=== PATIENT | female | born 1955 | race African-American/Black ===

== ENCOUNTER 2016-09-08 12:58 | Emergency (ER) | payer MEDICARE, MEDICAID ==
[2016-09-08] MEDS ORDERED: NS 0.9% 1000 ML* 1,000 ML IV ONE (18:03)
[2016-09-08] MEDS ORDERED: DICYCLOMINE HCL* 20 MG/2 ML VIAL IM ONE (18:03)
[2016-09-08] MEDS ORDERED: Ondansetron INJ* 2 MG/ML VIAL IV ONE (18:03)
--- NOTE | 2016-09-08 18:39 | ED ---
Abdominal Pain/Female - HPI Summary HPI Summary: Patient presents for symptom alleviation of abdominal cramping and watery stool for the last 1 day. No allev factors attempted. Denies systemic symptoms, new or bad foods, medicatoin changes, recent travel or antibiotics. Cramping is intermittent and diffuse. - History of Current Complaint Chief Complaint: EDAbdPain Stated Complaint: DIARRHEA Time Seen by Provider: 09/08/16 17:58 Hx Obtained From: Patient Onset/Duration: Gradual Onset, Lasting Days Timing: Intermittent Episode Lasting Pain Intensity: 5 Allergies/Adverse Reactions: Allergies Allergy/AdvReac Type Severity Reaction Status Date / Time No Known Allergies Allergy Verified 06/26/16 13:14 PMH/Surg Hx/FS Hx/Imm Hx Endocrine/Hematology History: Reports: Hx Diabetes Denies: Hx Anticoagulant Therapy, Hx Thyroid Disease Cardiovascular History: Reports: Hx Hypercholesterolemia, Hx Hypertension Denies: Hx Angioplasty, Hx Auto Implanted Cardiovert Defib, Hx Cardiac Arrest , Hx Congestive Heart Failure, Hx Coronary Artery Disease, Hx Deep Vein Thrombosis, Hx Pacemaker/ICD Respiratory History: Denies: Hx Asthma, Hx Chronic Obstructive Pulmonary Disease (COPD) GI History: Reports: Hx Gastroesophageal Reflux Disease, Hx Irritable Bowel, Other GI Disorders - IBS History: Denies: Hx Renal Disease Musculoskeletal History: Reports: Hx Back Problems, Other Musculoskeletal History - left hip joint disease Sensory History: Reports: Hx Contacts or Glasses, Hx Glaucoma Denies: Hx Hearing Aid Opthamlomology History: Reports: Hx Contacts or Glasses, Hx Glaucoma Neurological History: Reports: Hx Headaches Denies: Hx Dementia, Hx Seizures Psychiatric History: Denies: Hx Panic Disorder, Hx Substance Abuse - Cancer History Hx Chemotherapy: No Hx Radiation Therapy: No - Surgical History Surgery Procedure, Year, and Place: hysterectomy;. colonoscopy; - Immunization History Date of Tetanus Vaccine: pt unable to recall Date of Influenza Vaccine: pt unable to recall Infectious Disease History: No Infectious Disease History: Denies: Hx Hepatitis, Hx Human Immunodeficiency Virus (HIV), Hx Tuberculosis , Traveled Outside the [place] in Last 30 Days - Family History Known Family History: Positive: Other - Negative for Breast CA - Social History Alcohol Use: None Hx Substance Use: No Substance Use Type: Reports: None Hx Tobacco Use: No Smoking Status (MU): Never Smoked Tobacco Review of Systems Negative: Fever, Chills Cardiovascular: Negative Respiratory: Negative Positive: Abdominal Pain, Diarrhea. Negative: Vomiting Genitourinary: Negative All Other Systems Reviewed And Are Negative: Yes Physical Exam Triage Information Reviewed: Yes Vital Signs On Initial Exam: Initial Vitals Temp Pulse Resp BP Pulse Ox 98.1 F 87 20 138/71 100 09/08/16 13:05 09/08/16 13:05 09/08/16 13:05 09/08/16 13:05 09/08/16 13:05 Vital Signs Reviewed: Yes Appearance: Positive: Well-Appearing, No Pain Distress, Well-Nourished Skin: Positive: Warm, Skin Color Reflects Adequate Perfusion, Dry Neck: Positive: Supple Respiratory/Lung Sounds: Positive: Clear to Auscultation, Breath Sounds Present Cardiovascular: Positive: Normal, RRR, Pulses are Symmetrical in both Upper and Lower Extremities Abdomen Description: Positive: No Organomegaly, Soft. Negative: CVA Tenderness (R), CVA Tenderness (L), Distended, Guarding, Hernia @, Hepatomegaly Musculoskeletal: Positive: Normal, Strength/ROM Intact Neurological: Positive: Normal, Sensory/Motor Intact, Alert, Oriented to Person Place, Time, CN Intact II-III, Reflexes Intact, NV Bundle Intact Distally, Normal Gait Diagnostics - Vital Signs Vital Signs Temp Pulse Resp BP Pulse Ox 09/08/16 17:00 98.3 F 87 20 140/81 100 09/08/16 16:00 98.0 F 80 20 125/74 100 09/08/16 14:57 97.6 F 82 16 135/74 100 09/08/16 13:59 98.7 F 85 16 130/77 100 09/08/16 13:05 98.1 F 87 20 138/71 100 - Laboratory Lab Statement: Any lab studies that have been ordered have been reviewed, and results considered in the medical decision making process. Abdominal Pain Fem Course/Dx - Diagnoses Differential Diagnosis: Positive: Other - Primary concern for viral enteritis. She was offered imaging and lab evaluation, but was deferred and only wants supportive care. Will re-assess after IVF, antispasmodic, antiemetic. I reassessed her at 1953 and she felt better and desired discharge. I did re- offer lab and imaging testing. She again deferred, but did understand the clear return instructions and PCP follow up. Provider Diagnoses: Abdominal pain Discharge - Discharge Plan Condition: Improved Disposition: HOME Prescriptions: Dicyclomine CAP* [Bentyl CAP*] 20 mg PO TID PRN #20 cap PRN Reason: Abdominal Cramping Ondansetron TAB* [Zofran Tab*] 4 mg PO Q6H PRN #10 tab PRN Reason: Nausea Patient Education Materials: Abdominal Pain (ED) Referrals: Amado Morales MD [Medical Doctor] - Additional Instructions: Try the following for the abdominal cramping and nausea: 1. Zofran (Ondansetron) 1 to 2 tablets every 6 hours for nausea. One tablets for mild to moderate nausea. Two tablets for moderate to severe nausea. 2. Bentyl (Dicyclomine) 1 tablets every 6 to 8 hours for abdominal cramping.
[2016-09-08 20:16] LABS: Urine Bilirubin Negative (Negative); Urine Glucose Negative (Negative); Urine Nitrite Negative (Negative)
[2016-09-08 20:33] VITALS: BP 99/48
== END 2016-09-08 20:32 | disposition home or self-care (01) ==
LOC: ED 12:58
DX: R10.9 Unspecified abdominal pain (principal); E11.9 Type 2 diabetes mellitus without complications; I10 Essential (primary) hypertension; E78.00 Pure hypercholesterolemia, unspecified; K21.9 Gastro-esophageal reflux disease without esophagitis
CPT/HCPCS: 81003; 96360; 96374; 96375; 99282; J0500; J2405

== ENCOUNTER 2016-10-21 05:34 | Observation (INO) | payer MEDICARE, MEDICAID ==
[2016-10-21] MEDS ORDERED: Aspirin Low Dose CHEW TAB* 81 MG PO ONE (05:48)
[2016-10-21] MEDS ORDERED: Ondansetron INJ* 2 MG/ML VIAL IV ONE (06:03)
[2016-10-21] MEDS ORDERED: Morphine INJ* 4 MG/ML 1 ML SYRINGE IV ONE (06:03)
[2016-10-21 06:18] LABS: Hematocrit 38 % (35-47); Hemoglobin 12.2 g/dl (12.0-16.0); Mean Corpuscular HGB Conc 32 g/dl (31-36); Mean Corpuscular Hemoglobin 27 pg (27-31); Mean Corpuscular Volume 82 fL (80-97); Mean Platelet Volume 8 um3 (7.4-10.4); Red Cell Distribution Width 17 % (10.5-15); White Blood Count 8.9 10^3/ul (3.5-10.8)
[2016-10-21 06:36] LABS: ALT 15 U/L (7-52); Albumin 3.5 g/dL (3.2-5.2); Alkaline Phosphatase 73 U/L (34-104); BUN/Creatinine Ratio 15.4 (8-20); Blood Urea Nitrogen 12 mg/dL (6-24); CO2 Carbon Dioxide 24 mmol/L (22-32); Calcium 9.2 mg/dL (8.6-10.3); Chloride 106 mmol/L (101-111); EGFR African American 96.9 (>60); EGFR Non-African American 75.3 (>60); Globulin 3.7 g/dL (2-4); Glucose 102 mg/dL (70-100); Sodium 136 mmol/L (133-145); Total Protein 7.2 g/dL (6.4-8.9)
--- NOTE | 2016-10-21 06:51 | ED ---
Jt Do Claudia, scribed for Sinai Roche MD on 10/21/16 at 0608 . HPI Chest Pain - HPI Summary HPI Summary: 61 year old female presents to the ED with left anterior CP. Pt notes sudden onset yesterday. She note the pain has been constant since. She attributed it to gas since she has frequent gas but the pain persisted. Deep breaths do not aggravate he Sx and she has no recent travel and no calf pain. NO PMHX of DVT or PE, pt notes the worse an was at 0100 this am,. - History of Current Complaint Chief Complaint: EDChestPainROMI Time Seen by Provider: 10/21/16 05:47 Hx Obtained From: Patient Onset/Duration: Started Days Ago - yesterday 10/20 Timing: Constant Pain Intensity: 10 Pain Scale Used: 0-10 Numeric Chest Pain Location: Left Anterior Chest Pain Radiates: No Character: Pressure/Squeezing Aggravating Factor(s): Nothing Alleviating Factor(s): Nothing Associated Signs and Symptoms: Positive: Chest Pain. Negative: Shortness of Breath, Calf Pain/Swelling - Additional Pertinent History Primary Care Physician: [id number] - Allergy/Home Medications Allergies/Adverse Reactions: Allergies Allergy/AdvReac Type Severity Reaction Status Date / Time No Known Allergies Allergy Verified 10/21/16 06:18 Home Medications: Home Medications Kkyxaow-Mvivsaoggsqft-Bulljxzw [Excedrin Migraine] 1 tab PO BID 10/21/16 [ History Confirmed 10/21/16] Multiple Vitamin [Multivitamins] 1 cap PO DAILY 10/21/16 [History Confirmed ] Potassium 75 mg PO DAILY 10/21/16 [History Confirmed 10/21/16] PMH/Surg Hx/FS Hx/Imm Hx Previously Healthy: Yes Endocrine/Hematology History: Reports: Hx Diabetes Denies: Hx Anticoagulant Therapy, Hx Thyroid Disease Cardiovascular History: Reports: Hx Hypercholesterolemia, Hx Hypertension Denies: Hx Angioplasty, Hx Auto Implanted Cardiovert Defib, Hx Cardiac Arrest , Hx Congestive Heart Failure, Hx Coronary Artery Disease, Hx Deep Vein Thrombosis, Hx Pacemaker/ICD Respiratory History: Denies: Hx Asthma, Hx Chronic Obstructive Pulmonary Disease (COPD) GI History: Reports: Hx Gastroesophageal Reflux Disease, Hx Irritable Bowel, Other GI Disorders - IBS History: Denies: Hx Renal Disease Musculoskeletal History: Reports: Hx Back Problems, Other Musculoskeletal History - left hip joint disease Sensory History: Reports: Hx Contacts or Glasses, Hx Glaucoma Denies: Hx Hearing Aid Opthamlomology History: Reports: Hx Contacts or Glasses, Hx Glaucoma Neurological History: Reports: Hx Headaches Denies: Hx Dementia, Hx Seizures Psychiatric History: Denies: Hx Panic Disorder, Hx Substance Abuse - Cancer History Hx Chemotherapy: No Hx Radiation Therapy: No - Surgical History Surgery Procedure, Year, and Place: hysterectomy;. colonoscopy; - Immunization History Date of Tetanus Vaccine: pt unable to recall Date of Influenza Vaccine: pt unable to recall Infectious Disease History: No Infectious Disease History: Denies: Hx Hepatitis, Hx Human Immunodeficiency Virus (HIV), Hx Tuberculosis , Traveled Outside the [place] in Last 30 Days - Family History Known Family History: Positive: Other - Negative for Breast CA - Social History Occupation: Unemployed Lives: With Family Alcohol Use: None Hx Substance Use: No Substance Use Type: Reports: None Hx Tobacco Use: No Smoking Status (MU): Never Smoked Tobacco Review of Systems Constitutional: Negative Negative: Fever, Chills Eyes: Negative ENT: Negative Positive: Chest Pain Respiratory: Negative Negative: Shortness Of Breath Gastrointestinal: Negative Genitourinary: Negative Musculoskeletal: Negative Skin: Negative Neurological: Negative Psychological: Normal All Other Systems Reviewed And Are Negative: Yes Physical Exam Triage Information Reviewed: Yes Vital Signs On Initial Exam: Initial Vitals Temp Pulse Resp BP Pulse Ox 97.5 F 80 16 118/64 100 10/21/16 05:36 10/21/16 05:36 10/21/16 05:36 10/21/16 05:36 10/21/16 05:36 Vital Signs Reviewed: Yes Appearance: Positive: Well-Appearing, No Pain Distress Skin: Positive: Warm, Skin Color Reflects Adequate Perfusion, Dry Eyes: Positive: EOMI, YAIR Neck: Positive: Supple, Nontender Cardiovascular: Positive: RRR. Negative: Murmur, Rub, Leg Edema Left, Leg Edema Right Abdomen Description: Positive: Nontender, Soft Musculoskeletal: Positive: Strength/ROM Intact Neurological: Positive: Sensory/Motor Intact, Alert, Oriented to Person Place, Time, CN Intact II-III Psychiatric: Positive: Affect/Mood Appropriate Diagnostics - Vital Signs Vital Signs Temp Pulse Resp BP Pulse Ox 10/21/16 05:36 97.5 F 80 16 118/64 100 - Laboratory Lab Results: Lab Results 10/21/16 10/21/16 10/21/16 Range/Units 06:00 06:00 06:00 WBC 8.9 (3.5-10.8) 10^3/ul RBC 4.60 (4.0-5.4) 10^6/ul Hgb 12.2 (12.0-16.0) g/dl Hct 38 (35-47) % MCV 82 (80-97) fL MCH 27 (27-31) pg MCHC 32 (31-36) g/dl RDW 17 H (10.5-15) % Plt Count 303 (150-450) 10^3/ul MPV 8 (7.4-10.4) um3 Neut % (Auto) 56.9 (38-83) % Lymph % (Auto) 34.6 (25-47) % [place] % (Auto) 6.7 (1-9) % Eos % (Auto) 1.1 (0-6) % Baso % (Auto) 0.7 (0-2) % Absolute Neuts (auto) 5.1 (1.5-7.7) 10^3/ul Absolute Lymphs (auto) 3.1 (1.0-4.8) 10^3/ul Absolute Monos (auto) 0.6 (0-0.8) 10^3/ul Absolute Eos (auto) 0.1 (0-0.6) 10^3/ul Absolute Basos (auto) 0.1 (0-0.2) 10^3/ul Absolute Nucleated RBC 0.01 10^3/ul Nucleated RBC % 0.1 Sodium 136 (133-145) mmol/L Potassium Pending Chloride 106 (101-111) mmol/L Carbon Dioxide 24 (22-32) mmol/L Anion Gap Pending BUN 12 (6-24) mg/dL Creatinine 0.78 (0.51-0.95) mg/dL Est GFR ( Amer) 96.9 (>60) Est GFR (Non-Af Amer) 75.3 (>60) BUN/Creatinine Ratio 15.4 (8-20) Glucose 102 H (70-100) mg/dL Lactic Acid 1.0 (0.5-2.0) mmol/L Calcium 9.2 (8.6-10.3) mg/dL Total Bilirubin 0.50 (0.2-1.0) mg/dL AST Pending ALT 15 (7-52) U/L Alkaline Phosphatase 73 (34-104) U/L Troponin I 0.00 (<0.04) ng/mL Total Protein 7.2 (6.4-8.9) g/dL Albumin 3.5 (3.2-5.2) g/dL Globulin 3.7 (2-4) g/dL Albumin/Globulin Ratio 0.9 L (1-3) Result Diagrams: 10/21/16 06:00 10/21/16 06:00 Lab Statement: Any lab studies that have been ordered have been reviewed, and results considered in the medical decision making process. - Radiology CXR Xray Interpretation: No Acute Changes Radiology Interpretation Completed By: ED Physician - EKG 605 Cardiac Rate: NL EKG Rhythm: Sinus Rhythm - 80 beats/min EKG Interpretation: low voltage Chest Pain Course/Dx - Course Course Of Treatment: 61 yo female with cp 1st trop negative,talked with hospitalist about bringing pt in for obv - Diagnoses Provider Diagnoses: Chest pain Discharge - Discharge Plan Condition: Stable Disposition: ADMITTED TO [facility] documentation as recorded by the Jt garcia Claudia accurately reflects the service I personally performed and the decisions made by , Sinai Roche MD.
--- NOTE | 2016-10-21 07:49 | ADMNOTE ---
Subjective Date of Service: 10/21/16 Interval History: ADMISSION HISTORY AND PHYSICAL EXAM: Allergies Allergy/AdvReac Type Severity Reaction Status Date / Time No Known Allergies Allergy Verified 10/21/16 06:18 Home Medications Medication Instructions Recorded Confirmed Type Atorvastatin* [Lipitor 20 MG*] 20 mg PO BEDTIME 05/31/16 10/21/16 History Esomeprazole(NF) [Nexium(NF)] 40 mg PO DAILY 05/31/16 10/21/16 History Latanoprost 0.005%* [Xalatan 1 drop BOTH EYES QPM 05/31/16 10/21/16 History 0.005%*] Losartan TAB* [Cozaar TAB*] 25 mg PO DAILY 05/31/16 10/21/16 History Lubiprostone [Amitiza] 24 mcg PO BID 05/31/16 10/21/16 History Pioglitazone TAB* [Actos TAB*] 30 mg PO DAILY 05/31/16 10/21/16 History Sennosides [Senna-Lax] 17.2 mg PO BEDTIME PRN 05/31/16 10/21/16 History SitaGLIPtin (NF) [Januvia (NF)] 100 mg PO DAILY 05/31/16 10/21/16 History Timolol 0.5% OPTH.CHRIS* [Timoptic 1 drop BOTH EYES BID 05/31/16 10/21/16 History 0.5% Opth*] Meclizine TAB* [Antivert 12.5 TAB*] 25 mg PO Q8HR PRN #21 tab 06/01/16 10/21/16 Rx Dicyclomine CAP* [Bentyl CAP*] 20 mg PO TID PRN #20 cap 09/08/16 10/21/16 Rx Ondansetron TAB* [Zofran Tab*] 4 mg PO Q6H PRN #10 tab 09/08/16 10/21/16 Rx Hchpznf-Lxraqexmmnjnx-Oebzcoyf 1 tab PO BID 10/21/16 10/21/16 History [Excedrin Migraine] Multiple Vitamin [Multivitamins] 1 cap PO DAILY 10/21/16 10/21/16 History Potassium 75 mg PO DAILY 10/21/16 10/21/16 History HPI The patient was in her usual health until the afternoon of 10/20/16. Dr. Comer injects both her hips for bursitis every 4 months, last time in 09/09. She goes to PT often for this, went in AM 09/23/16. In PM 10/20 she developed L chest pain , exacerbated by pushing on one spot L chest. No other unusual activity. No cough, SOB. She sometimes takes APAP 500 mg for migraine or bursitis. Family History: Findings - Mother had stomach cancer, father had Hodgkin's lymphoma. Social History: Findings - Never smoked, no alcohol abuse. Lives with a son. 5 children, states they are all her SDM. Past Medical History: Findings - MANDY-BSO, HTN, glaucoma, DM, IBS, OA, HL, migraines. Review of Systems - Measurements Intake and Output: Intake and Output Last 24 Hours 10/19/16 10/20/16 10/21/16 10/22/16 06:59 06:59 06:59 06:59 Weight 230 lb - Review of Systems Constitutional Symptoms: Negative: Weight Gain, Weight Loss, Weakness, Fatigue, Fever, Night Sweats, Unexplained Falls, Other Dermatology: Positive: Normal HEENT: Positive: Normal Eyes: Positive: Glaucoma Thyroid: Positive: Normal Pulmonary: Positive: Normal Cardiology: Positive: Chest Pain Gastroenterology: Positive: Normal Genitourinay - Female: Positive: Menopause Musculoskeletal: Positive: Joint Pain Endocrinology: Positive: Obesity, Diabetes Mellitus Hematologic/Lymphatic: Negative: Anemia, Easy Brusing, Hx Leukemia, Hx Lymphoma, Use of Anticoagulant, Use of Antiplatelet Drugs, Other Neurology: Positive: Migraines Psychiatry: Positive: Normal Allergic/Immunologic: Negative: Hx Anaphylaxis, Hx Angioedema, Hx Environmental, Hx Seasonal, Athsma, Hx HIV, Immunocompromise, Swollen Glands LymphNodes, Other Objective Vital Signs 10/21/16 10/21/16 10/21/16 05:36 05:49 05:52 Temperature 97.5 F Pulse Rate 80 87 Respiratory 16 Rate Blood Pressure 118/64 141/76 (mmHg) O2 Sat by Pulse 100 100 Oximetry 10/21/16 10/21/16 10/21/16 06:00 06:04 06:12 Temperature Pulse Rate 83 Respiratory 16 20 Rate Blood Pressure 125/66 (mmHg) O2 Sat by Pulse 100 99 Oximetry 10/21/16 10/21/16 10/21/16 06:20 06:30 07:00 Temperature Pulse Rate 75 72 70 Respiratory 18 15 Rate Blood Pressure 128/78 119/73 (mmHg) O2 Sat by Pulse 98 96 Oximetry Oxygen Devices in Use Now: Nasal Cannula Appearance: Alert, partly up in bed. In good spirits. Looks comfortable. Eyes: No Scleral Icterus Ears/Nose/Mouth/Throat: Clear Oropharnyx, Mucous Membranes Moist Neck: NL Appearance and Movements; NL JVP, No Thyroid Enlargement, Masses Respiratory: Symmetrical Chest Expansion and Respiratory Effort, Clear to Auscultation, Clear to Percussion Cardiovascular: NL Sounds; No Murmurs; No JVD, RRR, No Edema, - - mild pressure L upper lateral ribs reproduces her chest pain. Abdominal: NL Sounds; No Tenderness; No Distention, No Hepatosplenomegaly, - Extremities: No Edema, No Clubbing, Cyanosis, - Skin: No Rash or Ulcers, No Nodules or Sclerosis, - Neurological: Alert and Oriented x 3, NL Sensation Result Diagrams: 10/21/16 06:00 10/21/16 06:00 Additional Lab and Data: Lab Results 10/21/16 10/21/16 10/21/16 Range/Units 06:00 06:00 06:00 WBC 8.9 (3.5-10.8) 10^3/ul RBC 4.60 (4.0-5.4) 10^6/ul Hgb 12.2 (12.0-16.0) g/dl Hct 38 (35-47) % MCV 82 (80-97) fL MCH 27 (27-31) pg MCHC 32 (31-36) g/dl RDW 17 H (10.5-15) % Plt Count 303 (150-450) 10^3/ul MPV 8 (7.4-10.4) um3 Neut % (Auto) 56.9 (38-83) % Lymph % (Auto) 34.6 (25-47) % [place] % (Auto) 6.7 (1-9) % Eos % (Auto) 1.1 (0-6) % Baso % (Auto) 0.7 (0-2) % Absolute Neuts (auto) 5.1 (1.5-7.7) 10^3/ul Absolute Lymphs (auto) 3.1 (1.0-4.8) 10^3/ul Absolute Monos (auto) 0.6 (0-0.8) 10^3/ul Absolute Eos (auto) 0.1 (0-0.6) 10^3/ul Absolute Basos (auto) 0.1 (0-0.2) 10^3/ul Absolute Nucleated RBC 0.01 10^3/ul Nucleated RBC % 0.1 Sodium 136 (133-145) mmol/L Potassium Pending Chloride 106 (101-111) mmol/L Carbon Dioxide 24 (22-32) mmol/L Anion Gap Pending BUN 12 (6-24) mg/dL Creatinine 0.78 (0.51-0.95) mg/dL Est GFR ( Amer) 96.9 (>60) Est GFR (Non-Af Amer) 75.3 (>60) BUN/Creatinine Ratio 15.4 (8-20) Glucose 102 H (70-100) mg/dL Lactic Acid 1.0 (0.5-2.0) mmol/L Calcium 9.2 (8.6-10.3) mg/dL Total Bilirubin 0.50 (0.2-1.0) mg/dL AST Pending ALT 15 (7-52) U/L Alkaline Phosphatase 73 (34-104) U/L Troponin I 0.00 (<0.04) ng/mL Total Protein 7.2 (6.4-8.9) g/dL Albumin 3.5 (3.2-5.2) g/dL Globulin 3.7 (2-4) g/dL Albumin/Globulin Ratio 0.9 L (1-3) Assess/Plan/Problems-Billing Assessment: - Patient Problems (1) Chest pain Current Visit: Yes Status: Acute Code(s): R07.9 - CHEST PAIN, UNSPECIFIED SNOMED Code(s): 87319426 Comment: Clinically chest wall pain. Repeat 6 hr troponin, repeat ECG. Reason for low voltage on ECG unclear, ? technical error. Tele. (2) Type 2 diabetes mellitus Current Visit: No Status: Chronic Comment: Cons carb diet, qid FS glucose with parameters. Continue home Actos and Januvia. (3) GERD (gastroesophageal reflux disease) Current Visit: No Status: Acute Code(s): K21.9 - GASTRO-ESOPHAGEAL REFLUX DISEASE WITHOUT ESOPHAGITIS SNOMED Code(s): 655386938 Comment: Took her Nexium at home today. (4) Irritable bowel syndrome (IBS) Current Visit: No Status: Chronic Comment: Continue dicyclomine PRN. (5) Obesity (BMI 30-39.9) Current Visit: Yes Status: Acute Code(s): E66.9 - OBESITY, UNSPECIFIED SNOMED Code(s): 095757727 Comment: BMI 39.5. (6) HTN (hypertension) Current Visit: No Status: Chronic Code(s): I10 - ESSENTIAL (PRIMARY) HYPERTENSION SNOMED Code(s): 27199793 Comment: Stable. Continue Cozaar. (7) Dizziness Current Visit: No Status: Acute Code(s): R42 - DIZZINESS AND GIDDINESS SNOMED Code(s): 278722808 Comment: Conitnue PRN meclizine. (8) Glaucoma Current Visit: Yes Status: Acute Code(s): H40.9 - UNSPECIFIED GLAUCOMA SNOMED Code(s): 47942641 Comment: Continue home opth meds.
[2016-10-21] MEDS ORDERED: Ondansetron TAB* 4 MG PO PRN (07:53)
[2016-10-21] MEDS ORDERED: Meclizine TAB* 12.5 MG PO PRN (07:53)
[2016-10-21] MEDS ORDERED: Senna TAB PO PRN (07:53)
[2016-10-21] MEDS ORDERED: Dicyclomine CAP* 10 MG PO PRN (07:53)
[2016-10-21] MEDS ORDERED: traMADol TAB* 50 MG PO PRN (07:59)
[2016-10-21] MEDS ORDERED: Acetaminophen TAB* 325 MG PO PRN (08:00)
--- NOTE | 2016-10-21 08:10 | RAD ---
INDICATION: Chest pain COMPARISON: Chest x-ray dated May 31, 2016 TECHNIQUE: Single AP portable view of the chest was obtained. FINDINGS: Image quality is compromised due to the relative inferiority of a portable chest x-ray. The heart and mediastinum exhibit normal size and contour. The lungs are grossly clear. There is no evidence of a large pleural effusion. Visualized bones are normal for the patient's age. IMPRESSION: No radiographic evidence for acute cardiopulmonary abnormality on this portable chest x-ray.
[2016-10-21] MEDS ORDERED: Pioglitazone TAB* 30 MG PO SCH (09:00)
[2016-10-21] MEDS ORDERED: OPTH BOTH EYES SCH (09:00)
[2016-10-21] MEDS ORDERED: TIMOLOL 0.5% BOTH EYES SCH (09:00)
[2016-10-21] MEDS ORDERED: Losartan TAB* 25 MG PO SCH (09:00)
[2016-10-21] MEDS: CMC:SitaGLIPtin (NF) 100 MG TAB PO SCH ×2 (09:56→10:20)
[2016-10-21 11:41] VITALS: BP 126/73
[2016-10-21] MEDS ORDERED: Ondansetron ODT TAB* 4 MG PO PRN (15:04)
[2016-10-21] MEDS ORDERED: Latanoprost 0.005%* 2.5 ml BTL BOTH EYES SCH (18:00)
[2016-10-21] MEDS ORDERED: Atorvastatin* 20 MG TAB PO SCH (21:00)
--- NOTE | 2016-10-22 08:32 | DS ---
CC: Dr. Morales DISCHARGE SUMMARY: DATE OF ADMISSION: DATE OF DISCHARGE: 10/21/16 HOSPITAL COURSE: This 61-year-old woman presented with pain in her left chest. It started in the a fternoon the day before admission she had gone to physical therapy for hip bursitis that morning. T here was no other unusual activity. She was not aware of anything that could have happened at physi aris therapy that might have done this. She did not complain of any cough. On examination, the pain was chest wall pain with tenderness, mild pressure over the area she pointe d to reproducing her pain. She was observed on telemetry, 2 troponins were done 6 hours apart both were within normal limits. EKG showed some artifactual changes, which went away on repeat EKG. She got some morphine in the emergency room, which made her a bit nauseated. I am giving her some o ndansetron ODT to take home and that she receive some antiemetic before she leaves as well. FINAL DIAGNOSES: 1. Chest wall pain. 2. Diabetes. 3. Gastroesophageal reflux disease. 4. Irritable bowel syndrome. 5. Obesity. 6. Hypertension. 7. Chronic dizziness. 8. Glaucoma. DISCHARGE MEDICATIONS: 1. Acetaminophen 500 to 650 mg every 4 hours p.r.n. 2. Ondansetron ODT 4 mg every 6 hours p.r.n. 3. Sennosides 17.2 mg at bedtime p.r.n. 4. Atorvastatin 20 mg at bedtime. 5. Latanoprost 0.005% both eyes 1 drop at bedtime. 6. Losartan 25 mg daily. 7. Timolol 0.5% 1 drop both eyes b.i.d. 8. Esomeprazole 40 mg daily. 9. Sitagliptin 100 mg daily. 10. Lubiprostone 24 mcg b.i.d. 11. Pioglitazone 30 mg daily. 12. Meclizine 25 mg every 8 hours p.r.n. 13. Dicyclomine 20 mg t.i.d. p.r.n. 14. Ondansetron 4 mg every 6 hours p.r.n. 15. Potassium 75 mg daily. 16. Multivitamin daily. 17. Excedrin migraine 1 b.i.d. p.r.n. [id number]/[facility] #: [id number]
== END 2016-10-21 16:20 | disposition home or self-care (01) ==
LOC: ED 05:34 → MEDTELE 07:07
PROVIDERS: ADMIT Internal Medicine; ATTEND Internal Medicine
DX: R07.89 Other chest pain (principal); E11.9 Type 2 diabetes mellitus without complications; K21.9 Gastro-esophageal reflux disease without esophagitis; K58.9 Irritable bowel syndrome, unspecified; I10 Essential (primary) hypertension; R42 Dizziness and giddiness; E66.9 Obesity, unspecified; H40.9 Unspecified glaucoma; Z79.899 Other long term (current) drug therapy
CPT/HCPCS: 36415; 71010; 80053; 83605; 84484; 85025; 93005; 96374; 96375; 99283; A9270-GY; G0378; J2270; J2405

== ENCOUNTER 2017-07-09 23:14 | Emergency (ER) | payer MEDICARE, OTHER ==
[2017-07-10 00:57] LABS: Hematocrit 36 % (35-47); Hemoglobin 11.9 g/dl (12.0-16.0); Mean Corpuscular HGB Conc 33 g/dl (31-36); Mean Corpuscular Hemoglobin 27 pg (27-31); Mean Corpuscular Volume 83 fL (80-97); Mean Platelet Volume 7 um3 (7.4-10.4); Red Blood Count 4.36 10^6/ul (4.0-5.4); Red Cell Distribution Width 17 % (10.5-15); White Blood Count 6.8 10^3/ul (3.5-10.8)
[2017-07-10 01:12] LABS: Albumin 3.6 g/dL (3.2-5.2); Calcium 9.2 mg/dL (8.6-10.3); EGFR African American 81.9 (>60); EGFR Non-African American 63.7 (>60); Globulin 3.2 g/dL (2-4); Potassium 3.5 mmol/L (3.5-5.0); Total Bilirubin 0.4 mg/dL (0.2-1.0); Total Protein 6.8 g/dL (6.4-8.9)
[2017-07-10 01:14] LABS: Troponin I 0.01 ng/mL (<0.04)
[2017-07-10 02:31] LABS: Urine Bilirubin Negative (Negative); Urine Glucose Negative (Negative); Urine Nitrite Negative (Negative)
[2017-07-10 03:10] VITALS: BP 126/76
--- NOTE | 2017-07-10 03:33 | ED ---
Suman Do Tiffany, scribandrei for Felton Guerra on 07/10/17 at 0059 . Complex/Multi-Sys Presentation - HPI Summary HPI Summary: This patient is a 62 year old F presenting to [facility] with a chief complaint of sore throat since last month. The pain worsened two days ago. The patient rates the pain 10/10 in severity. Symptoms aggravated by nothing. Symptoms alleviated by nothing. Patient reports fever, chest pain, throat pain and body aches. - History Of Current Complaint Chief Complaint: EDThroatPain Time Seen by Provider: 07/10/17 00:20 Hx Obtained From: Patient Onset/Duration: Lasting Days - One month, Still Present, Worse Since - Two days ago Aggravating Factor(s): Nothing Alleviating Factor(s): Nothing Associated Signs And Symptoms: Positive: Other - fever, chest pain, throat pain and body aches - Allergies/Home Medications Allergies/Adverse Reactions: Allergies Allergy/AdvReac Type Severity Reaction Status Date / Time No Known Allergies Allergy Verified 10/21/16 06:18 PMH/Surg Hx/FS Hx/Imm Hx Previously Healthy: No Endocrine/Hematology History: Reports: Hx Diabetes Denies: Hx Anticoagulant Therapy, Hx Thyroid Disease Cardiovascular History: Reports: Hx Hypercholesterolemia, Hx Hypertension, Other Cardiovascular Problems/Disorders - HYPERCHOLESTEROLEMIA Denies: Hx Angioplasty, Hx Auto Implanted Cardiovert Defib, Hx Cardiac Arrest , Hx Congestive Heart Failure, Hx Coronary Artery Disease, Hx Deep Vein Thrombosis, Hx Pacemaker/ICD Respiratory History: Denies: Hx Asthma, Hx Chronic Obstructive Pulmonary Disease (COPD) GI History: Reports: Hx Gastroesophageal Reflux Disease, Hx Irritable Bowel, Other GI Disorders - IBS History: Denies: Hx Renal Disease Musculoskeletal History: Reports: Hx Back Problems, Other Musculoskeletal History - left hip joint disease Sensory History: Reports: Hx Contacts or Glasses - glasses, Hx Glaucoma Denies: Hx Hearing Aid Opthamlomology History: Reports: Hx Contacts or Glasses - glasses, Hx Glaucoma Neurological History: Reports: Hx Headaches Denies: Hx Dementia, Hx Seizures Psychiatric History: Denies: Hx Panic Disorder, Hx Substance Abuse - Cancer History Hx Chemotherapy: No Hx Radiation Therapy: No - Surgical History Surgery Procedure, Year, and Place: hysterectomy;. colonoscopy; - Immunization History Date of Tetanus Vaccine: pt unable to recall Date of Influenza Vaccine: pt unable to recall Infectious Disease History: No Infectious Disease History: Denies: Hx Hepatitis, Hx Human Immunodeficiency Virus (HIV), Hx Tuberculosis , Traveled Outside the [place] in Last 30 Days - Family History Known Family History: Positive: Other - Negative for Breast CA - Social History Alcohol Use: None Hx Substance Use: No Substance Use Type: Reports: None Hx Tobacco Use: No Smoking Status (MU): Never Smoked Tobacco Review of Systems Positive: Fever Positive: Sore Throat Positive: Chest Pain Positive: Myalgia All Other Systems Reviewed And Are Negative: Yes Physical Exam - Summary Physical Exam Summary: Appearance: Well appearing, no pain distress Skin: warm, dry, reflects adequate perfusion Head/face: normal Eyes: EOMI, YAIR ENT: normal Neck: supple, non-tender Respiratory: CTA, breath sounds present Cardiovascular: RRR, pulses symmetrical Abdomen: non-tender, soft Bowel: present Musculoskeletal: normal, strength/ROM intact Neuro: normal, sensory motor intact, A&Ox3 Triage Information Reviewed: Yes Vital Signs On Initial Exam: Initial Vitals Temp Pulse Resp BP Pulse Ox 96.7 F 75 16 160/90 100 07/09/17 23:24 07/09/17 23:24 07/09/17 23:24 07/09/17 23:24 07/09/17 23:24 Vital Signs Reviewed: Yes Diagnostics - Vital Signs Vital Signs Temp Pulse Resp BP Pulse Ox 07/09/17 23:24 96.7 F 75 16 160/90 100 - Laboratory Lab Results: Lab Results 07/10/17 Range/Units 00:31 Group A Strep Rapid Negative (Negative) Result Diagrams: 07/10/17 00:40 07/10/17 00:40 Lab Statement: Any lab studies that have been ordered have been reviewed, and results considered in the medical decision making process. - Radiology CXR Radiology Interpretation Completed By: ED Physician - CXR is negative - EKG 00:43 Cardiac Rate: NL EKG Rhythm: Sinus Rhythm - 71 BPM EKG Interpretation: No acute changes Complex Multi-Symp Course/Dx Course Of Treatment: This patient is a 62 year old F presenting to [facility] with a chief complaint of sore throat since last month. The pain worsened two days ago. An EKG reveals sinus rhythm 71 BPM and no acute changes. CXR is, per ED physician, normal. Bloodwork/UA obtained. Patient will be discharged with follow up from PCP. She will be advised to take Tylenol. The patient is agreeable with this plan. - Diagnoses Differential Diagnoses/HQI/PQRI: Sepsis, Urinary Tract Infection, Other - pharyngitis, pneumonia Provider Diagnoses: Throat pain, Viral symptoms Discharge - Discharge Plan Condition: Stable Disposition: HOME Referrals: Amado Morales MD [Primary Care Provider] - 3 Days Additional Instructions: You are advised to take Tylenol. Follow up with PCP in 3 days. Return to the ED if you have any new or worsening symptoms. The documentation as recorded by the Suman garcia Tiffany accurately reflects the service I personally performed and the decisions made by , Felton Guerra.
--- NOTE | 2017-07-10 08:00 | RAD ---
INDICATION: Weakness. COMPARISON: Comparison is made with a prior chest x-ray study from October 21, 2016. TECHNIQUE: A portable view of the chest was obtained. FINDINGS: Cardiac and mediastinal contours appear to be within normal limits. The lungs are clear. No pleural effusion is seen. IMPRESSION: NO EVIDENCE FOR ACUTE DISEASE.
== END 2017-07-10 03:09 | disposition home or self-care (01) ==
LOC: ED 23:14
DX: J02.9 Acute pharyngitis, unspecified (principal); B34.9 Viral infection, unspecified; R50.9 Fever, unspecified; R07.9 Chest pain, unspecified
CPT/HCPCS: 36415; 71010; 80053; 81003; 83880; 84484; 85025; 85610; 85730; 87502; 87651; 93005; 99282

== ENCOUNTER 2017-08-20 19:52 | Emergency (ER) | payer MEDICARE, OTHER ==
[2017-08-20] MEDS ORDERED: Azithromycin TAB* 250 MG PO ONE (20:40)
[2017-08-20] MEDS ORDERED: Acetaminophen TAB* 325 MG PO ONE (20:40)
--- NOTE | 2017-08-20 20:46 | ED ---
Iron Do Thomas, scribed for Felton Guerra on 08/20/17 at 2040 . Throat Pain/Nasal Congestion - HPI Summary HPI Summary: The patient is a 62 year old female presenting to the emergency department complaining of a sore throat for the last three days. The pain is rated 10/10. The patient has treated the symptoms with acetaminophen today at 16:00. The patient additionally complains of a hoarse voice. The patient denies fever, chest pain, and shortness of breath. - History of Current Complaint Chief Complaint: EDThroatPain Time Seen by Provider: 08/20/17 20:24 Hx Obtained From: Patient Onset/Duration: Lasting Days - 3, Still Present Severity: Moderate Associated Signs And Symptoms: Positive: Hoarseness Cough: None Related History: Other (Noted In Comments) - Patient is not a smoker - Allergies/Home Medications Allergies/Adverse Reactions: Allergies Allergy/AdvReac Type Severity Reaction Status Date / Time No Known Allergies Allergy Verified 10/21/16 06:18 PMH/Surg Hx/FS Hx/Imm Hx Endocrine/Hematology History: Reports: Hx Diabetes Denies: Hx Anticoagulant Therapy, Hx Thyroid Disease Cardiovascular History: Reports: Hx Hypercholesterolemia, Hx Hypertension, Other Cardiovascular Problems/Disorders - HYPERCHOLESTEROLEMIA Denies: Hx Angioplasty, Hx Auto Implanted Cardiovert Defib, Hx Cardiac Arrest , Hx Congestive Heart Failure, Hx Coronary Artery Disease, Hx Deep Vein Thrombosis, Hx Pacemaker/ICD Respiratory History: Denies: Hx Asthma, Hx Chronic Obstructive Pulmonary Disease (COPD) GI History: Reports: Hx Gastroesophageal Reflux Disease, Hx Irritable Bowel, Other GI Disorders - IBS History: Denies: Hx Renal Disease Musculoskeletal History: Reports: Hx Back Problems, Other Musculoskeletal History - left hip joint disease Sensory History: Reports: Hx Contacts or Glasses - glasses, Hx Glaucoma Denies: Hx Hearing Aid Opthamlomology History: Reports: Hx Contacts or Glasses - glasses, Hx Glaucoma Neurological History: Reports: Hx Headaches Denies: Hx Dementia, Hx Seizures Psychiatric History: Denies: Hx Panic Disorder, Hx Substance Abuse - Cancer History Hx Chemotherapy: No Hx Radiation Therapy: No - Surgical History Surgery Procedure, Year, and Place: hysterectomy;. colonoscopy; - Immunization History Date of Tetanus Vaccine: pt unable to recall Date of Influenza Vaccine: pt unable to recall Infectious Disease History: No Infectious Disease History: Denies: Hx Hepatitis, Hx Human Immunodeficiency Virus (HIV), Hx Tuberculosis , Traveled Outside the [place] in Last 30 Days - Family History Known Family History: Positive: Other - Negative for Breast CA - Social History Alcohol Use: None Hx Substance Use: No Substance Use Type: Reports: None Hx Tobacco Use: No Smoking Status (MU): Never Smoked Tobacco Review of Systems Negative: Fever Positive: Sore Throat, Other - Hoarse voice All Other Systems Reviewed And Are Negative: Yes Physical Exam - Summary Physical Exam Summary: Appearance: Well appearing, no pain distress Skin: warm, dry, reflects adequate perfusion Head/face: normal Eyes: EOMI, YAIR ENT: The pharynx is erythematous. The tonsils are swollen. Neck: supple, non-tender Respiratory: CTA, breath sounds present Cardiovascular: RRR, pulses symmetrical Abdomen: non-tender, soft Bowel: present Musculoskeletal: normal, strength/ROM intact Neuro: normal, sensory motor intact, A&Ox3 Triage Information Reviewed: Yes Vital Signs On Initial Exam: Initial Vitals Temp Pulse Resp BP Pulse Ox 96.7 F 84 18 138/79 97 08/20/17 20:06 08/20/17 20:06 08/20/17 20:06 08/20/17 20:06 08/20/17 20:06 Vital Signs Reviewed: Yes Diagnostics - Vital Signs Vital Signs Temp Pulse Resp BP Pulse Ox 08/20/17 20:06 96.7 F 84 18 138/79 97 - Laboratory Lab Statement: Any lab studies that have been ordered have been reviewed, and results considered in the medical decision making process. EENT Course/Dx - Course Assessment/Plan: The patient is a 62 year old female presenting to the emergency department complaining of a sore throat for the last three days. The patient is diagnosed with pharyngitis and will be discharged home with primary care follow up. - Diagnoses Provider Diagnoses: Pharyngitis Discharge - Discharge Plan Condition: Stable Disposition: HOME Prescriptions: Azithromycin TAB* [Zithromax TAB (Z-RADHA) 250 mg #6 tabs] 250 mg PO DAILY #4 tab Patient Education Materials: Pharyngitis (ED) Referrals: Amado Morales MD [Primary Care Provider] - 3 Days Additional Instructions: Follow up with Dr. Morales in three days. Return to the emergency department for any new or worsening symptoms. The documentation as recorded by the Iron garcia Thomas accurately reflects the service I personally performed and the decisions made by me, Felton Guerra.
[2017-08-21 00:48] VITALS: BP 135/82
== END 2017-08-20 21:30 | disposition home or self-care (01) ==
LOC: ED 19:52
DX: J02.9 Acute pharyngitis, unspecified (principal); E11.9 Type 2 diabetes mellitus without complications; E78.00 Pure hypercholesterolemia, unspecified; I10 Essential (primary) hypertension; K21.9 Gastro-esophageal reflux disease without esophagitis
CPT/HCPCS: 99282; A9270-GY

== ENCOUNTER 2017-11-08 21:36 | Emergency (ER) | payer MEDICARE, OTHER ==
[2017-11-09] MEDS ORDERED: NS 0.9% 1000 ML* 1,000 ML IV ONE (00:55)
[2017-11-09] MEDS ORDERED: Pantoprazole IV* 40 MG IV ONE (00:55)
[2017-11-09] MEDS ORDERED: Ondansetron INJ* 2 MG/ML VIAL IV ONE (00:56)
[2017-11-09] MEDS ORDERED: Morphine VIAL* 4 MG/ML VIAL (1 ml vial) IV ONE (00:57)
[2017-11-09 01:26] LABS: ABS Basophils 0 10^3/ul (0-0.2); ABS Eosinophils 0.1 10^3/ul (0-0.6); ABS Lymphocytes 2.9 10^3/ul (1.0-4.8); ABS Monocytes 0.7 10^3/ul (0-0.8); ABS Neutrophils 5.3 10^3/ul (1.5-7.7); ABS Nucleated RBC 0 10^3/ul; Eosinophil % 0.6 % (0-6); Hematocrit 39 % (35-47); Hemoglobin 12.8 g/dl (12.0-16.0); Lymphocyte % 31.8 % (25-47); Mean Corpuscular HGB Conc 33 g/dl (31-36); Mean Corpuscular Hemoglobin 28 pg (27-31); Mean Corpuscular Volume 84 fL (80-97); Mean Platelet Volume 7.6 um3 (7.4-10.4); Nucleated Red Blood Cells % 0.1; Platelet Count 290 10^3/ul (150-450); Red Blood Count 4.61 10^6/ul (4.0-5.4); Red Cell Distribution Width 17 % (10.5-15)
[2017-11-09 01:42] LABS: EGFR Non-African American 77.4 (>60)
[2017-11-09 05:07] LABS: Urine Appearance Clear; Urine Blood Negative (Negative); Urine Color Straw; Urine Ketones Negative (Negative); Urine Protein Negative (Negative); Urine Urobilinogen Negative (Negative)
[2017-11-09] MEDS ORDERED: Metoclopramide IV* 5 MG/ML 2 ML VIAL IV SLOW PU ONE (05:25)
[2017-11-09 05:47] VITALS: BP 108/81
--- NOTE | 2017-11-09 05:56 | ED ---
Iron Do Thomas, scribed for Delroy Villanueva MD on 11/09/17 at 0046 . Abdominal Pain/Female - HPI Summary HPI Summary: The patient is a 62 year old female complaining of diffuse abdominal pain for the last five days. The pain is aggravated by food. The patient also complains of nausea, vomiting, and chills. Past medical history includes IBS and DM. Past surgical history includes hysterectomy. - History of Current Complaint Chief Complaint: EDAbdPain Stated Complaint: ABD PAIN Time Seen by Provider: 11/09/17 00:41 Hx Obtained From: Patient Onset/Duration: Lasting Days - 5, Still Present Timing: Constant Severity Currently: Severe Pain Intensity: 9 Pain Scale Used: 0-10 Numeric Location: Diffuse Aggravating Factor(s): Food Alleviating Factor(s): Nothing Associated Signs and Symptoms: Positive: Nausea. Negative: Fever Allergies/Adverse Reactions: Allergies Allergy/AdvReac Type Severity Reaction Status Date / Time No Known Allergies Allergy Verified 11/08/17 21:46 PMH/Surg Hx/FS Hx/Imm Hx Endocrine/Hematology History: Reports: Hx Diabetes Denies: Hx Anticoagulant Therapy, Hx Thyroid Disease Cardiovascular History: Reports: Hx Hypercholesterolemia, Hx Hypertension, Other Cardiovascular Problems/Disorders - HYPERCHOLESTEROLEMIA Denies: Hx Angioplasty, Hx Auto Implanted Cardiovert Defib, Hx Cardiac Arrest , Hx Congestive Heart Failure, Hx Coronary Artery Disease, Hx Deep Vein Thrombosis, Hx Pacemaker/ICD Respiratory History: Denies: Hx Asthma, Hx Chronic Obstructive Pulmonary Disease (COPD) GI History: Reports: Hx Gastroesophageal Reflux Disease, Hx Irritable Bowel, Other GI Disorders - IBS History: Denies: Hx Renal Disease Musculoskeletal History: Reports: Hx Back Problems, Other Musculoskeletal History - left hip joint disease Sensory History: Reports: Hx Contacts or Glasses - glasses, Hx Glaucoma Denies: Hx Hearing Aid Opthamlomology History: Reports: Hx Contacts or Glasses - glasses, Hx Glaucoma Neurological History: Reports: Hx Headaches Denies: Hx Dementia, Hx Seizures Psychiatric History: Denies: Hx Panic Disorder, Hx Substance Abuse - Cancer History Hx Chemotherapy: No Hx Radiation Therapy: No - Surgical History Surgery Procedure, Year, and Place: hysterectomy;. colonoscopy; - Immunization History Date of Tetanus Vaccine: pt unable to recall Date of Influenza Vaccine: pt unable to recall Infectious Disease History: No Infectious Disease History: Denies: Hx Hepatitis, Hx Human Immunodeficiency Virus (HIV), Hx Tuberculosis , Traveled Outside the [place] in Last 30 Days - Family History Known Family History: Positive: Other - Negative for Breast CA - Social History Alcohol Use: None Hx Substance Use: No Substance Use Type: Reports: None Hx Tobacco Use: No Smoking Status (MU): Never Smoked Tobacco Review of Systems Positive: Chills. Negative: Fever Positive: Abdominal Pain, Vomiting, Nausea All Other Systems Reviewed And Are Negative: Yes Physical Exam - Summary Physical Exam Summary: VITAL SIGNS: Reviewed. GENERAL: Patient is a well-developed and nourished female who is lying comfortable in the stretcher. Patient is not in any acute respiratory distress. HEAD AND FACE: No signs of trauma. No ecchymosis, hematomas or skull depressions. No sinus tenderness. EYES: PERRLA, EOMI x 2, No injected conjunctiva, no nystagmus. EARS: Hearing grossly intact. Ear canals and tympanic membranes are within normal limits. MOUTH: Oropharynx within normal limits. NECK: Supple, trachea is midline, no adenopathy, no JVD, no carotid bruit, no c- spine tenderness, neck with full ROM. CHEST: Symmetric, no tenderness at palpation LUNGS: Clear to auscultation bilaterally. No wheezing or crackles. CVS: Regular rate and rhythm, S1 and S2 present, no murmurs or gallops appreciated. ABDOMEN: Soft. She has diffuse tenderness. There is distention. No rebound no guarding, and no masses palpated. Bowel sounds are normal. EXTREMITIES: FROM in all major joints, no edema, no cyanosis or clubbing. NEURO: Alert and oriented x 3. No acute neurological deficits. Speech is normal and follows commands. SKIN: Dry and warm Triage Information Reviewed: Yes Vital Signs On Initial Exam: Initial Vitals Temp Pulse Resp BP Pulse Ox 97.1 F 91 18 147/76 99 11/08/17 21:43 11/08/17 21:43 11/08/17 21:43 11/08/17 21:43 11/08/17 21:43 Vital Signs Reviewed: Yes Diagnostics - Vital Signs Vital Signs Temp Pulse Resp BP Pulse Ox 11/09/17 00:26 72 17 126/82 100 11/09/17 00:23 82 99 11/08/17 23:46 98.1 F 90 16 139/72 100 04/18/18 21:43 97.1 F 91 18 147/76 99 - Laboratory Result Diagrams: 11/09/17 01:00 11/09/17 01:00 Lab Statement: Any lab studies that have been ordered have been reviewed, and results considered in the medical decision making process. - CT CT Abdomen/Pelvis CT Interpretation: No Acute Changes - Impression: "There is no bowel obstruction , free air, or flee fluid. Normal appendix visualized. Negative for colitis or diverticulitis. Non-obstructing periumbilical hernia noted. No urinary tract obstruction. Right lobe liver lesions again noted. Described on the June 26, 2016 scan. Normal spleen. Again note is made of a pancreatic lipoma. No obvious gallbladder abnormalities. Normal adrenal glands. No obvious abnormalities of the pelvic organs. Osseous structures intact. Dr. Villanueva has reviewed this report. CT Interpretation Completed By: Radiologist Abdominal Pain Fem Course/Dx - Course Course Of Treatment: The patient is a 62 year old female complaining of diffuse abdominal pain for the last five days that is aggravated by good. She also complains of nausea and vomiting. The patient was given IV fluids, morphine, Zofran, and Protonix. CT Abdomen/Pelvis shows There is no bowel obstruction, free air, or flee fluid. Normal appendix visualized. Negative for colitis or diverticulitis. Non-obstructing periumbilical hernia noted. No urinary tract obstruction. Right lobe liver lesions again noted. Described on the June 26, 2016 scan. Normal spleen. Again note is made of a pancreatic lipoma. No obvious gallbladder abnormalities. Normal adrenal glands. No obvious abnormalities of the pelvic organs. Osseous structures intact. The patient will be discharged home to follow up with primary care physician with diagnosis of abdominal pain. - Diagnoses Provider Diagnoses: Abdominal pain Discharge - Sign-Out/Discharge Documenting (check all that apply): Discharge - Discharge Plan Condition: Stable Disposition: HOME Prescriptions: Metoclopramide TAB* [Reglan TAB*] 10 mg PO Q6H PRN #20 tab PRN Reason: Nausea/Vomiting Patient Education Materials: Abdominal Pain (ED) Referrals: Amado Morales MD [Primary Care Provider] - 2 Days Additional Instructions: Follow up with your primary care physician in one to two days. Return to the emergency department for any new or worsening symptoms. The documentation as recorded by the Iron garcia Thomas accurately reflects the service I personally performed and the decisions made by me, Delroy Villanueva MD.
--- NOTE | 2017-11-09 08:09 | RAD ---
CLINICAL HISTORY: Abdominal pain COMPARISON: June 26, 2016 TECHNIQUE: Multiple contiguous axial CT scans were obtained of the abdomen and pelvis, without intravenous contrast enhancement. Coronal and sagittal multiplanar reformations are submitted for review. Oral contrast was administered. FINDINGS: The study is limited by the lack of intravenous contrast. This limits evaluation of the solid organs and vasculature. LUNG BASES: The lung bases are clear. LIVER: There are multiple low-attenuation hepatic parenchymal lesions. These are similar to the June 26, 2016 examination, these are not well evaluated on this noncontrast examination. BILE DUCTS: There is no intrahepatic or extrahepatic biliary dilatation. GALLBLADDER: The gallbladder is normal, without pericholecystic inflammatory change. PANCREAS: Again noted is a lipomatous lesion of the neck of the pancreas, similar to the previous examination. SPLEEN: Normal in size and appearance. UPPER GI TRACT: Evaluation of the gastrointestinal tract is limited by incomplete gastric distention. The upper GI tract is unremarkable. SMALL BOWEL AND MESENTERY: The small bowel is normal in contour, course, and caliber. There is no obstruction or dilatation. COLON: The colon is normal in contour, course, caliber. There is no pericolonic inflammatory change. There is a tubular, vermiform, hollow viscus that is blind ending, and originates from the cecum, consistent with a normal appendix. There is no periappendiceal inflammatory change. This is best seen on coronal images 53 through 55. ADRENALS: Normal bilaterally. KIDNEYS: The kidneys are normal in shape, size, contour, and axis. There is no hydronephrosis or nephrolithiasis. BLADDER: The bladder is smooth in contour. PELVIC ORGANS: The pelvic organs are not visualized. AORTA: The aorta is normal. IVC: Unremarkable LYMPH NODES: There is no lymphadenopathy by size criteria. ABDOMINAL WALL: There is diastasis recti with a broad-based and focal hernia, containing sidewall of small bowel without obstruction. BONES AND SOFT TISSUES: Unremarkable OTHER: None IMPRESSION: 1. AGAIN NOTED ARE MULTIPLE LOW-ATTENUATION HEPATIC PARENCHYMAL LESIONS. THESE ARE SIMILAR TO THE PREVIOUS EXAMINATION, BUT ARE NOT WELL EVALUATED ON THIS NONCONTRAST EXAMINATION. 2. NO ACUTE CT PATHOLOGY OF THE VISUALIZED ABDOMEN OR PELVIS.
== END 2017-11-09 05:58 | disposition home or self-care (01) ==
LOC: ED 21:36
DX: R10.9 Unspecified abdominal pain (principal); R11.2 Nausea with vomiting, unspecified
CPT/HCPCS: 36415; 74176; 80053; 81003; 82150; 83690; 85025; 86140; 87077; 87086; 96374; 96375; 99282; J2270; J2405; J2765

== ENCOUNTER 2017-11-10 18:23 | Emergency (ER) | payer MEDICARE, OTHER ==
[2017-11-10] MEDS ORDERED: Dicyclomine CAP* 10 MG PO ONE (19:39)
[2017-11-10] MEDS ORDERED: Ondansetron ODT TAB* 4 MG PO ONE (19:39)
[2017-11-10] MEDS ORDERED: traMADol TAB* 50 MG PO ONE (19:41)
[2017-11-10 19:49] LABS: ABS Basophils 0 10^3/ul (0-0.2); ABS Eosinophils 0 10^3/ul (0-0.6); ABS Lymphocytes 2.4 10^3/ul (1.0-4.8); ABS Monocytes 0.6 10^3/ul (0-0.8); ABS Neutrophils 4.5 10^3/ul (1.5-7.7); ABS Nucleated RBC 0 10^3/ul; Eosinophil % 0.6 % (0-6); Hematocrit 37 % (35-47); Lymphocyte % 31.5 % (25-47); Mean Corpuscular HGB Conc 33 g/dl (31-36); Mean Corpuscular Hemoglobin 28 pg (27-31); Mean Corpuscular Volume 84 fL (80-97); Mean Platelet Volume 7.4 um3 (7.4-10.4); Nucleated Red Blood Cells % 0.1; Platelet Count 276 10^3/ul (150-450); Red Blood Count 4.35 10^6/ul (4.0-5.4); Red Cell Distribution Width 17 % (10.5-15); White Blood Count 7.6 10^3/ul (3.5-10.8)
[2017-11-10 20:06] LABS: EGFR Non-African American 58.4 (>60)
--- NOTE | 2017-11-10 21:04 | ED ---
Abdominal Pain/Female - HPI Summary HPI Summary: C/O DIFFUSE ABDO PAIN, NAUSEA X 6 DAYS. SEEN HERE 2 DAYS AGO FOR SAME, LABS, AND IMAGING NEG, GIVEN RX FOR REGLAN. STATES NO IMPROVEMENT IN SX AND STOPPED REGLAN BECAUSE IT GIVES HER "DRY MOUTH". - History of Current Complaint Chief Complaint: EDAbdPain Stated Complaint: ABD PAIN Time Seen by Provider: 11/10/17 19:19 Hx Obtained From: Patient ?: No Onset/Duration: Sudden Onset Timing: Constant Severity Initially: Moderate Severity Currently: Severe Pain Intensity: 10 Pain Scale Used: 0-10 Numeric Location: Diffuse Radiates: No Character: Burning Aggravating Factor(s): Nothing Alleviating Factor(s): Nothing Associated Signs and Symptoms: Positive: Decreased Appetite, Nausea Allergies/Adverse Reactions: Allergies Allergy/AdvReac Type Severity Reaction Status Date / Time No Known Allergies Allergy Verified 11/08/17 21:46 PMH/Surg Hx/FS Hx/Imm Hx Endocrine/Hematology History: Reports: Hx Diabetes Denies: Hx Anticoagulant Therapy, Hx Thyroid Disease Cardiovascular History: Reports: Hx Hypercholesterolemia, Hx Hypertension, Other Cardiovascular Problems/Disorders - HYPERCHOLESTEROLEMIA Denies: Hx Angioplasty, Hx Auto Implanted Cardiovert Defib, Hx Cardiac Arrest , Hx Congestive Heart Failure, Hx Coronary Artery Disease, Hx Deep Vein Thrombosis, Hx Pacemaker/ICD Respiratory History: Denies: Hx Asthma, Hx Chronic Obstructive Pulmonary Disease (COPD) GI History: Reports: Hx Gastroesophageal Reflux Disease, Hx Irritable Bowel, Other GI Disorders - IBS History: Denies: Hx Renal Disease Musculoskeletal History: Reports: Hx Back Problems, Other Musculoskeletal History - left hip joint disease Sensory History: Reports: Hx Contacts or Glasses - glasses, Hx Glaucoma Denies: Hx Hearing Aid Opthamlomology History: Reports: Hx Contacts or Glasses - glasses, Hx Glaucoma Neurological History: Reports: Hx Headaches Denies: Hx Dementia, Hx Seizures Psychiatric History: Denies: Hx Panic Disorder, Hx Substance Abuse - Cancer History Hx Chemotherapy: No Hx Radiation Therapy: No - Surgical History Surgery Procedure, Year, and Place: hysterectomy;. colonoscopy; - Immunization History Date of Tetanus Vaccine: pt unable to recall Date of Influenza Vaccine: pt unable to recall Infectious Disease History: No Infectious Disease History: Denies: Hx Hepatitis, Hx Human Immunodeficiency Virus (HIV), Hx Tuberculosis , Traveled Outside the [place] in Last 30 Days - Family History Known Family History: Positive: Other - Negative for Breast CA - Social History Alcohol Use: None Hx Substance Use: No Substance Use Type: Reports: None Hx Tobacco Use: No Smoking Status (MU): Never Smoked Tobacco Review of Systems Constitutional: Negative Eyes: Negative Cardiovascular: Negative Respiratory: Negative Positive: Abdominal Pain, Nausea Genitourinary: Negative Musculoskeletal: Negative Skin: Negative Neurological: Negative Psychological: Normal All Other Systems Reviewed And Are Negative: Yes Physical Exam Triage Information Reviewed: Yes Vital Signs On Initial Exam: Initial Vitals Temp Pulse Resp BP Pulse Ox 97.4 F 96 20 151/83 99 11/10/17 18:24 11/10/17 18:24 11/10/17 18:24 11/10/17 18:24 11/10/17 18:24 Vital Signs Reviewed: Yes Appearance: Positive: Well-Appearing Skin: Positive: Warm Head/Face: Positive: Normal Head/Face Inspection Eyes: Positive: Normal Neck: Positive: Supple Respiratory/Lung Sounds: Positive: Clear to Auscultation Cardiovascular: Positive: Normal Abdomen Description: Positive: Other: - TENDER AT UMBILICUS Musculoskeletal: Positive: Normal Neurological: Positive: Normal Psychiatric: Positive: Normal - Deja Coma Scale Best Eye Response: 4 - Spontaneous Best Motor Response: 6 - Obeys Commands Best Verbal Response: 5 - Oriented Coma Scale Total: 15 Diagnostics - Vital Signs Vital Signs Temp Pulse Resp BP Pulse Ox 11/10/17 18:24 97.4 F 96 20 151/83 99 - Laboratory Lab Results: Lab Results 11/10/17 11/10/17 Range/Units 19:42 19:42 WBC 7.6 (3.5-10.8) 10^3/ul RBC 4.35 (4.0-5.4) 10^6/ul Hgb 12.0 (12.0-16.0) g/dl Hct 37 (35-47) % MCV 84 (80-97) fL MCH 28 (27-31) pg MCHC 33 (31-36) g/dl RDW 17 H (10.5-15) % Plt Count 276 (150-450) 10^3/ul MPV 7.4 (7.4-10.4) um3 Neut % (Auto) 59.4 (38-83) % Lymph % (Auto) 31.5 (25-47) % [place] % (Auto) 8.0 H (0-7) % Eos % (Auto) 0.6 (0-6) % Baso % (Auto) 0.5 (0-2) % Absolute Neuts (auto) 4.5 (1.5-7.7) 10^3/ul Absolute Lymphs (auto) 2.4 (1.0-4.8) 10^3/ul Absolute Monos (auto) 0.6 (0-0.8) 10^3/ul Absolute Eos (auto) 0 (0-0.6) 10^3/ul Absolute Basos (auto) 0 (0-0.2) 10^3/ul Absolute Nucleated RBC 0 10^3/ul Nucleated RBC % 0.1 Sodium 138 L (139-145) mmol/L Potassium 4.1 (3.5-5.0) mmol/L Chloride 105 (101-111) mmol/L Carbon Dioxide 28 (22-32) mmol/L Anion Gap 5 (2-11) mmol/L BUN 16 (6-24) mg/dL Creatinine 0.97 H (0.51-0.95) mg/dL Est GFR ( Amer) 75.1 (>60) Est GFR (Non-Af Amer) 58.4 (>60) BUN/Creatinine Ratio 16.5 (8-20) Glucose 111 H (70-100) mg/dL Calcium 9.3 (8.6-10.3) mg/dL Total Bilirubin 0.40 (0.2-1.0) mg/dL AST 13 (13-39) U/L ALT 15 (7-52) U/L Alkaline Phosphatase 66 (34-104) U/L Total Protein 6.7 (6.4-8.9) g/dL Albumin 3.5 (3.2-5.2) g/dL Globulin 3.2 (2-4) g/dL Albumin/Globulin Ratio 1.1 (1-3) Lipase 34 (11.0-82.0) U/L Result Diagrams: 11/10/17 19:42 11/10/17 19:42 Lab Statement: Any lab studies that have been ordered have been reviewed, and results considered in the medical decision making process. Re-Evaluation - Re-Evaluation N Re-Evaluation Time: 21:37 - Comment: PT STATES ABDO PAIN AND NAUSEA IMPROVED. LABS AND IMAGING YESTERDAY AND TODAY UNREMARKABALE. PT WILLING TO TRY HOME RX FOR ZOFRAN, BENTYL AND TRAMADOL AND FOLLOW UP WITH GI NEXT WEEK, Abdominal Pain Fem Course/Dx - Diagnoses Differential Diagnosis: Positive: Irritable Bowel Syndrome, Pancreatitis, Peptic Ulcer Disease Provider Diagnoses: Abdominal pain Discharge - Sign-Out/Discharge Documenting (check all that apply): Discharge - Discharge Plan Condition: Stable Disposition: HOME Prescriptions: Dicyclomine CAP* [Bentyl CAP*] 20 mg PO TID PRN 5 Days #30 cap PRN Reason: Pain Ondansetron ODT TAB* [Zofran 4 MG Odt TAB*] 4 mg PO Q8H PRN 4 Days #14 tab.odt PRN Reason: Nausea Tramadol HCl 50 mg PO TID 4 Days #12 tablet MDD 3 Referrals: Amado Morales MD [Primary Care Provider] - Omer Huff MD [Medical Doctor] - Additional Instructions: FOLLOW UP WITH GI SPECIALIST DR HUFF. RETURN TO ED FOR ANY NEW OR WORSENING SYMPTOMS. - Billing Disposition and Condition Condition: STABLE Disposition: HOME
[2017-11-10 22:18] VITALS: BP 127/59
== END 2017-11-10 22:17 | disposition home or self-care (01) ==
LOC: ED 18:23
DX: E11.9 Type 2 diabetes mellitus without complications (principal); I10 Essential (primary) hypertension; E78.00 Pure hypercholesterolemia, unspecified
CPT/HCPCS: 36415; 80053; 83690; 85025; 99282; A9270-GY

== ENCOUNTER 2018-03-18 15:58 | Emergency (ER) | payer MEDICARE, MEDICAID ==
[2018-03-18 16:17] VITALS: BP 125/87
--- NOTE | 2018-03-18 17:11 | UC ---
Throat Pain/Nasal Noam HPI - HPI Summary HPI Summary: [address] AND COUGH. HAS LOST HER VOICE. NO FEVER, N/V/D. - History of Current Complaint Chief Complaint: UCRespiratory Stated Complaint: SORE THROAT Time Seen by Provider: 03/18/18 16:37 Hx Obtained From: Patient Onset/Duration: Gradual Onset, Lasting Days, Still Present Severity: Moderate Pain Intensity: 10 - IN NO DISTRESS Pain Scale Used: 0-10 Numeric Cough: Productive Associated Signs & Symptoms: Positive: Hoarseness. Negative: Dysphagia, FB Sensation, Wheezing - Allergies/Home Medications Allergies/Adverse Reactions: Allergies Allergy/AdvReac Type Severity Reaction Status Date / Time No Known Allergies Allergy Verified 03/18/18 16:18 PMH/Surg Hx/FS Hx/Imm Hx Endocrine History: Diabetes Cardiovascular History: Hypertension Other History Of: Negative For: Anticoagulant Therapy - Surgical History Surgical History: Yes Surgery Procedure, Year, and Place: hysterectomy;. colonoscopy; - Family History Known Family History: Positive: Hypertension, Other - Negative for Breast CA - Social History Alcohol Use: None Substance Use Type: None Smoking Status (MU): Never Smoked Tobacco Review of Systems Constitutional: Negative ENT: Sore Throat, Other - HOARSE Respiratory: Cough Cardiovascular: Negative Gastrointestinal: Negative All Other Systems Reviewed And Are Negative: Yes Physical Exam Triage Information Reviewed: Yes Appearance: Well-Appearing, No Pain Distress, Well-Nourished Vital Signs: Initial Vital Signs Temp 99.9 F 03/18/18 16:15 Pulse 84 03/18/18 16:15 Resp 18 03/18/18 16:15 BP 125/87 03/18/18 16:15 Pulse Ox 97 03/18/18 16:15 Vital Signs Reviewed: Yes Eyes: Positive: Conjunctiva Clear ENT: Positive: Hearing grossly normal, Pharynx normal, TMs normal Neck: Positive: Supple, Nontender, No Lymphadenopathy Respiratory Exam: Normal Cardiovascular Exam: Normal Abdomen Description: Positive: Soft Musculoskeletal: Positive: No Edema Neurological: Positive: Alert Psychological: Positive: Age Appropriate Behavior Skin: Negative: rashes Throat Pain/Nasal Course/Dx - Differential Dx/Diagnosis Provider Diagnoses: 1. ACUTE URI. 2. LARYNGITIS Discharge - Sign-Out/Discharge Documenting (check all that apply): Patient Departure All imaging exams completed and their final reports reviewed: No Studies - Discharge Plan Condition: Stable Disposition: HOME Prescriptions: Azithromycin 500 mg PO DAILY #5 tab Patient Education Materials: Laryngitis (ED), Upper Respiratory Infection (ED) Referrals: Amado Morales MD [Primary Care Provider] - If Needed Additional Instructions: YOUR SYMPTOMS ARE LIKELY VIRALLY MEDIATED AND SHOULD RESOLVE ON THEIR OWN WITH TIME. NO INDICATION FOR ANTIBIOTICS AT PRESENT. REST, HYDRATE, OTC MEDS NEEDED. IF YOU ARE NOT IMPROVING IN A FEW DAYS GO AHEAD AND FILL RX FOR ANTIBIOTIC. IF YOU START IT TAKE IT FOR THE FULL COURSE. SEEK FOLLOW-UP IF YOU ARE NOT IMPROVING OVER THE NEXT 1-2 WEEKS. - Billing Disposition and Condition Condition: STABLE Disposition: Home
== END 2018-03-18 17:08 | disposition home or self-care (01) ==
LOC: UCEAST 15:58
DX: J04.0 Acute laryngitis (principal); E11.9 Type 2 diabetes mellitus without complications; I10 Essential (primary) hypertension
CPT/HCPCS: 87651; 99212; G0463

== ENCOUNTER → 2018-03-28 02:38 | Emergency (ER) | payer MEDICARE, MEDICAID ==
[~2018-03-28 02:38] MED LIST: Cyclobenzaprine TAB* 10 MG PO ONE; Ketorolac INJ* 60 MG/2 ML VIAL IM ONE; oxyCODONE/Acetamin 5/325 MG* TAB PO ONE
--- NOTE | 2018-03-28 03:06 | ED ---
Back Pain - HPI Summary HPI Summary: This patient is a 62 year old F presenting to [facility] with a chief complaint of right hip pain since 3 days ago. The patient rates the pain 10/10 in severity. Patient denies trauma, any injury, or urinary symptoms. She took Tylenol for pain at home. Patient used ice packs which failed to alleviate the pain. - History of Current Complaint Chief Complaint: EDHipPelvisInjury Stated Complaint: FLANK PAIN Time Seen by Provider: 03/28/18 02:54 Hx Obtained From: Patient Onset/Duration: Lasting Days - 3 days ago, Still Present Onset/Duration: Started Days Ago - 3 days ago, Still Present Timing: Constant Severity Initially: Severe Severity Currently: Severe Pain Intensity: 10 Pain Scale Used: 0-10 Numeric Aggravating Symptom(s): Movement Associated Signs And Symptoms: Positive: Flank Pain - Right flank pain, Other - Denies urinary symptoms. Negative: Bladder Incontinence - Allergies/Home Medications Allergies/Adverse Reactions: Allergies Allergy/AdvReac Type Severity Reaction Status Date / Time No Known Allergies Allergy Verified 03/28/18 02:50 PMH/Surg Hx/FS Hx/Imm Hx Endocrine/Hematology History: Reports: Hx Diabetes Denies: Hx Anticoagulant Therapy, Hx Thyroid Disease Cardiovascular History: Reports: Hx Hypercholesterolemia, Hx Hypertension, Other Cardiovascular Problems/Disorders - HYPERCHOLESTEROLEMIA Denies: Hx Angioplasty, Hx Auto Implanted Cardiovert Defib, Hx Cardiac Arrest , Hx Congestive Heart Failure, Hx Coronary Artery Disease, Hx Deep Vein Thrombosis, Hx Pacemaker/ICD Respiratory History: Denies: Hx Asthma, Hx Chronic Obstructive Pulmonary Disease (COPD) GI History: Reports: Hx Gastroesophageal Reflux Disease, Hx Irritable Bowel, Other GI Disorders - IBS History: Denies: Hx Renal Disease Musculoskeletal History: Reports: Hx Back Problems, Other Musculoskeletal History - left hip joint disease Sensory History: Reports: Hx Contacts or Glasses - glasses, Hx Glaucoma Denies: Hx Hearing Aid Opthamlomology History: Reports: Hx Contacts or Glasses - glasses, Hx Glaucoma Neurological History: Reports: Hx Headaches Denies: Hx Dementia, Hx Seizures Psychiatric History: Denies: Hx Panic Disorder, Hx Substance Abuse - Cancer History Hx Chemotherapy: No Hx Radiation Therapy: No - Surgical History Surgery Procedure, Year, and Place: hysterectomy;. colonoscopy; - Immunization History Date of Tetanus Vaccine: pt unable to recall Date of Influenza Vaccine: pt unable to recall Infectious Disease History: No Infectious Disease History: Denies: Hx Hepatitis, Hx Human Immunodeficiency Virus (HIV), Hx Tuberculosis , Traveled Outside the [place] in Last 30 Days - Family History Known Family History: Positive: Hypertension, Other - Negative for Breast CA - Social History Occupation: Unemployed Alcohol Use: None Hx Substance Use: No Substance Use Type: Reports: None Hx Tobacco Use: No Smoking Status (MU): Never Smoked Tobacco Review of Systems Negative: Fever, Other - Denies any traum or injury Positive: flank pain - Right flank pain. Negative: other - Denies urinary symptoms All Other Systems Reviewed And Are Negative: Yes Physical Exam - Summary Physical Exam Summary: VITAL SIGNS: Reviewed. GENERAL: Patient is a well-developed and nourished FEMALE who is lying comfortable in the stretcher. Patient is not in any acute respiratory distress. HEAD AND FACE: No signs of trauma. No ecchymosis, hematomas or skull depressions. No sinus tenderness. EYES: PERRLA, EOMI x 2, No injected conjunctiva, no nystagmus. EARS: Hearing grossly intact. Ear canals and tympanic membranes are within normal limits. MOUTH: Oropharynx within normal limits. NECK: Supple, trachea is midline, no adenopathy, no JVD, no carotid bruit, no c- spine tenderness, neck with full ROM. CHEST: Symmetric, no tenderness at palpation LUNGS: Clear to auscultation bilaterally. No wheezing or crackles. CVS: Regular rate and rhythm, S1 and S2 present, no murmurs or gallops appreciated. ABDOMEN: Soft, non-tender. No signs of distention. No rebound no guarding, and no masses palpated. Bowel sounds are normal. EXTREMITIES: Tenderness over R mid buttock. Unable to lift RLE over stretcher because of pain. She is able to lift her LLE up to 45 degrees. Mild edema bilateraly in both legs. NEURO: Alert and oriented x 3. No acute neurological deficits. Speech is normal and follows commands. SKIN: Dry and warm Triage Information Reviewed: Yes Vital Signs On Initial Exam: Initial Vitals Temp Pulse Resp BP Pulse Ox 97.3 F 100 16 143/99 98 03/28/18 02:47 03/28/18 02:47 03/28/18 02:47 03/28/18 02:47 03/28/18 02:47 Vital Signs Reviewed: Yes Diagnostics - Vital Signs Vital Signs Temp Pulse Resp BP Pulse Ox 03/28/18 02:47 97.3 F 100 16 143/99 98 - Laboratory Lab Statement: Any lab studies that have been ordered have been reviewed, and results considered in the medical decision making process. Back Pain Course/Dx - Course Assessment/Plan: This patient is a 62 year old F presenting to [facility] with a chief complaint of right hip pain since 3 days ago. The patient rates the pain 10/10 in severity. Patient denies trauma, any injury, or urinary symptoms. She took Tylenol for pain at home. Patient used ice packs which failed to alleviate the pain. Patient has been dx with right sdied sciatica and will be sent home with medications. - Diagnoses Provider Diagnoses: Sciatica, right side Discharge - Sign-Out/Discharge Documenting (check all that apply): Patient Departure - D/C - Discharge Plan Condition: Stable Disposition: HOME Prescriptions: Cyclobenzaprine TAB* [Flexeril 10 MG TAB*] 10 mg PO BID PRN #20 tab PRN Reason: Pain Ibuprofen TAB* [Motrin TAB* 800 MG] 800 mg PO Q6H PRN #30 tab PRN Reason: Pain Patient Education Materials: Sciatica (ED) Referrals: Amado Morales MD [Primary Care Provider] - 2 Days Additional Instructions: RETURN TO THE EMERGENCY DEPARTMENT FOR CHANGING OR WORSENING SYMPTOMS. FOLLOW UP WITH PCP IN 1-2 DAYS. - Attestation Statements Document Initiated by Scribe: Yes Documenting Scribe: Arun Arora Provider For Whom Scribe is Documenting (Include Credential): Brandon Villanueva MD Scribe Attestation: Arun Do, scribed for Brandon Villanueva MD on 03/28/18 at 0409.
[2018-03-28 04:29] VITALS: BP 116/69
== END | disposition home or self-care (01) ==
LOC: ED 02:38
DX: M54.31 Sciatica, right side (principal); R10.84 Generalized abdominal pain; M25.551 Pain in right hip
CPT/HCPCS: 96372; 99282; A9270-GY; J1885

== ENCOUNTER 2018-05-07 15:20 | Emergency (ER) | payer MEDICAID, MEDICARE, OTHER ==
--- OUTSIDE RECORDS SUMMARY | 2018-05-07 15:28 | XMS REPORT | Continuity of Care Document ---
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 Carmen MERRILL, Amado Primary Care Physician Unavailable Payers Type Date Identification Numbers Payment Provider Subscriber Policy Number: [id number] Medicare [facility] [email or web address]] Nayeli Melara PayID: [id number] [address] [place] [address] Expires: 2018 Policy Number: [id number] Medicaid [place] Nayeli Melara PayID: [id number] [address] [place] [address] Policy Number: [id number] [facility] Nayeli Melara PayID: [id number] [address] [place] [address] Advance Directives Description No Information Available Problems Date Description Provider Status Onset: 03/20/2014 Open-angle glaucoma Omer Leavitt M.D. Active Onset: 03/20/2014 Type 2 diabetes mellitus Omer Leavitt M.D. Active Onset: 03/20/2014 Nuclear senile cataract Omer Leavitt M.D. Active Onset: 07/23/2014 Headache Gigi Tan O.D. Active Onset: 06/05/2015 Primary open-angle glaucoma, severe Omer Leavitt M.D. Active stage Onset: 09/23/2015 Primary open-angle glaucoma, moderate Omer Leavitt M.D. Active stage Family History Date Family Member(s) Problem(s) Comments General Glaucoma General Diabetes General Brother Father Noncontributory Mother Noncontributory Social History Type Date Description Comments Sex Unknown ETOH Use Denies alcohol use Tobacco Use Start: Unknown Patient has never smoked Smoking Status Reviewed: 04/19/18 Patient has never smoked Allergies, Adverse Reactions, Alerts Description No Known Drug Allergies Medications Medication Date Status Form Strength Qnty SIG Indications Ordering Provider Timolol 03/20/ Active Solution 0.5% 5units Instill 1 H40.10x2 Omer Lan 2014 Drop Into Leavitt, Each Eye M.D. Two Times A Day Latanoprost 03/20/ Active Solution 0.005% 2.5uni Instill 1 H40.10x2 Omer 2013 ts Drop In Leavitt, Each Eye M.D. Every Night Atorvastatin / Active Tablets 20mg Unknown Calcium 0000 Januvia / Active Tablets 100mg Carmen MERRILL, 0000 Amado Klor-Con M20 / Active Tablets ER 20Meq Carmen MERRILL, 0000 Amado Losartan / Active Tablets 25mg Carmen MERRILL, Potassium 0000 Amado Nexium / Active Capsules DR 40mg Unknown 0000 Pioglitazone / Active Tablets 30mg Carmen MERRILL, HCL 0000 Amado Phenadoz / Active Suppository 25mg Unknown 0000 Amitiza / Active Capsules 24mcg Carmen MERRILL, 0000 Amado Potassium / Active Tablets ER 20Meq Carmen MERRILL, Chloride Ernestine 0000 Amado ER Sumatriptan / Active Tablets 25mg Unknown Succinate 0000 Ondansetron / Hx Tablets 4mg Take One Unknown HCL 0000 - Tablet By 2016 Every 6 Hours as Needed For Nausea Immunizations Description No Information Available Vital Signs Date Vital Result Comment 01/17/2018 8:48am Intraocular Pressure Right Eye 14 mmHg Intraocular Pressure Left Eye 14 mmHg 10/17/2017 9:02am Intraocular Pressure Right Eye 15 mmHg Intraocular Pressure Left Eye 14 mmHg 07/19/2017 9:43am Intraocular Pressure Right Eye 15 mmHg Intraocular Pressure Left Eye 16 mmHg 04/19/2017 9:30am Intraocular Pressure Right Eye 14 mmHg Intraocular Pressure Left Eye 12 mmHg 12/21/2016 11:19am Intraocular Pressure Right Eye 12 mmHg Intraocular Pressure Left Eye 14 mmHg 09/19/2016 10:53am Intraocular Pressure Right Eye 12 mmHg Intraocular Pressure Left Eye 12 mmHg 05/19/2016 10:49am Intraocular Pressure Right Eye 13 mmHg Intraocular Pressure Left Eye 14 mmHg 02/15/2016 2:02pm Intraocular Pressure Right Eye 12 mmHg Intraocular Pressure Left Eye 12 mmHg 09/23/2015 2:02pm Intraocular Pressure Right Eye 16 mmHg Intraocular Pressure Left Eye 16 mmHg 06/05/2015 1:26pm Intraocular Pressure Right Eye 16 mmHg Intraocular Pressure Left Eye 17 mmHg 02/27/2015 9:31am Intraocular Pressure Right Eye 15 mmHg Intraocular Pressure Left Eye 15 mmHg 11/17/2014 10:43am Intraocular Pressure Right Eye 15 mmHg Intraocular Pressure Left Eye 15 mmHg 08/19/2014 11:16am Intraocular Pressure Right Eye 15 mmHg Intraocular Pressure Left Eye 14 mmHg 07/23/2014 8:30am Intraocular Pressure Right Eye 20 mmHg Intraocular Pressure Left Eye 19 mmHg 03/20/2014 9:38am Intraocular Pressure Right Eye 14 mmHg Intraocular Pressure Left Eye 14 mmHg Results Description No Information Available Procedures Date Code Description Status 10/17/2017 48522 Oct, Optic Nerve Completed 10/17/2017 21273 Eye Exam Est Intermediate Completed 07/19/2017 42939 Fundus Photography W/Interpretation & Report Completed 07/19/2017 58698 Refraction Completed 07/19/2017 07273 Eye Exam Est Intermediate Completed 04/19/2017 63887 Eye Exam Est Intermediate Completed 12/21/2016 69061 Visual Field Exam Extended, Unilateral Or Bilateral Completed 12/21/2016 55722 Eye Exam Est Intermediate Completed 09/19/2016 17957 Oct, Optic Nerve Completed 09/19/2016 66266 Eye Exam Est Intermediate Completed 05/19/2016 31398 Eye Exam Est Comprehensive Completed 05/19/2016 56676 Refraction Completed 05/19/2016 52800 Ophthalmoscopy Subsequent Completed 05/19/2016 22012 Fundus Photography W/Interpretation & Report Completed 02/15/2016 90582 Eye Exam Est Intermediate Completed 09/23/2015 39393 Visual Field Exam Extended, Unilateral Or Bilateral Completed 09/23/2015 50632 Eye Exam Est Intermediate Completed 06/05/2015 02115 Oct, Optic Nerve Completed 06/05/2015 53174 Eye Exam Est Intermediate Completed 02/27/2015 99126 Fundus Photography W/Interpretation & Report Completed 02/27/2015 12399 Eye Exam Est Intermediate Completed 11/17/2014 51179 Eye Exam Est Intermediate Completed 08/19/2014 83433 Visual Field Exam Extended, Unilateral Or Bilateral Completed 08/19/2014 50323 Eye Exam Est Intermediate Completed 07/23/2014 29488 Eye Exam Est Intermediate Completed 03/20/2014 43051 Fundus Photography W/Interpretation & Report Completed 03/20/2014 11175 Refraction Completed 03/20/2014 37066 Eye Exam Est Comprehensive Completed 08/24/2011 13622 Visual Field Exam Extended, Unilateral Or Bilateral Completed 08/24/2011 97391 Eye Exam Est Intermediate Completed 12/10/2010 79726 Eye Exam Est Comprehensive Completed 12/10/2010 52915 Ophthalmoscopy Subsequent Completed 12/10/2010 85844 Fundus Photography W/Interpretation & Report Completed 06/09/2010 70551 Visual Field Exam Extended, Unilateral Or Bilateral Completed 06/09/2010 45575 Eye Exam Est Intermediate Completed 05/12/2010 10739 Visual Field Exam Extended, Unilateral Or Bilateral Completed 05/12/2010 73811 Refraction Completed 05/12/2010 89774 Eye Exam Est Intermediate Completed 05/12/2010 67789 Corneal Pachymetry, Unilateral/Bilateral Completed 03/23/2010 45073 Fundus Photography W/Interpretation & Report Completed 03/23/2010 44826 Ophthalmoscopy Initial Completed 03/23/2010 29694 Eye Exam New Comprehensive Completed Encounters Type Date Location Provider Dx Diagnosis Office Visit 01/17/2018 Main Office Gigi Stauffer, OD H40.1132 Primary open-angle 9:15a glaucoma, bilateral, moderate stage Office Visit 09/23/2011 Main Office Omer Leavitt, 365.10 Glaucoma Open Angle 1:15p M.D. Unspec Office Visit 03/22/2011 Main Office Omer Leavitt, 365.10 Glaucoma Open Angle 11:30a M.D. Unspec Plan of Treatment 04/19/2018 - Gigi Stauffer, ODH40.1132 Primary open-angle glaucoma, bilateral, moderate stageFollow up:3 mos full
--- OUTSIDE RECORDS SUMMARY | 2018-05-07 15:28 | XMS REPORT | Continuity of Care Document ---
:1955 External Reference #:[id number] Author Name Sridhar Lloyd MD Address [address] [place] [address] Care Team Providers Name Role Phone Luciano Morales M.D. Care Team Information Engineering Psychologist Unavailable Luciano Morales M.D. Primary Care Physician Unavailable Payers Type Date Identification Numbers Payment Provider Subscriber Effective: Policy Number: [id number] [place] Nayeli Melara 2018 SRVS PayID: [id number] [address] [place] [address] Effective: 2018 Policy Number: [id number] Medicaid/C Nayeli Melara Group Name: 2 1 Medicare Primary PayID: [id number] [address] [place] [address] Advance Directives Description No Information Available Problems Date Description Provider Status Onset: 04/13/2018 Chronic tonsillitis Sridhar Lloyd MD Active Family History Date Family Member(s) Problem(s) Comments General Diabetes General Migraine General Vertigo Social History Type Date Description Comments Sex Unknown Tobacco Use Start: Unknown Never Smoked Cigarettes Tobacco Use Start: Unknown Never Smoked Cigars Tobacco Use Start: Unknown Never Smoked A Pipe Smokeless Tobacco Never Used Smokeless Tobacco Allergies, Adverse Reactions, Alerts Description No Known Drug Allergies Medications Medication Date Status Form Strength Qnty SIG Indications Ordering Provider Latanoprost / Active Solution 0.005% [place] 0000 Omer MERRILL Losartan / Active Tablets 25mg [place], Potassium 0000 Luciano Benítez M.D. Januvia / Active Tablets 100mg [place], 0000 Luciano Benítez M.D. Dicyclomine / Active Capsules 10mg [place], HCL 0000 Luciano Benítez M.D. Carafate / Active Suspension 1GM/10ML [place], 0000 Luciano Benítez M.D. Atorvastatin / Active Tablets 20mg [place], Calcium 0000 Luciano Benítez M.D. Ondansetron / Active Tablets 4mg [place], 0000 Dispers Luciano Benítez M.D. Pioglitazone / Active Tablets 30mg [place], HCL 0000 Luciano Benítez M.D. Potassium / Active Tablets ER 20Meq [place], Chloride Ernestine 0000 Luciano ROJAS M.D. Phenadoz / Active Suppository 25mg [place] 0000 , Morales MERRILL Timolol / Active Solution 0.5% [place], Maleate 0000 Omer MERRILL Nexium / Active Capsules DR 40mg [place] 0000 , Morales MERRILL Vitamin D3 / Active Chewtabs 1000Unit As Unknown Adult Gummies 0000 directed Immunizations Description No Information Available Vital Signs Date Vital Result Comment 04/13/2018 9:47am Weight 237.50 lb Weight 107.730 kg Height 64.5 inches 5'4.50" Height in cm's 163.8 cm BMI (Body Mass Index) 40.1 kg/m2 Results Description No Information Available Procedures Description No Information Available Encounters Type Date Location Provider Dx Diagnosis Office Visit 04/13/2018 [place] Sridhar Lloyd J35.01 Chronic tonsillitis 9:30a 07/24/07 Plan of Treatment 04/13/2018 - Sridhar Lloyd [id number] Chronic tonsillitisComments:Chronic symptoms of recurring tonsillitis 2 without evidence of significant complications no indication for surgical management at this time I reassured her I advised her precaution for good hygiene toreduce exposure from her grandchildren.
[2018-05-07 15:35] VITALS: BP 136/92
--- NOTE | 2018-05-08 08:23 | UC ---
Discharge - Sign-Out/Discharge Documenting (check all that apply): Post-Discharge Follow Up All imaging exams completed and their final reports reviewed: No Studies - Discharge Plan Condition: Good Disposition: HOME Prescriptions: Amoxicillin/Clavulanate TAB* [Augmentin TAB 875*] 875 mg PO BID #14 tab methylPREDNISolone [Medrol] 0 mg PO DAILY #1 tab.ds.pk Patient Education Materials: Prednisone (By mouth), Acute Bronchitis (ED), Wheezing (ED) Referrals: Amado Morales MD [Primary Care Provider] - Additional Instructions: - Increase fluid intake - Steroids per pack instruction to help with breathing - Antibiotics as directed - Follow up with DR. Morales if no improvement within 2-3 days - humidifier at night to help with cough - Over the counter cough medication for symptoms - Billing Disposition and Condition Condition: GOOD Disposition: Home
--- NOTE | 2018-05-08 22:03 | UC ---
Shortness of Breath HPI - HPI Summary HPI Summary: 62 year old female with + tob use, recently dx'd with PNA by PCP, put on doxycycline, steroids last tues with initial improvement, but worsened over apst few days. symptoms have lasted for 2 weeks. + wheezing, + SOB with exertion, + tactile fevere, + productive cough, + chills. PMH + for migraines , GERD, hip, back pain increased nasal congestion/ pain - History of Current Complaint Chief Complaint: UCRespiratory Stated Complaint: URI Time Seen by Provider: 05/07/18 15:49 Hx Obtained From: Patient ?: No Onset/Duration: Gradual Onset, Lasting Weeks Timing: Constant Current Severity: Moderate Dyspnea At: Exertion Aggrevating Factors: Movement, Deep Breaths Alleviating Factors: Bronchodilators Associated Signs & Symptoms: Positive: Cough (Productive), Wheezing, Chest Pain w/Cough, Fever, Chills, Nasal Congestion - Allergy/Home Medications Allergies/Adverse Reactions: Allergies Allergy/AdvReac Type Severity Reaction Status Date / Time No Known Allergies Allergy Verified 05/07/18 15:36 Home Medications: Home Medications Potassium Chloride 20 meq PO DAILY WITH MEAL 05/07/18 [History Confirmed ] Promethazine HCl 25 mg RC DAILY WITH MEAL 05/07/18 [History Confirmed 05/07/18] Sucralfate SUSP (NF) [Carafate SUSP (NF)] 10 ml PO Q6HR 05/07/18 [History Confirmed 05/07/18] Tramadol HCl 50 mg PO DAILY WITH MEAL 05/07/18 [History Confirmed 05/07/18] PMH/Surg Hx/FS Hx/Imm Hx Previously Healthy: No Endocrine History: Diabetes Cardiovascular History: Cardiac Disease, Hypertension Respiratory History: Pneumonia GI/ History: Gastroesophageal Reflux Other History Of: Negative For: Anticoagulant Therapy - Surgical History Surgical History: Yes Surgery Procedure, Year, and Place: hysterectom 2004. colonoscopy; - Family History Known Family History: Positive: Hypertension, Other - Negative for Breast CA - Social History Alcohol Use: None Substance Use Type: None Smoking Status (MU): Never Smoked Tobacco Review of Systems Constitutional: Fever, Chills, Fatigue ENT: Sinus Congestion, Sinus Pain/Tenderness Respiratory: Shortness Of Breath, Cough Is Patient Immunocompromised?: No All Other Systems Reviewed And Are Negative: Yes Physical Exam Triage Information Reviewed: Yes Appearance: No Pain Distress, Well-Nourished, Ill-Appearing - minimal + wheezing Vital Signs: Initial Vital Signs Temp 97.9 F 05/07/18 15:29 Pulse 89 05/07/18 15:29 Resp 20 05/07/18 15:29 BP 136/92 05/07/18 15:29 Pulse Ox 100 05/07/18 15:29 Eyes: Positive: Conjunctiva Clear ENT: Positive: Pharynx normal, TMs normal, Sinus tenderness, Uvula midline Neck: Positive: Supple, Tenderness @ - submand, Enlarged Nodes @ - submand b/l Respiratory: Positive: Chest non-tender, No respiratory distress, No accessory muscle use, Crackles, Wheezing. Negative: Respiratory distress, Decreased breath sounds Cardiovascular: Positive: RRR, No Murmur, Pulses Normal Abdomen Description: Negative: CVA Tenderness (R), CVA Tenderness (L) Neurological Exam: Normal Psychological Exam: Normal Shortness of Breath Dx - Course Course Of Treatment: increased steroid dose to help with SOB, wheezing, continue ABX therapy, follow up with PCP - Differential Dx/Diagnosis Provider Diagnoses: sinusitis, acute bronchitis Discharge - Sign-Out/Discharge Documenting (check all that apply): Patient Departure All imaging exams completed and their final reports reviewed: No Studies - Discharge Plan Condition: Good Disposition: HOME Prescriptions: Amoxicillin/Clavulanate TAB* [Augmentin TAB 875*] 875 mg PO BID #14 tab methylPREDNISolone [Medrol] 0 mg PO DAILY #1 tab.ds.pk Patient Education Materials: Prednisone (By mouth), Acute Bronchitis (ED), Wheezing (ED) Referrals: Amado Morales MD [Primary Care Provider] - Additional Instructions: - Increase fluid intake - Steroids per pack instruction to help with breathing - Antibiotics as directed - Follow up with DR. Morales if no improvement within 2-3 days - humidifier at night to help with cough - Over the counter cough medication for symptoms - Billing Disposition and Condition Condition: GOOD Disposition: Home
== END 2018-05-07 16:37 | disposition home or self-care (01) ==
LOC: UCEAST 15:20
DX: J20.9 Acute bronchitis, unspecified (principal); J32.9 Chronic sinusitis, unspecified
CPT/HCPCS: 99212; G0463

== ENCOUNTER 2018-05-27 17:25 | Emergency (ER) | payer MEDICARE, OTHER ==
[2018-05-27 18:57] LABS: ABS Basophils 0 10^3/ul (0-0.2); ABS Eosinophils 0.2 10^3/ul (0-0.6); ABS Lymphocytes 2.1 10^3/ul (1.0-4.8); ABS Monocytes 0.6 10^3/ul (0-0.8); ABS Neutrophils 3.8 10^3/ul (1.5-7.7); ABS Nucleated RBC 0 10^3/ul; Eosinophil % 2.5 % (0-6); Hematocrit 35 % (35-47); Hemoglobin 11.5 g/dl (12.0-16.0); Lymphocyte % 31.6 % (25-47); Mean Corpuscular HGB Conc 33 g/dl (31-36); Mean Corpuscular Hemoglobin 27 pg (27-31); Mean Corpuscular Volume 84 fL (80-97); Mean Platelet Volume 7.6 fL (7.4-10.4); Nucleated Red Blood Cells % 0; Platelet Count 273 10^3/ul (150-450); Red Blood Count 4.23 10^6/ul (4.00-5.40); Red Cell Distribution Width 17 % (10.5-15); White Blood Count 6.8 10^3/ul (3.5-10.8)
[2018-05-27 19:03] LABS: INR 0.89 (0.77-1.02)
[2018-05-27 19:15] LABS: EGFR Non-African American 56.2 (>60)
[2018-05-27] MEDS ORDERED: NS 0.9% 1000 ML* 1,000 ML IV ONE (20:10)
[2018-05-27 20:20] LABS: Urine Appearance Clear; Urine Blood Negative (Negative); Urine Color Yellow; Urine Ketones Negative (Negative); Urine Protein Negative (Negative); Urine Red Blood Cell Trace(0-2/hpf) (Absent); Urine Specific Gravity 1.012 (1.010-1.030); Urine Urobilinogen Negative (Negative); Urine White Blood Cell 1+(6-10/hpf) (Absent)
[2018-05-27] MEDS ORDERED: Cephalexin CAP* 500 MG PO ONE (21:23)
--- NOTE | 2018-05-27 21:24 | ED ---
Syncope/Near Syncope - HPI Summary HPI Summary: Patient complains of lightheadedness, chest pressure, dry mouth, burning with urination, bloated abdomen 2 hours. Denies SOB, fever, cough, sore throat, SANDERSON , neck stiffness, abdominal pain, N/V, change in BM, new medication. Medical history is IBS, HTN, DM 2, GERD, HDL, sciatica, vertigo. Abdominal surgical history is total hysterectomy. - History Of Current Complaint Chief Complaint: EDGeneral Time Seen by Provider: 05/27/18 18:09 Hx Obtained From: Patient Onset/Duration: Gradual Onset Timing: Constant Alleviating Factor(s): Nothing Associated Signs And Symptoms: Chest Pain, Lightheadedness - Allergies/Home Medications Allergies/Adverse Reactions: Allergies Allergy/AdvReac Type Severity Reaction Status Date / Time No Known Allergies Allergy Verified 05/27/18 17:45 PMH/Surg Hx/FS Hx/Imm Hx Endocrine/Hematology History: Reports: Hx Diabetes - type II Denies: Hx Anticoagulant Therapy, Hx Thyroid Disease Cardiovascular History: Reports: Hx Hypercholesterolemia, Hx Hypertension, Other Cardiovascular Problems/Disorders - HYPERCHOLESTEROLEMIA Denies: Hx Angioplasty, Hx Auto Implanted Cardiovert Defib, Hx Cardiac Arrest , Hx Congestive Heart Failure, Hx Coronary Artery Disease, Hx Deep Vein Thrombosis, Hx Pacemaker/ICD Respiratory History: Denies: Hx Asthma, Hx Chronic Obstructive Pulmonary Disease (COPD) GI History: Reports: Hx Gastroesophageal Reflux Disease, Hx Irritable Bowel, Other GI Disorders - IBS History: Denies: Hx Renal Disease Musculoskeletal History: Reports: Hx Back Problems, Other Musculoskeletal History - left hip joint disease Sensory History: Reports: Hx Contacts or Glasses - glasses, Hx Glaucoma Denies: Hx Hearing Aid Opthamlomology History: Reports: Hx Contacts or Glasses - glasses, Hx Glaucoma Neurological History: Reports: Hx Headaches Denies: Hx Dementia, Hx Seizures Psychiatric History: Denies: Hx Panic Disorder, Hx Substance Abuse - Cancer History Hx Chemotherapy: No Hx Radiation Therapy: No - Surgical History Surgery Procedure, Year, and Place: hysterectom 2004. colonoscopy; - Immunization History Date of Tetanus Vaccine: pt unable to recall Date of Influenza Vaccine: pt unable to recall Infectious Disease History: No Infectious Disease History: Denies: Hx Hepatitis, Hx Human Immunodeficiency Virus (HIV), Hx Tuberculosis , Traveled Outside the [place] in Last 30 Days - Family History Known Family History: Positive: Hypertension, Other - Negative for Breast CA - Social History Alcohol Use: None Hx Substance Use: No Substance Use Type: Reports: None Hx Tobacco Use: No Smoking Status (MU): Never Smoked Tobacco Review of Systems Constitutional: Negative Eyes: Negative ENT: Negative Positive: Chest Pain Respiratory: Negative Gastrointestinal: Negative Positive: burning Musculoskeletal: Negative Skin: Negative Neurological: Negative Psychological: Normal All Other Systems Reviewed And Are Negative: Yes Physical Exam - Summary Physical Exam Summary: Abdomen soft nontender. Triage Information Reviewed: Yes Vital Signs On Initial Exam: Initial Vitals Temp Pulse Resp BP Pulse Ox 98.3 F 115 20 130/67 98 05/27/18 17:40 05/27/18 17:40 05/27/18 17:40 05/27/18 17:40 05/27/18 17:40 Vital Signs Reviewed: Yes Appearance: Positive: Well-Appearing Skin: Positive: Warm Head/Face: Positive: Normal Head/Face Inspection Eyes: Positive: Normal ENT: Positive: Normal ENT inspection Neck: Positive: Supple Respiratory/Lung Sounds: Positive: Clear to Auscultation Cardiovascular: Positive: Normal Abdomen Description: Positive: Nontender Musculoskeletal: Positive: Normal Neurological: Positive: Normal Psychiatric: Positive: Normal AVPU Assessment: Alert - Deja Coma Scale Best Eye Response: 4 - Spontaneous Best Motor Response: 6 - Obeys Commands Best Verbal Response: 5 - Oriented Coma Scale Total: 15 Diagnostics - Vital Signs Vital Signs Temp Pulse Resp BP Pulse Ox 05/27/18 19:11 19 139/53 05/27/18 19:00 18 05/27/18 18:42 18 112/62 05/27/18 18:38 109 155/95 05/27/18 18:31 101 155/95 100 05/27/18 18:28 103 125/90 100 05/27/18 18:11 108 125/68 100 05/27/18 18:00 103 100 05/27/18 17:41 113 130/67 98 05/27/18 17:40 98.3 F 114 20 130/67 98 - Laboratory Lab Results: Lab Results 05/27/18 05/27/18 05/27/18 Range/Units 18:38 18:44 18:49 WBC 6.8 (3.5-10.8) 10^3/ul RBC 4.23 (4.00-5.40) 10^6/ul Hgb 11.5 L (12.0-16.0) g/dl Hct 35 (35-47) % MCV 84 (80-97) fL MCH 27 (27-31) pg MCHC 33 (31-36) g/dl RDW 17 H (10.5-15) % Plt Count 273 (150-450) 10^3/ul MPV 7.6 (7.4-10.4) fL Neut % (Auto) 56.4 (38-83) % Lymph % (Auto) 31.6 (25-47) % [place] % (Auto) 8.9 H (0-7) % Eos % (Auto) 2.5 (0-6) % Baso % (Auto) 0.6 (0-2) % Absolute Neuts (auto) 3.8 (1.5-7.7) 10^3/ul Absolute Lymphs (auto) 2.1 (1.0-4.8) 10^3/ul Absolute Monos (auto) 0.6 (0-0.8) 10^3/ul Absolute Eos (auto) 0.2 (0-0.6) 10^3/ul Absolute Basos (auto) 0 (0-0.2) 10^3/ul Absolute Nucleated RBC 0 10^3/ul Nucleated RBC % 0 INR (Anticoag Therapy) (0.77-1.02) VBG pH (7.33-7.43) VBG pCO2 (41-51) mmHg VBG pO2 (35-45) mmHg VBG HCO3 (24-28) mmol/L VBG O2 Saturation (70-80) % VBG Base Excess (0-4) Sodium (135-145) mmol/L Potassium (3.5-5.0) mmol/L Chloride (101-111) mmol/L Carbon Dioxide (22-32) mmol/L Anion Gap (2-11) mmol/L BUN (6-24) mg/dL Creatinine (0.51-0.95) mg/dL Est GFR ( Amer) (>60) Est GFR (Non-Af Amer) (>60) BUN/Creatinine Ratio (8-20) Glucose (70-100) mg/dL Lactic Acid (0.5-2.0) mmol/L Calcium (8.6-10.3) mg/dL Total Bilirubin (0.2-1.0) mg/dL AST (13-39) U/L ALT (7-52) U/L Alkaline Phosphatase (34-104) U/L Troponin I (<0.04) ng/mL C-Reactive Protein (<8.01) mg/L B-Natriuretic Peptide 68 (<=100) pg/mL Total Protein (6.4-8.9) g/dL Albumin (3.2-5.2) g/dL Globulin (2-4) g/dL Albumin/Globulin Ratio (1-3) Lipase (11.0-82.0) U/L TSH (0.34-5.60) mcIU/mL Urine Color Urine Appearance Urine pH (5-9) Ur Specific [place] (1.010-1.030) Urine Protein (Negative) Urine Ketones (Negative) Urine Blood (Negative) Urine Nitrate (Negative) Urine Bilirubin (Negative) Urine Urobilinogen (Negative) Ur Leukocyte Esterase (Negative) Urine WBC (Auto) (Absent) Urine RBC (Auto) (Absent) Ur Squamous Epith Cells (Absent) Urine Bacteria (Absent) Urine Glucose (Negative) Influenza A (Rapid) Negative (Negative) Influenza B (Rapid) Negative (Negative) 05/27/18 05/27/18 05/27/18 Range/Units 18:49 18:49 18:49 WBC (3.5-10.8) 10^3/ul RBC (4.00-5.40) 10^6/ul Hgb (12.0-16.0) g/dl Hct (35-47) % MCV (80-97) fL MCH (27-31) pg MCHC (31-36) g/dl RDW (10.5-15) % Plt Count (150-450) 10^3/ul MPV (7.4-10.4) fL Neut % (Auto) (38-83) % Lymph % (Auto) (25-47) % [place] % (Auto) (0-7) % Eos % (Auto) (0-6) % Baso % (Auto) (0-2) % Absolute Neuts (auto) (1.5-7.7) 10^3/ul Absolute Lymphs (auto) (1.0-4.8) 10^3/ul Absolute Monos (auto) (0-0.8) 10^3/ul Absolute Eos (auto) (0-0.6) 10^3/ul Absolute Basos (auto) (0-0.2) 10^3/ul Absolute Nucleated RBC 10^3/ul Nucleated RBC % INR (Anticoag Therapy) 0.89 (0.77-1.02) VBG pH (7.33-7.43) VBG pCO2 (41-51) mmHg VBG pO2 (35-45) mmHg VBG HCO3 (24-28) mmol/L VBG O2 Saturation (70-80) % VBG Base Excess (0-4) Sodium 140 (135-145) mmol/L Potassium 3.9 (3.5-5.0) mmol/L Chloride 110 (101-111) mmol/L Carbon Dioxide 25 (22-32) mmol/L Anion Gap 5 (2-11) mmol/L BUN 20 (6-24) mg/dL Creatinine 1.00 H (0.51-0.95) mg/dL Est GFR ( Amer) 68.0 (>60) Est GFR (Non-Af Amer) 56.2 (>60) BUN/Creatinine Ratio 20.0 (8-20) Glucose 98 (70-100) mg/dL Lactic Acid 0.9 (0.5-2.0) mmol/L Calcium 9.2 (8.6-10.3) mg/dL Total Bilirubin 0.30 (0.2-1.0) mg/dL AST 17 (13-39) U/L ALT 15 (7-52) U/L Alkaline Phosphatase 73 (34-104) U/L Troponin I 0.00 (<0.04) ng/mL C-Reactive Protein 1.32 (<8.01) mg/L B-Natriuretic Peptide (<=100) pg/mL Total Protein 6.4 (6.4-8.9) g/dL Albumin 3.5 (3.2-5.2) g/dL Globulin 2.9 (2-4) g/dL Albumin/Globulin Ratio 1.2 (1-3) Lipase 37 (11.0-82.0) U/L TSH 0.96 (0.34-5.60) mcIU/mL Urine Color Urine Appearance Urine pH (5-9) Ur Specific Shannon (1.010-1.030) Urine Protein (Negative) Urine Ketones (Negative) Urine Blood (Negative) Urine Nitrate (Negative) Urine Bilirubin (Negative) Urine Urobilinogen (Negative) Ur Leukocyte Esterase (Negative) Urine WBC (Auto) (Absent) Urine RBC (Auto) (Absent) Ur Squamous Epith Cells (Absent) Urine Bacteria (Absent) Urine Glucose (Negative) Influenza A (Rapid) (Negative) Influenza B (Rapid) (Negative) 05/27/18 05/27/18 Range/Units 18:49 20:07 WBC (3.5-10.8) 10^3/ul RBC (4.00-5.40) 10^6/ul Hgb (12.0-16.0) g/dl Hct (35-47) % MCV (80-97) fL MCH (27-31) pg MCHC (31-36) g/dl RDW (10.5-15) % Plt Count (150-450) 10^3/ul MPV (7.4-10.4) fL Neut % (Auto) (38-83) % Lymph % (Auto) (25-47) % [place] % (Auto) (0-7) % Eos % (Auto) (0-6) % Baso % (Auto) (0-2) % Absolute Neuts (auto) (1.5-7.7) 10^3/ul Absolute Lymphs (auto) (1.0-4.8) 10^3/ul Absolute Monos (auto) (0-0.8) 10^3/ul Absolute Eos (auto) (0-0.6) 10^3/ul Absolute Basos (auto) (0-0.2) 10^3/ul Absolute Nucleated RBC 10^3/ul Nucleated RBC % INR (Anticoag Therapy) (0.77-1.02) VBG pH 7.37 (7.33-7.43) VBG pCO2 46 (41-51) mmHg VBG pO2 18 L (35-45) mmHg VBG HCO3 24.0 (24-28) mmol/L VBG O2 Saturation 25.6 L (70-80) % VBG Base Excess 0.9 (0-4) Sodium (135-145) mmol/L Potassium (3.5-5.0) mmol/L Chloride (101-111) mmol/L Carbon Dioxide (22-32) mmol/L Anion Gap (2-11) mmol/L BUN (6-24) mg/dL Creatinine (0.51-0.95) mg/dL Est GFR ( Amer) (>60) Est GFR (Non-Af Amer) (>60) BUN/Creatinine Ratio (8-20) Glucose (70-100) mg/dL Lactic Acid (0.5-2.0) mmol/L Calcium (8.6-10.3) mg/dL Total Bilirubin (0.2-1.0) mg/dL AST (13-39) U/L ALT (7-52) U/L Alkaline Phosphatase (34-104) U/L Troponin I (<0.04) ng/mL C-Reactive Protein (<8.01) mg/L B-Natriuretic Peptide (<=100) pg/mL Total Protein (6.4-8.9) g/dL Albumin (3.2-5.2) g/dL Globulin (2-4) g/dL Albumin/Globulin Ratio (1-3) Lipase (11.0-82.0) U/L TSH (0.34-5.60) mcIU/mL Urine Color Yellow Urine Appearance Clear Urine pH 5.0 (5-9) Ur Specific Shannon 1.012 (1.010-1.030) Urine Protein Negative (Negative) Urine Ketones Negative (Negative) Urine Blood Negative (Negative) Urine Nitrate Negative (Negative) Urine Bilirubin Negative (Negative) Urine Urobilinogen Negative (Negative) Ur Leukocyte Esterase 2+ A (Negative) Urine WBC (Auto) 1+(6-10/hpf) A (Absent) Urine RBC (Auto) Trace(0-2/hpf) (Absent) Ur Squamous Epith Cells Present A (Absent) Urine Bacteria Absent (Absent) Urine Glucose Negative (Negative) Influenza A (Rapid) (Negative) Influenza B (Rapid) (Negative) Result Diagrams: 05/27/18 18:49 05/27/18 18:49 Lab Statement: Any lab studies that have been ordered have been reviewed, and results considered in the medical decision making process. Course/Dx Course Of Treatment: Patient complains of lightheadedness, chest pressure, dry mouth, burning with urination, bloated abdomen 2 hours. Denies SOB, fever, cough, sore throat, SANDERSON, neck stiffness, abdominal pain, N/V, change in BM, new medication. Medical history is IBS, HTN, DM 2, GERD, HDL, sciatica, vertigo. Abdominal surgical history is total hysterectomy. Physical exam unremarkable. EKG normal and same as prior. Chest x-ray unremarkable. Vital signs within normal limits. Labs unremarkable. Abdominal x-ray negative for constipation. Patient positive for UTI. Patient started on Keflex here in the ED. Rx for same - Diagnoses Provider Diagnoses: UTI (urinary tract infection) Discharge - Sign-Out/Discharge Documenting (check all that apply): Patient Departure - Discharge Plan Condition: Stable Disposition: HOME Prescriptions: Cephalexin CAP* [Keflex CAP*] 500 mg PO TID 7 Days #21 cap Patient Education Materials: Urinary Tract Infection in Women (ED) Referrals: Amado Morales MD [Primary Care Provider] - Additional Instructions: Take antibiotics as directed. Follow-up with primary care. Return to ED for any new or worsening symptoms - Billing Disposition and Condition Condition: STABLE Disposition: Home
[2018-05-27 22:59] VITALS: BP 102/55
== END 2018-05-27 22:58 | disposition home or self-care (01) ==
LOC: ED 17:25
DX: N39.0 Urinary tract infection, site not specified (principal); R07.9 Chest pain, unspecified; R42 Dizziness and giddiness; E11.21 Type 2 diabetes mellitus with diabetic nephropathy
CPT/HCPCS: 36415; 71045; 74018; 80053; 81003; 81015; 82803; 83605; 83690; 83880; 84443; 84484; 85025; 85610; 86140; 87077; 87086; 93005; 96360; 99283; A9270-GY

== ENCOUNTER 2018-08-02 05:30 | Emergency (ER) | payer MEDICARE ==
--- OUTSIDE RECORDS SUMMARY | 2018-08-02 05:51 | XMS REPORT | Continuity of Care Document ---
:1955 External Reference #:[id number] Author Name Gigi Stauffer, OD Address [address] [place] [address] Care Team Providers Name Role Phone Carmen MERRILL, Amado Care Team Information Supervisor Winding Department Unavailable Carmen MERRILL, Amado Primary Care Physician Unavailable Payers Type Date Identification Numbers Payment Provider Subscriber Policy Number: [id number] Medicare [facility] Nayeli Melara PayID: [id number] [address] [place] [address] Expires: 2018 Policy Number: [id number] Medicaid [place] Nayeli Negrete Mcbean PayID: [id number] [address] [place] [address] Policy Number: [id number] [facility] Nayeli Negrete Mcbean PayID: [id number] [address] [place] [address] Advance Directives Description No Information Available Problems [...] Patient has never smoked Smoking Status Reviewed: 07/19/18 Patient has never smoked Allergies, Adverse Reactions, Alerts Description No Known Drug Allergies Medications Medication Date Status Form Strength Qnty SIG Indications Ordering Provider Timolol 03/20/ Active Solution 0.5% 5units Instill 1 H40.10x2 Omer Lan 2013 Drop Into Leavitt, Each Eye M.D. Two Times A Day Latanoprost 03/20/ Active Solution 0.005% 2.5uni Instill 1 H40.10x2 Omer 2013 ts Drop In Leavitt, Each Eye M.D. Every Night Atorvastatin // Active Tablets 20mg Unknown Calcium 0000 Januvia / Active Tablets 100mg Carmen MERRILL, 0000 Amado Klor-Con M20 / Active Tablets ER 20Meq Carmen MERRILL, 0000 Amado Losartan / Active Tablets 25mg Carmen MERRILL, Potassium 0000 Amado Nexium / Active Capsules DR 40mg Unknown 0000 Potassium / Active Tablets ER 20Meq Carmen MERRILL, Chloride Ernestine 0000 Amado ER Pioglitazone / Hx Tablets 30mg Carmen MERRILL, HCL Amado 2017 Phenadoz / Hx Suppository 25mg Unknown - 2017 Amitiza / Hx Capsules 24mcg Carmen MERRILL, 0000 - Amado 2017 Sumatriptan / Hx Tablets 25mg Unknown Succinate 2017 Ondansetron / Hx Tablets 4mg Take One Unknown HCL 0000 - Tablet By 2016 Every 6 Hours as Needed For Nausea Immunizations Description No Information Available Vital Signs Date Vital Result Comment 04/19/2018 9:23am Intraocular Pressure Right Eye 17 mmHg Intraocular Pressure Left Eye 17 mmHg 01/17/2018 8:48am Intraocular Pressure Right Eye 14 [...] Information Available Procedures Date Code Description Status 04/19/2018 30935 Visual Field Exam Extended, Unilateral Or Bilateral Completed 04/19/2018 94977 Correct Trichiasis, Epilation By Forceps Only Completed 10/17/2017 03479 Oct, Optic Nerve Completed 10/17/2017 24154 Eye Exam Est Intermediate Completed 07/19/2017 31591 Fundus Photography W/Interpretation & Report Completed 07/19/2017 07398 Refraction Completed 07/19/2017 21909 Eye Exam Est Intermediate Completed 04/19/2017 63965 Eye Exam Est Intermediate Completed 12/21/2016 00393 Visual Field Exam Extended, Unilateral Or Bilateral Completed 12/21/2016 36169 Eye Exam Est Intermediate Completed 09/19/2016 00921 Eye Exam Est Intermediate Completed 09/19/2016 81219 Oct, Optic Nerve Completed 05/19/2016 50086 Fundus Photography W/Interpretation & Report Completed 05/19/2016 36781 Ophthalmoscopy Subsequent Completed 05/19/2016 80558 Refraction Completed 05/19/2016 12542 Eye Exam Est Comprehensive Completed 02/15/2016 16304 Eye Exam Est Intermediate Completed 09/23/2015 05096 Visual Field Exam Extended, Unilateral Or Bilateral Completed 09/23/2015 92173 Eye Exam Est Intermediate Completed 06/05/2015 43091 Oct, Optic Nerve Completed 06/05/2015 40814 Eye Exam Est Intermediate Completed 02/27/2015 67817 Eye Exam Est Intermediate Completed 02/27/2015 82721 Fundus Photography W/Interpretation & Report Completed 11/17/2014 95862 Eye Exam Est Intermediate Completed 08/19/2014 16524 Visual Field Exam Extended, Unilateral Or Bilateral Completed 08/19/2014 85929 Eye Exam Est Intermediate Completed 07/23/2014 31919 Eye Exam Est Intermediate Completed 03/20/2014 07325 Fundus Photography W/Interpretation & Report Completed 03/20/2014 71759 Refraction Completed 03/20/2014 61762 Eye Exam Est Comprehensive Completed 08/24/2011 46884 Visual Field Exam Extended, Unilateral Or Bilateral Completed 08/24/2011 30405 Eye Exam Est Intermediate Completed 12/10/2010 60124 Eye Exam Est Comprehensive Completed 12/10/2010 83466 Ophthalmoscopy Subsequent Completed 12/10/2010 18348 Fundus Photography W/Interpretation & Report Completed 06/09/2010 86412 Visual Field Exam Extended, Unilateral Or Bilateral Completed 06/09/2010 13447 Eye Exam Est Intermediate Completed 05/12/2010 61888 Visual Field Exam Extended, Unilateral Or Bilateral Completed 05/12/2010 02684 Refraction Completed 05/12/2010 20811 Eye Exam Est Intermediate Completed 05/12/2010 42245 Corneal Pachymetry, Unilateral/Bilateral Completed 03/23/2010 53448 Fundus Photography W/Interpretation & Report Completed 03/23/2010 48270 Ophthalmoscopy Initial Completed 03/23/2010 34024 Eye Exam New Comprehensive Completed Encounters Type Date Location Provider Dx Diagnosis Office Visit 04/19/2018 Main Office Gigi Stauffer, OD H40.1132 Primary open-angle 9:00a glaucoma, bilateral, moderate stage H02.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 Angle Unspec Office Visit 03/22/2011 11:30a Main Office Omer Leavitt, 365.10 Glaucoma Open M.D. Angle Unspec Plan of Treatment No Information Available
--- OUTSIDE RECORDS SUMMARY | 2018-08-02 05:51 | XMS REPORT | Continuity of Care Document ---
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 Carmen MERRILL, Amado Primary Care Physician Unavailable Payers Type Date Identification Numbers Payment Provider Subscriber Policy Number: [id number] Medicare [facility] Nayeli Melara PayID: [id number] [address] [place] [address] Expires: 2018 Policy Number: [id number] Medicaid [place] Nayeli Negrete Mcbean PayID: [id number] [address] [place] [address] Policy Number: [id number] [facility] Nayeli Negrete Mcbean PayID: [id number] [address] [place] [address] Advance Directives Description No Information Available Problems Date Description Provider Status Onset: 03/20/2014 Open-angle glaucoma Omer Leavitt M.D. Active Onset: 03/20/2014 Type 2 diabetes mellitus Omer Leavitt M.D. Active Onset: 03/20/2014 Nuclear senile cataract Omer Leaivtt M.D. Active Onset: 07/23/2014 Headache Gigi Tan [...] Available Procedures Date Code Description Status 04/19/2018 71610 Visual Field Exam Extended, Unilateral Or Bilateral Completed 04/19/2018 23202 Correct Trichiasis, Epilation By Forceps Only Completed 10/17/2017 91617 Oct, Optic Nerve Completed 10/17/2017 01435 Eye Exam Est Intermediate Completed 07/19/2017 64423 Fundus Photography W/Interpretation & Report Completed 07/19/2017 91435 Refraction Completed 07/19/2017 49073 Eye Exam Est Intermediate Completed 04/19/2017 81476 Eye Exam Est Intermediate Completed 12/21/2016 47396 Visual Field Exam Extended, Unilateral Or Bilateral Completed 12/21/2016 41215 Eye Exam Est Intermediate Completed 09/19/2016 07848 Eye Exam Est Intermediate Completed 09/19/2016 20448 Oct, Optic Nerve Completed 05/19/2016 11770 Fundus Photography W/Interpretation & Report Completed 05/19/2016 79809 Ophthalmoscopy Subsequent Completed 05/19/2016 47633 Refraction Completed 05/19/2016 17458 Eye Exam Est Comprehensive Completed 02/15/2016 43677 Eye Exam Est Intermediate Completed 09/23/2015 57922 Visual Field Exam Extended, Unilateral Or Bilateral Completed 09/23/2015 05182 Eye Exam Est Intermediate Completed 06/05/2015 01580 Oct, Optic Nerve Completed 06/05/2015 59537 Eye Exam Est Intermediate Completed 02/27/2015 23969 Eye Exam Est Intermediate Completed 02/27/2015 50559 Fundus Photography W/Interpretation & Report Completed 11/17/2014 99787 Eye Exam Est Intermediate Completed 08/19/2014 34930 Visual Field Exam Extended, Unilateral Or Bilateral Completed 08/19/2014 27405 Eye Exam Est Intermediate Completed 07/23/2014 77917 Eye Exam Est Intermediate Completed 03/20/2014 58593 Fundus Photography W/Interpretation & Report Completed 03/20/2014 15108 Refraction Completed 03/20/2014 21683 Eye Exam Est Comprehensive Completed 08/24/2011 50569 Visual Field Exam Extended, Unilateral Or Bilateral Completed 08/24/2011 20708 Eye Exam Est Intermediate Completed 12/10/2010 82468 Eye Exam Est Comprehensive Completed 12/10/2010 76819 Ophthalmoscopy Subsequent Completed 12/10/2010 14226 Fundus Photography W/Interpretation & Report Completed 06/09/2010 28677 Visual Field Exam Extended, Unilateral Or Bilateral Completed 06/09/2010 50997 Eye Exam Est Intermediate Completed 05/12/2010 59226 Visual Field Exam Extended, Unilateral Or Bilateral Completed 05/12/2010 15873 Refraction Completed 05/12/2010 36691 Eye Exam Est Intermediate Completed 05/12/2010 88448 Corneal Pachymetry, Unilateral/Bilateral Completed 03/23/2010 72972 Fundus Photography W/Interpretation & Report Completed 03/23/2010 22557 Ophthalmoscopy Initial Completed 03/23/2010 32120 Eye Exam New Comprehensive Completed Encounters Type [...] Open M.D. Angle Unspec Plan of Treatment 07/19/2018 - Gigi Stauffer, ODE11.9 Type 2 diabetes mellitus without oxalqhelvtiflX10.13 Age-related nuclear cataract, ninkubincP65.1132 Primary open -angle glaucoma, bilateral, moderate stageFollow up:a-scans OU with dr leavitt
--- NOTE | 2018-08-02 06:22 | ED ---
Influenza-Like Illness - HPI Summary HPI Summary: Flu-like sx x 2 days. Subjective fever yesterday with rhinorrhea. SANDERSON today - tried ASA which helped SANDERSON but then developed subjective fever - tried acetaminophen which helped fever. She then felt dizzy with movement which she noticed as she kept getting up to move her bowels - loose stools (typically constipated - takes bentyl and amitiza daily). Little lightheaded and unsteady on her feet this morning during bathroom trips. Has DM and glucose was 83 at home. Here it was 70. Takes oral glucose lowering meds. Has not had anything to eat this morning. Denies ST, ear pain/pressure, sinus pain/pressure, chest pain , SOB, cough, sneezing, rash. No known sick contacts. - History of Current Complaint Chief Complaint: EDGeneral Time Seen by Provider: 08/02/18 05:40 Hx Obtained From: Patient - Allergy/Home Medications Allergies/Adverse Reactions: Allergies Allergy/AdvReac Type Severity Reaction Status Date / Time No Known Allergies Allergy Verified 05/27/18 17:45 PMH/Surg Hx/FS Hx/Imm Hx Previously Healthy: Yes Endocrine/Hematology History: Reports: Hx Diabetes - type II - oral meds Denies: Hx Anticoagulant Therapy, Hx Thyroid Disease Cardiovascular History: Reports: Hx Hypercholesterolemia, Hx Hypertension Denies: Hx Angioplasty, Hx Auto Implanted Cardiovert Defib, Hx Cardiac Arrest , Hx Congestive Heart Failure, Hx Coronary Artery Disease, Hx Deep Vein Thrombosis, Hx Pacemaker/ICD Respiratory History: Denies: Hx Asthma, Hx Chronic Obstructive Pulmonary Disease (COPD) GI History: Reports: Hx Gastroesophageal Reflux Disease, Hx Irritable Bowel - takes bentyl, amitiza, Other GI Disorders - IBS History: Denies: Hx Renal Disease Musculoskeletal History: Reports: Hx Back Problems, Other Musculoskeletal History - left hip joint disease Sensory History: Reports: Hx Contacts or Glasses - glasses, Hx Glaucoma Denies: Hx Hearing Aid Opthamlomology History: Reports: Hx Contacts or Glasses - glasses, Hx Glaucoma Neurological History: Reports: Hx Headaches Denies: Hx Dementia, Hx Seizures Psychiatric History: Denies: Hx Panic Disorder, Hx Substance Abuse - Cancer History Hx Chemotherapy: No Hx Radiation Therapy: No - Surgical History Surgery Procedure, Year, and Place: hysterectom 2004. colonoscopy; - Immunization History Date of Tetanus Vaccine: pt unable to recall Date of Influenza Vaccine: pt unable to recall Infectious Disease History: No Infectious Disease History: Denies: Hx Hepatitis, Hx Human Immunodeficiency Virus (HIV), Hx Tuberculosis , Traveled Outside the [place] in Last 30 Days - Family History Known Family History: Positive: Hypertension, Other - Negative for Breast CA - Social History Lives: Alone - family in town Alcohol Use: None Hx Substance Use: No Substance Use Type: Reports: None Hx Tobacco Use: No Smoking Status (MU): Never Smoked Tobacco Review of Systems Positive: Fever - subjective, Fatigue. Negative: Chills Eyes: Negative Positive: Nasal Discharge Cardiovascular: Negative Respiratory: Negative Gastrointestinal: Other - loose stools Genitourinary: Negative Musculoskeletal: Negative Skin: Negative Positive: Headache - resolved, Weakness - generalized Psychological: Normal All Other Systems Reviewed And Are Negative: Yes Physical Exam Triage Information Reviewed: Yes Vital Signs On Initial Exam: Initial Vitals Temp Pulse Resp BP Pulse Ox 97.8 F 74 17 133/73 98 08/02/18 05:33 08/02/18 05:33 08/02/18 05:33 08/02/18 05:33 08/02/18 05:33 Vital Signs Reviewed: Yes Appearance: Positive: Ill-Appearing - appears older than stated age and mildly fatigued but coherent, answering questions appropriately. Able to mobilize independently and ambulates w/ cane which is baseline, Obese Skin: Positive: Warm, Skin Color Reflects Adequate Perfusion, Dry Head/Face: Positive: Normal Head/Face Inspection Eyes: Positive: Normal, EOMI, YAIR, Conjunctiva Clear. Negative: Conjunctiva Inflammed, Discharge ENT: Positive: Normal ENT inspection, Hearing grossly normal, Pharynx normal, Nasal congestion - mild, TMs normal, Uvula midline. Negative: Pharyngeal erythema, Nasal drainage, Tonsillar swelling, Tonsillar exudate, Trismus, Muffled voice, Sinus tenderness Neck: Positive: Supple, Nontender, No Lymphadenopathy Respiratory/Lung Sounds: Positive: Clear to Auscultation, Breath Sounds Present. Negative: Rales, Rhonchi, Wheezes Cardiovascular: Positive: Normal, RRR, S1, S2. Negative: Murmur, Rub, Leg Edema Left, Leg Edema Right Abdomen Description: Positive: Nontender, No Organomegaly, Soft Bowel Sounds: Positive: Present Musculoskeletal: Positive: Normal, Strength/ROM Intact Neurological: Positive: Normal, Sensory/Motor Intact, Alert, Oriented to Person Place, Time, CN Intact II-III Psychiatric: Positive: Anxious Diagnostics - Vital Signs Vital Signs Temp Pulse Resp BP Pulse Ox 08/02/18 05:36 72 133/73 100 08/02/18 05:35 81 91 08/02/18 05:33 97.8 F 74 17 133/73 98 - Laboratory Lab Results: Lab Results 08/02/18 Range/Units 05:58 Influenza A (Rapid) Negative (Negative) Influenza B (Rapid) Negative (Negative) Result Diagrams: 08/02/18 06:32 08/02/18 06:32 Lab Statement: Any lab studies that have been ordered have been reviewed, and results considered in the medical decision making process. Re-Evaluation - Re-Evaluation First Eval Change: Improved - pt tolerated sandwich and gingerale well - ambulates w/ nursing w/o difficulty Flu Symptom Course/Dx - Course Course Of Treatment: Pt presents w/ SANDERSON, rhinorrhea and feeling weak this morning after a few trips to the bathroom. Her blood glucose was low and she improved w/ a sandwich and gingerale. Tests are normal save for a minimally depleted mag which was replaced orally prior to d/c. Discussed CXR as she has h/ o PNA but she has not sx, chest sounds clear and reports she does not feel like she has PNA so this was not performed. Advised supportive care at home and contacting her family to update them she may need help over the next week with meals, meds, toileting (ie. bedside commode to reduce distance to bathroom, fall risk). Pt agrees w/ plan and will return to ED if she feels worse. Will also monitor DM and proceed w/ meds/meals accordingly. ECG: NSR, 68 bpm, no ST elevations. NOTE: pt notes GI upset comparable to IBS - will f/u w/ GI specialist as she admits she's been struggling w/ bloating, abnormal BM's, etc for a while now - due for colonoscopy this year. - Diagnoses Provider Diagnoses: Viral syndrome Discharge - Sign-Out/Discharge Documenting (check all that apply): Patient Departure - Discharge Plan Condition: Stable Disposition: HOME Patient Education Materials: Viral Syndrome (ED) Referrals: Amado Morales MD [Primary Care Provider] - Additional Instructions: Try the following to support yourself through your illness: Nasal wash (netti pot or saline spray) for nasal congestion & salt water throat gargles 2 x day for sore throat Stay hydrated Sleep 8+ hours per night Avoid Dairy and sugar Hot herbal/decaf tea with lemon & honey Chicken broth (preferably organic, free range chicken) Humidifier in house, but especially near bed at night Keep home temperature at 68F or less to reduce dryness Use cough drops/throat lozenges Try a facial steam with or without eucalyptus essential oil or Michael's Vapor rub for congestion Avoid smoke, candles, perfumes, colognes, scented soaps/detergents , air fresheners and cleaning chemicals as these can cause airway irritation and trigger coughing Contact family to update them about your symptoms as you may need support while working through this as well as a bedside commode if you are feeling uneasy getting to the bathroom - you also agree to continue wearing protective undergarments and take your time transitioning to prevent falling. If symptoms persist, follow-up with PCP. If you feel worse, return to ED NOTE: you also mentioned frustration with your chronic bowel issues - inquire about a gastrointestinal consult through your PCP for further assessment as needed - Billing Disposition and Condition Condition: STABLE Disposition: Home
[2018-08-02 06:44] LABS: ABS Basophils 0 10^3/ul (0-0.2); ABS Eosinophils 0.2 10^3/ul (0-0.6); ABS Monocytes 0.6 10^3/ul (0-0.8); ABS Neutrophils 3.3 10^3/ul (1.5-7.7); ABS Nucleated RBC 0 10^3/ul; Eosinophil % 2.5 %; Hematocrit 35 % (35-47); Hemoglobin 11.5 g/dl (12.0-16.0); Lymphocyte % 33.2 %; Mean Corpuscular HGB Conc 33 g/dl (31-36); Mean Corpuscular Hemoglobin 27 pg (27-31); Mean Corpuscular Volume 83 fL (80-97); Mean Platelet Volume 7.7 fL (7.4-10.4); Nucleated Red Blood Cells % 0.2; Platelet Count 279 10^3/ul (150-450); Red Cell Distribution Width 17 % (10.5-15); White Blood Count 6.1 10^3/ul (3.5-10.8)
[2018-08-02 06:50] LABS: INR 0.87 (0.77-1.02)
[2018-08-02 06:59] LABS: ALT 22 U/L (7-52); AST 19 U/L (13-39); Albumin 3.2 g/dL (3.2-5.2); Albumin/Globulin Ratio 1.1 (1-3); Alkaline Phosphatase 73 U/L (34-104); Anion Gap 6 mmol/L (2-11); BUN/Creatinine Ratio 23.6 (8-20); Blood Urea Nitrogen 17 mg/dL (6-24); C Reactive Protein < 1.00 mg/L (<8.01); CO2 Carbon Dioxide 26 mmol/L (22-32); Chloride 107 mmol/L (101-111); EGFR Non-African American 82.1 (>60); Glucose 91 mg/dL (70-100); Magnesium 1.8 mg/dL (1.9-2.7); Potassium 4.1 mmol/L (3.5-5.0); Sodium 139 mmol/L (135-145); Total Protein 6.2 g/dL (6.4-8.9)
[2018-08-02 07:22] LABS: TSH (Thyroid Stimulating Horm) 2.01 mcIU/mL (0.34-5.60)
[2018-08-02 07:30] LABS: Urine Appearance Clear; Urine Bacteria Absent (Absent); Urine Bilirubin Negative (Negative); Urine Blood 1+ (Negative); Urine Color Straw; Urine Glucose Negative (Negative); Urine Ketones Negative (Negative); Urine Nitrite Negative (Negative); Urine Protein Negative (Negative); Urine Red Blood Cell Absent (Absent); Urine Specific Gravity 1.005 (1.010-1.030); Urine Urobilinogen Negative (Negative); Urine White Blood Cell Trace(0-5/hpf) (Absent)
[2018-08-02] MEDS ORDERED: Magnesium Oxide TAB* 400 MG PO ONE (07:44)
[2018-08-02] MEDS ORDERED: Acetaminophen TAB* 325 MG PO ONE (08:04)
[2018-08-02 08:16] VITALS: BP 135/86
== END 2018-08-02 08:15 | disposition home or self-care (01) ==
LOC: ED 05:30
DX: B34.9 Viral infection, unspecified (principal); R50.9 Fever, unspecified; J34.89 Other specified disorders of nose and nasal sinuses; R51 Headache; R42 Dizziness and giddiness; E11.9 Type 2 diabetes mellitus without complications; Z79.84 Long term (current) use of oral hypoglycemic drugs
CPT/HCPCS: 36415; 80053; 81003; 81015; 83605; 83735; 84443; 85025; 85610; 85730; 86140; 87077; 87086; 93005; 99283; A9270-GY

== ENCOUNTER 2018-09-05 03:16 | Emergency (ER) | payer MEDICARE, MEDICAID ==
--- OUTSIDE RECORDS SUMMARY | 2018-09-05 03:40 | XMS REPORT | Continuity of Care Document ---
:1955 External Reference #:[id number] Author Name Omer Leavitt M.D. Address [address] [place] [address] Care Team Providers Name Role Phone Carmen MERRILL, Amado Care Team Information Cardiac Nurse Specialist Unavailable Carmen MERRILL, Amado Primary Care Physician Unavailable Payers Date Identification Numbers Payment Provider Subscriber Policy Number: [id number] [place]ayeli Melara PayID: [id number] [address] [place] [address] Expires: 2018 Policy Number: [id number] Medicaid [place] Nayeli Melara PayID: [id number] [address] [place] [address] Policy Number: [id number] [facility] Nayeli Melara PayID: [id number] [address] [place] [address] Policy Number: [id number] [place] Nayeli Melara PayID: [id number] [address] [place] [address] Advance Directives Description No Information Available Problems [...] Active stage Family History Date Family Member(s) Observation Comments General Glaucoma General Diabetes General Brother Father Noncontributory Father due to Unknown Causes () Mother Noncontributory Mother due to Unknown Causes () Social History Type Date Description Comments Sex Unknown ETOH Use Denies alcohol use Tobacco Use Start: Unknown Patient has never smoked Smoking Status Reviewed: 09/03/18 Patient has never smoked Allergies, Adverse Reactions, Alerts Description No Known Drug Allergies Medications Medication Date Status Form Strength Qnty SIG Indications Ordering Provider Timolol 03/20 Active Solution 0.5% 5unit Instill 1 H40.10x2 Omer s Drop Into Leavitt, Each Eye Two M.D. Times A Day Latanoprost 03/20 Active Solution 0.005% 2.5un Instill 1 H40.10x2 its Drop In Each Leavitt, Eye Every M.D. Night Atorvastatin Active Tablets 20mg Unknown Calcium /0000 Januvia Active Tablets 100mg Carmen MERRILL, / Amado Klor-Con M20 Active Tablets ER 20Meq Carmen MERRILL, / Amado Losartan Active Tablets 25mg Carmen MERRILL, Potassium / Amado Nexium Active Capsules DR 40mg Unknown /0000 Potassium Active Tablets ER 20Meq Carmen MERRILL, Chloride Ernestine Amado ER Pioglitazone Active Tablets 30mg Take One Unknown HCL /0000 Tablet By Mouth Every Day Dicyclomine Active Capsules 10mg Take One Unknown HCL /0000 Capsule By Mouth Three Times A Day as Needed Ondansetron Active Tablets 4mg Dissolve One Unknown /0000 Dispers Tablet On Tongue Every 8 Hours as Needed For Nausea Phenadoz Active Suppository 25mg Insert One Unknown /0000 Suppository Rectally Four Times A Day as Needed Amitiza Active Capsules 24mcg Take One Unknown /0000 Capsule By Mouth Twice A Day Pioglitazone Hx Tablets 30mg Carmen MERRILL, HCL /0000 Amado - 07/19 Phenadoz Hx Suppository 25mg Unknown /0000 - 07/19 Amitiza Hx Capsules 24mcg Carmen MERRILL, /0000 Amado - 07/19 Sumatriptan Hx Tablets 25mg Unknown Succinate /0000 - 07/19 Ondansetron Hx Tablets 4mg Take One Unknown HCL /0000 Tablet By - Mouth Every 09/19 6 Hours as Needed For Nausea Immunizations Description No Information Available Vital Signs Date Vital Result Comment 09/03/2018 10:17am Intraocular Pressure Right Eye 17 mmHg Intraocular Pressure Left Eye 17 mmHg 07/19/2018 10:57am Intraocular Pressure Right Eye 14 mmHg Intraocular Pressure Left Eye 14 mmHg 04/19/2018 9:23am Intraocular Pressure Right Eye 17 [...] Information Available Procedures Date Code Description Status 09/03/2018 61679 Ophthalmic Biometry By Partial Coherence Interferometry Completed W/Intra 09/03/2018 97151 Eye Exam Est Intermediate Completed 07/19/2018 38041 Fundus Photography W/Interpretation & Report Completed 07/19/2018 07717 Eye Exam Est Intermediate Completed 04/19/2018 63398 Visual Field Exam Extended, Unilateral Or Bilateral Completed 04/19/2018 26214 Correct Trichiasis, Epilation By Forceps Only Completed 10/17/2017 35078 Oct, Optic Nerve Completed 10/17/2017 55328 Eye Exam Est Intermediate Completed 07/19/2017 94292 Fundus Photography W/Interpretation & Report Completed 07/19/2017 65011 Refraction Completed 07/19/2017 31099 Eye Exam Est Intermediate Completed 04/19/2017 89784 Eye Exam Est Intermediate Completed 12/21/2016 78958 Eye Exam Est Intermediate Completed 12/21/2016 04015 Visual Field Exam Extended, Unilateral Or Bilateral Completed 09/19/2016 55636 Oct, Optic Nerve Completed 09/19/2016 61248 Eye Exam Est Intermediate Completed 05/19/2016 32073 Fundus Photography W/Interpretation & Report Completed 05/19/2016 11757 Ophthalmoscopy Subsequent Completed 05/19/2016 00403 Refraction Completed 05/19/2016 86842 Eye Exam Est Comprehensive Completed 02/15/2016 57431 Eye Exam Est Intermediate Completed 09/23/2015 48622 Visual Field Exam Extended, Unilateral Or Bilateral Completed 09/23/2015 56744 Eye Exam Est Intermediate Completed 06/05/2015 53974 Eye Exam Est Intermediate Completed 06/05/2015 88068 Oct, Optic Nerve Completed 02/27/2015 57349 Fundus Photography W/Interpretation & Report Completed 02/27/2015 65147 Eye Exam Est Intermediate Completed 11/17/2014 14252 Eye Exam Est Intermediate Completed 08/19/2014 81099 Visual Field Exam Extended, Unilateral Or Bilateral Completed 08/19/2014 93484 Eye Exam Est Intermediate Completed 07/23/2014 74275 Eye Exam Est Intermediate Completed 03/20/2014 26255 Fundus Photography W/Interpretation & Report Completed 03/20/2014 22369 Refraction Completed 03/20/2014 84084 Eye Exam Est Comprehensive Completed 08/24/2011 44163 Visual Field Exam Extended, Unilateral Or Bilateral Completed 08/24/2011 81836 Eye Exam Est Intermediate Completed 12/10/2010 46479 Eye Exam Est Comprehensive Completed 12/10/2010 31433 Ophthalmoscopy Subsequent Completed 12/10/2010 37312 Fundus Photography W/Interpretation & Report Completed 06/09/2010 51244 Visual Field Exam Extended, Unilateral Or Bilateral Completed 06/09/2010 25479 Eye Exam Est Intermediate Completed 05/12/2010 76676 Visual Field Exam Extended, Unilateral Or Bilateral Completed 05/12/2010 40949 Refraction Completed 05/12/2010 41646 Eye Exam Est Intermediate Completed 05/12/2010 18887 Corneal Pachymetry, Unilateral/Bilateral Completed 03/23/2010 08341 Fundus Photography W/Interpretation & Report Completed 03/23/2010 22503 Ophthalmoscopy Initial Completed 03/23/2010 55500 Eye Exam New Comprehensive Completed Encounters Type [...] Open M.D. Angle Unspec Plan of Treatment 09/03/2018 - Omer Leavitt M.D.H25.13 Age-related nuclear cataract, bilateralComments:Risks, benefits and alternatives to cataract extraction and posterior chamber intraocular lens placement explained, understood and accepted including but not limited to: re-operation, infection, retinal detachment, glaucoma, bleeding in the eye, retained lens material, corneal or macular edema , need for glasses, poor vision and other.Follow up:Schedule patient for the next available cataract surgery date.H40.1112 Primary open-angle glaucoma, right eye, moderate hwiqnX43.1122 Primary open-angle glaucoma, left eye, moderate stage
--- NOTE | 2018-09-05 03:51 | ED ---
Abdominal Pain/Female - HPI Summary HPI Summary: Patient is a 63 y/o F presenting to ED with complaints of diffuse abdominal pain , gas and bloating, nausea, SANDERSON, increased frequency of urination. Abdominal pain onset 229909/04/18. Patient states that she had been having episodes of similar Sx for "a long time" She was supposed to go to GI appointment yesterday but states that she could not due to weather. Patient states she had colonoscopy ten years ago for similar Sx. Patient clams she is due for another. Patient states that she has not been able to sleep due to Sx. PMHx of bursitis, htn, DM, high cholesterol, GERD, IBS, migraines. On triage, pain is rated 10/10, eating is noted to aggravate Sx, nothing is noted to alleviate Sx. Home medications and allergies are reviewed. - History of Current Complaint Chief Complaint: EDAbdPain Stated Complaint: ABD PAIN Time Seen by Provider: 09/05/18 03:36 Hx Obtained From: Patient Onset/Duration: Lasting Hours - 09/04 onset, Still Present Timing: Hours - 09/04 onset Severity Currently: Severe - 10/10 Pain Intensity: 10 Pain Scale Used: 0-10 Numeric - 10/10 Location: Diffuse Aggravating Factor(s): Nothing Alleviating Factor(s): Nothing Associated Signs and Symptoms: Positive: Urinary Symptoms - increased frequency , Nausea, Other: - gas and bloating, SANDERSON Allergies/Adverse Reactions: Allergies Allergy/AdvReac Type Severity Reaction Status Date / Time No Known Allergies Allergy Verified 05/27/18 17:45 PMH/Surg Hx/FS Hx/Imm Hx Endocrine/Hematology History: Reports: Hx Diabetes - type II - oral meds Denies: Hx Anticoagulant Therapy, Hx Thyroid Disease Cardiovascular History: Reports: Hx Hypercholesterolemia, Hx Hypertension, Other Cardiovascular Problems/Disorders - HYPERCHOLESTEROLEMIA Denies: Hx Angioplasty, Hx Auto Implanted Cardiovert Defib, Hx Cardiac Arrest , Hx Congestive Heart Failure, Hx Coronary Artery Disease, Hx Deep Vein Thrombosis, Hx Pacemaker/ICD Respiratory History: Denies: Hx Asthma, Hx Chronic Obstructive Pulmonary Disease (COPD) GI History: Reports: Hx Gastroesophageal Reflux Disease, Hx Irritable Bowel - takes bentyl, amitiza, Other GI Disorders - IBS History: Denies: Hx Renal Disease Musculoskeletal History: Reports: Hx Back Problems, Other Musculoskeletal History - left hip joint disease Sensory History: Reports: Hx Contacts or Glasses - glasses, Hx Glaucoma Denies: Hx Hearing Aid Opthamlomology History: Reports: Hx Contacts or Glasses - glasses, Hx Glaucoma Neurological History: Reports: Hx Headaches Denies: Hx Dementia, Hx Seizures Psychiatric History: Denies: Hx Panic Disorder, Hx Substance Abuse - Cancer History Hx Chemotherapy: No Hx Radiation Therapy: No - Surgical History Surgery Procedure, Year, and Place: hysterectom 2004. colonoscopy; - Immunization History Date of Tetanus Vaccine: pt unable to recall Date of Influenza Vaccine: pt unable to recall Infectious Disease History: No Infectious Disease History: Denies: Hx Hepatitis, Hx Human Immunodeficiency Virus (HIV), Hx Tuberculosis , Traveled Outside the [place] in Last 30 Days - Family History Known Family History: Positive: Hypertension, Other - Negative for Breast CA - Social History Alcohol Use: None Hx Substance Use: No Substance Use Type: Reports: None Hx Tobacco Use: No Smoking Status (MU): Never Smoked Tobacco Review of Systems Gastrointestinal: Other - POSITIVE - GAS AND BLOATING Positive: Abdominal Pain, Nausea Positive: frequency - POSITIVE - INCREASED FREQUENCY OF URINATION Positive: Headache All Other Systems Reviewed And Are Negative: Yes Physical Exam - Summary Physical Exam Summary: VITAL SIGNS: Reviewed. GENERAL: Patient is a well-developed and morbidly obese female who is lying comfortable in the stretcher. Patient is not in any acute respiratory distress. HEAD AND FACE: No signs of trauma. No ecchymosis, hematomas or skull depressions. No sinus tenderness. EYES: PERRLA, EOMI x 2, No injected conjunctiva, no nystagmus. EARS: Hearing grossly intact. Ear canals and tympanic membranes are within normal limits. MOUTH: Oropharynx within normal limits. NECK: Supple, trachea is midline, no adenopathy, no JVD, no carotid bruit, no c- spine tenderness, neck with full ROM. CHEST: Symmetric, no tenderness at palpation LUNGS: Clear to auscultation bilaterally. No wheezing or crackles. CVS: Regular rate and rhythm, S1 and S2 present, no murmurs or gallops appreciated. ABDOMEN: Soft, non-tender. Abdomen is distended. No rebound no guarding, and no masses palpated. Bowel sounds are normal. EXTREMITIES: FROM in all major joints, no edema, no cyanosis or clubbing. NEURO: Alert and oriented x 3. No acute neurological deficits. Speech is normal and follows commands. SKIN: Dry and warm Triage Information Reviewed: Yes Vital Signs On Initial Exam: Initial Vitals Temp Pulse Resp BP Pulse Ox 98.4 F 71 18 147/69 99 09/05/18 03:29 09/05/18 03:29 09/05/18 03:29 09/05/18 03:29 09/05/18 03:29 Vital Signs Reviewed: Yes Diagnostics - Vital Signs Vital Signs Temp Pulse Resp BP Pulse Ox 09/05/18 03:29 98.4 F 71 18 147/69 99 - Laboratory Result Diagrams: 09/05/18 04:00 09/05/18 04:00 Lab Statement: Any lab studies that have been ordered have been reviewed, and results considered in the medical decision making process. - CT abd/pel ct CT Interpretation Completed By: Radiologist Summary of CT Findings: ABD/PEL CT IMPRESSION: 1. No acute findings. 2. Multiple hepatic hemangiomas. THIS REPORT WAS REVIEWED BY ED PHYSICIAN. Re-Evaluation - Re-Evaluation First Eval Re-Evaluation Time: 05:58 Comment: Results of labs and tests were discussed with patient, she will be discharged to home and follow up with PCP and GI. She is agreeable with this. Abdominal Pain Fem Course/Dx - Course Course Of Treatment: Patient is a 63 y/o F presenting to ED with complaints of diffuse abdominal pain, gas and bloating, nausea, SANDERSON, increased frequency of urination. Abdominal pain onset 2300 09/04/18. Patient states that she had been having episodes of similar Sx for "a long time" She was supposed to go to GI appointment yesterday but states that she could not due to weather. Patient states she had colonoscopy ten years ago for similar Sx. Patient clams she is due for another. Patient states that she has not been able to sleep due to Sx. PMHx of bursitis, htn, DM, high cholesterol, GERD, IBS, migraines. On physical exam, patient is noted to be morbidly obese, abdomen is distended. Labs showed Hgb 11.6, MCH 26, RDW 16, APTT 37.7, BUN/creatinine ratio 22.2, glucose 111, magnesium 1.8, amylase 52, lipase 42. During ED course, patient was given fluids and Zofran 8 mg IV ED ONCE ONE. ABD/PEL CT IMPRESSION: 1. No acute findings. 2. Multiple hepatic hemangiomas. Results of labs and tests were discussed with patient, she will be discharged to home and follow up with PCP and GI. She is agreeable with this. - Diagnoses Provider Diagnoses: Abdominal pain Discharge - Sign-Out/Discharge Documenting (check all that apply): Patient Departure - discharge Patient Received Moderate/Deep Sedation with Procedure: No - NO PROCEDURES DONE - Discharge Plan Condition: Stable Disposition: HOME Patient Education Materials: Abdominal Pain (ED) Referrals: Amado Morales MD [Primary Care Provider] - 2 Days Irvin Copeland DO [Doctor of Osteopathy] - 2 Days Additional Instructions: RETURN TO THE EMERGENCY DEPARTMENT FOR CHANGING OR WORSENING SYMPTOMS. FOLLOW UP WITH PRIMARY CARE PHYSICIAN AND GI IN 1-2 DAYS. - Attestation Statements Document Initiated by Scribe: Yes Documenting Scribe: CIELO GASTON Provider For Whom Penge is Documenting (Include Credential): INES HALE MD Scribe Attestation: ICIELO , scribed for INES HALE MD on 09/05/18 at 0612. Status of Scribe Document: Ready
[2018-09-05] MEDS ORDERED: Ondansetron INJ* 2 MG/ML VIAL IV ONE (03:53)
[2018-09-05] MEDS ORDERED: NS 0.9% 1000 ML** 1,000 ML IV SCH (04:00)
[2018-09-05 04:24] LABS: ABS Basophils 0 10^3/ul (0-0.2); ABS Eosinophils 0.2 10^3/ul (0-0.6); ABS Lymphocytes 2.1 10^3/ul (1.0-4.8); ABS Monocytes 0.5 10^3/ul (0-0.8); ABS Neutrophils 2.6 10^3/ul (1.5-7.7); ABS Nucleated RBC 0 10^3/ul; Eosinophil % 3.6 %; Hematocrit 37 % (35-47); Hemoglobin 11.6 g/dl (12.0-16.0); Lymphocyte % 38.6 %; Mean Corpuscular HGB Conc 32 g/dl (31-36); Mean Corpuscular Hemoglobin 26 pg (27-31); Mean Corpuscular Volume 83 fL (80-97); Mean Platelet Volume 7.9 fL (7.4-10.4); Nucleated Red Blood Cells % 0.1; Platelet Count 301 10^3/ul (150-450); Red Blood Count 4.43 10^6/ul (4.00-5.40); Red Cell Distribution Width 16 % (10.5-15); White Blood Count 5.5 10^3/ul (3.5-10.8)
[2018-09-05 04:26] LABS: Activated Partial Thrombo Time 37.7 seconds (26.0-36.3); INR 0.9 (0.77-1.02)
[2018-09-05 04:27] LABS: Albumin 3.8 g/dL (3.2-5.2); Albumin/Globulin Ratio 1.3 (1-3); BUN/Creatinine Ratio 22.2 (8-20); C Reactive Protein 1.38 mg/L (<8.01); Calcium 9.3 mg/dL (8.6-10.3); EGFR African American 99.3 (>60); EGFR Non-African American 82.1 (>60); Magnesium 1.8 mg/dL (1.9-2.7); Potassium 4.1 mmol/L (3.5-5.0); Total Bilirubin 0.4 mg/dL (0.2-1.0); Total Protein 6.8 g/dL (6.4-8.9)
[2018-09-05] MEDS ORDERED: Iodixanol* (CONTRAST) 320 MG/ML 100 ML SDV IV ONE (04:32)
[2018-09-05 06:50] VITALS: BP 106/61
== END 2018-09-05 06:49 | disposition home or self-care (01) ==
LOC: ED 03:16
DX: R10.84 Generalized abdominal pain (principal); D18.09 Hemangioma of other sites; R35.0 Frequency of micturition; R11.0 Nausea; R14.0 Abdominal distension (gaseous); R51 Headache; E11.9 Type 2 diabetes mellitus without complications; Z79.84 Long term (current) use of oral hypoglycemic drugs; K58.9 Irritable bowel syndrome, unspecified; Z90.710 Acquired absence of both cervix and uterus
CPT/HCPCS: 36415; 74177; 80053; 82150; 83690; 83735; 85025; 85610; 85730; 86140; 96361; 96374; 99283; J2405; Q9967

== ENCOUNTER 2018-09-25 13:06 | Day surgery (SDC) | payer MEDICARE, MEDICAID ==
[~2018-09-25 13:06] MED LIST changes: +Acetaminophen TAB* 325 MG PO PRN; +Buffered Lidocaine 1% SYRIN* 1 ML/SYRINGE INTRADERM ONE; -Cyclobenzaprine TAB* 10 MG PO ONE; +Cyclopentolate 1% OPTH.SOL* 2 ML BTL ONE; +Ketorolac 0.5% OPHTH (NF) 0.5 % 5 ML BTL ONE; -Ketorolac INJ* 60 MG/2 ML VIAL IM ONE; +Lidocaine 1%* 5 ML VIAL ONE; +Neomycin/Polymy/Dex OPHTH.OIN* 3.5 GM ONE; +Tetracaine 0.5% OPTH.SOL 4 ML* 1 DROP BTL ONE; +Tropicamide 1% OPTH.SOL* BTL ONE; -oxyCODONE/Acetamin 5/325 MG* TAB PO ONE
[2018-09-25] MEDS ORDERED: Midazolam* 1 MG/ML 2 ML VIAL (2 MG) ONE (14:25)
[2018-09-25] MEDS ORDERED: fentaNYL* 50 MCG/ML 2 ML VIAL (100 MCG VIAL) ONE (14:51)
[2018-09-25] MEDS ORDERED: Phenylephr/Ketorolac 1%/0.3% OPH DROP BTL ONE (15:18)
[2018-09-25 15:26] VITALS: BP 129/58
--- NOTE | 2018-09-25 21:52 | OP ---
DATE OF OPERATION: 09/25/18 - [facility] DATE OF : 57 SURGEON: Dr. Omer Leavitt. SUPERVISOR WEAVING: None. ANESTHESIA: Topical with intravenous sedation. PRE-OP DIAGNOSIS: Cataract and glaucoma, right eye. POST-OP DIAGNOSIS: Cataract and glaucoma, right eye. OPERATIVE PROCEDURE: Phacoemulsification and cataract extraction with posterior chamber intraocular lens implant and iStent implant, right eye. COMPLICATIONS: None. BLOOD LOSS: None. DESCRIPTION OF PROCEDURE: The patient was brought to the operating room and received intravenous sedation. A drop of Tetracaine was placed into her right eye. The patient was prepped and draped in the usual sterile fashion for ophthalmic surgery and attention was directed to the right eye where a speculum was placed. A paracentesis was created at the 11 o'clock position and 0.1 cc of 1% preservative- free lidocaine was injected into the anterior chamber followed by DisCoVisc. The eye was digitally stabilized while a 2.75 mm keratome was used to create a triplanar clear corneal incision at the 9 o'clock position. A continuous curvilinear capsulorrhexis was created with a cystotome and Utrata forceps. BSS on a cannula was used to hydrodissect the lens from the capsule. Phacoemulsification was performed in a [id number] technique to create 4 fragments which were removed. Residual cortical material was removed with irrigation and aspiration. DisCoVisc was used to inflate the capsular bag and an [id number] 20.5 diopter lens was inserted into the capsular bag. Supplemental DisCoVisc was used to deepen the anterior chamber and coat the surface of the cornea. The head of the patient was rotated away from the surgeon and the microscope was rotated towards the surgeon. A gonioprism was placed in the surface of the eye. An iStent on its movie editor was introduced into the anterior chamber. Under direct visualization, the iStent was introduced into the medial trabecular mesh work. It was inserted and the gonioprism removed. The head and the microscope were returned to a neutral position. DisCoVisc was removed from the eye using irrigation and aspiration. BSS on a cannula was used to hydrate the corneal stroma and seal the wound. At the end of the case, the pupil was round and the lens was centered. The eye pressure appeared normal and the wound was water tight. The speculum was removed and topical Maxitrol ointment was placed on the surface of the eye. The eye was closed, patched and shielded and the patient was sent to the recovery room in stable condition with postop instructions and followup appointment given. [id number]/CPS #: [id number] MTDD
== END 2018-09-25 15:50 | disposition home or self-care (01) ==
LOC: OREAST 13:06
PROVIDERS: ATTEND Ophthalmology
DX: H25.11 Age-related nuclear cataract, right eye (principal); H40.10X1 Unspecified open-angle glaucoma, mild stage; E11.9 Type 2 diabetes mellitus without complications; Z79.84 Long term (current) use of oral hypoglycemic drugs; K21.9 Gastro-esophageal reflux disease without esophagitis; M19.90 Unspecified osteoarthritis, unspecified site; K58.2 Mixed irritable bowel syndrome; J31.2 Chronic pharyngitis
CPT/HCPCS: A9270-GY; C1783; C9447; J2250; J3010; V2632

== ENCOUNTER 2018-09-29 18:06 | Emergency (ER) | payer MEDICARE, MEDICAID ==
[2018-09-29] MEDS ORDERED: Ondansetron INJ* 2 MG/ML VIAL IV ONE (18:34)
[2018-09-29] MEDS ORDERED: NS 0.9% 1000 ML** 1,000 ML IV ONE (18:34)
[2018-09-29] MEDS ORDERED: Dicyclomine CAP* 10 MG PO ONE (18:38)
--- OUTSIDE RECORDS SUMMARY | 2018-09-29 18:40 | XMS REPORT | Continuity of Care Document ---
:1955 External Reference #:[id number] Author Name Omer Leavitt M.D. Address [address] [place] [address] Care Team Providers Name Role Phone Carmen MERRILL, Amado Care Team Information Night Supervisor Unavailable Carmen MERRILL, Amado Primary Care Physician Unavailable Payers Date Identification Numbers Payment Provider Subscriber Policy Number: [id number] [place]ayeli Melara PayID: [id number] [address] [place] [address] Expires: 2018 Policy Number: [id number] Medicaid [place] Nayeli Melara PayID: [id number] [address] [place] [address] Policy Number: [id number] [facility] Nayeli Melara PayID: [id number] [address] [place] [address] Policy Number: [id number] Medicaid [place] Nayeli Melara PayID: [id number] [address] [place] [address] Advance Directives Description No Information Available Problems [...] Patient has never smoked Smoking Status Reviewed: 09/26/18 Patient has never smoked Allergies, Adverse Reactions, Alerts Description No Known Drug Allergies Medications Medication Date Status Form Strength Qnty SIG Indications Ordering Provider Vigamox 09/12 Active Solution 0.5% 3ml 1 drop right eye four Leavitt, times a day, M.D. start drops the morning of surgery Ketorolac 09/12 Active Solution 0.5% 5ml 1 right eye Tromethamine twice a day Leavitt, M.D. Pred Forte 09/12 Active Suspension 1% 10ml 1 drops right eye Leavitt, four times a M.D. day Timolol 03/20 Active Solution 0.5% 5unit Instill 1 H40.10x2 Male s Drop Into Leavitt, Each Eye Two M.D. Times A Day Latanoprost 03/20 Active Solution 0.005% 2.5un Instill 1 H40.10x2 its Drop In Each Leavitt, Eye Every M.D. Night Atorvastatin Active Tablets 20mg Unknown Calcium /0000 Januvia Active Tablets 100mg Carmen MERRILL, /0000 Amado Klor-Con M20 Active Tablets ER 20Meq Carmen MERRILL, / Amado Losartan Active Tablets 25mg Carmen MERRILL, Potassium / Amado Nexium Active Capsules DR 40mg Unknown /0000 Potassium Active Tablets ER 20Meq Carmen MERRILL, Chloride Ernestine / Amado ER Pioglitazone Active Tablets 30mg Take [...] By - Mouth Every 09/19 6 Hours Needed For Nausea Immunizations Description No Information Available Vital Signs Date Vital Result Comment 09/26/2018 9:40am Intraocular Pressure Right Eye 15 mmHg 09/03/2018 10:17am Intraocular Pressure Right Eye 17 [...] Intraocular Pressure Left Eye 14 mmHg Results Test Date Facility Test Result H/L Range Note Laboratory test 09/25/2018 [facility] Point of Care 95 mg/dL N 70-[address] [place] [address] [phone] 1 Loss Prevention Leader: [id number] Procedures Date Code Description Status 09/03/2018 71247 Ophthalmic Biometry By Partial Coherence Interferometry Completed W/Intra 09/03/2018 73656 Eye Exam Est Intermediate Completed 07/19/2018 06963 Fundus Photography W/Interpretation & Report Completed 07/19/2018 80708 Eye Exam Est Intermediate Completed 04/19/2018 93114 Visual Field Exam Extended, Unilateral Or Bilateral Completed 04/19/2018 15653 Correct Trichiasis, Epilation By Forceps Only Completed 10/17/2017 33505 Oct, Optic Nerve Completed 10/17/2017 34022 Eye Exam Est Intermediate Completed 07/19/2017 10957 Fundus Photography W/Interpretation & Report Completed 07/19/2017 95791 Refraction Completed 07/19/2017 09402 Eye Exam Est Intermediate Completed 04/19/2017 13782 Eye Exam Est Intermediate Completed 12/21/2016 71456 Eye Exam Est Intermediate Completed 12/21/2016 72358 Visual Field Exam Extended, Unilateral Or Bilateral Completed 09/19/2016 06666 Oct, Optic Nerve Completed 09/19/2016 62599 Eye Exam Est Intermediate Completed 05/19/2016 13702 Fundus Photography W/Interpretation & Report Completed 05/19/2016 05662 Ophthalmoscopy Subsequent Completed 05/19/2016 42716 Refraction Completed 05/19/2016 82116 Eye Exam Est Comprehensive Completed 02/15/2016 23413 Eye Exam Est Intermediate Completed 09/23/2015 05908 Visual Field Exam Extended, Unilateral Or Bilateral Completed 09/23/2015 66399 Eye Exam Est Intermediate Completed 06/05/2015 07697 Eye Exam Est Intermediate Completed 06/05/2015 76781 Oct, Optic Nerve Completed 02/27/2015 66074 Fundus Photography W/Interpretation & Report Completed 02/27/2015 22199 Eye Exam Est Intermediate Completed 11/17/2014 60289 Eye Exam Est Intermediate Completed 08/19/2014 02259 Visual Field Exam Extended, Unilateral Or Bilateral Completed 08/19/2014 11601 Eye Exam Est Intermediate Completed 07/23/2014 66008 Eye Exam Est Intermediate Completed 03/20/2014 82116 Fundus Photography W/Interpretation & Report Completed 03/20/2014 26570 Refraction Completed 03/20/2014 52752 Eye Exam Est Comprehensive Completed 08/24/2011 69151 Visual Field Exam Extended, Unilateral Or Bilateral Completed 08/24/2011 57101 Eye Exam Est Intermediate Completed 12/10/2010 92961 Eye Exam Est Comprehensive Completed 12/10/2010 38597 Ophthalmoscopy Subsequent Completed 12/10/2010 50045 Fundus Photography W/Interpretation & Report Completed 06/09/2010 45879 Visual Field Exam Extended, Unilateral Or Bilateral Completed 06/09/2010 28136 Eye Exam Est Intermediate Completed 05/12/2010 18261 Visual Field Exam Extended, Unilateral Or Bilateral Completed 05/12/2010 05742 Refraction Completed 05/12/2010 31895 Eye Exam Est Intermediate Completed 05/12/2010 13399 Corneal Pachymetry, Unilateral/Bilateral Completed 03/23/2010 81734 Fundus Photography W/Interpretation & Report Completed 03/23/2010 72481 Ophthalmoscopy Initial Completed 03/23/2010 78277 Eye Exam New Comprehensive Completed Encounters Type [...] Open M.D. Angle Unspec Plan of Treatment Future Appointment(s):11/09/2018 10:00 am - Gigi Stauffer [facility] [id number] 11:00 am - Gigi Stauffer [facility] Kiwqez7410/03/2018 9:30 am - Omer Leavitt M.D. at [facility] Roacpz7410/02/2018 10:25 am - Omer Leavitt M.D. at [facility] [id number]/26/2018 - Omer Leavitt M.D.Z48.89 Encounter for other specified surgical aftercareComments:The patient was seen post-operatively one day following surgery. The patient was advised that the eye tolerated the surgery well without complications. Patient was given eye drop schedule and implant card.The patient was told to wear an eye shield QHS for one week and sunglasses daily. The patient was also advised to contact us immediately if new symptoms or visual changes are noted such as pain, worsening redness, flashes, floaters or decrease in vision.Follow up:The patient is to return in one week to follow up after cataract surgery and sooner if needed.
[2018-09-29 18:46] LABS: ABS Basophils 0 10^3/ul (0-0.2); ABS Eosinophils 0.1 10^3/ul (0-0.6); ABS Lymphocytes 0.7 10^3/ul (1.0-4.8); ABS Monocytes 0.6 10^3/ul (0-0.8); ABS Neutrophils 4.3 10^3/ul (1.5-7.7); ABS Nucleated RBC 0 10^3/ul; Eosinophil % 2.6 %; Hematocrit 36 % (35-47); Hemoglobin 11.6 g/dl (12.0-16.0); Lymphocyte % 12.4 %; Mean Corpuscular HGB Conc 33 g/dl (31-36); Mean Corpuscular Hemoglobin 27 pg (27-31); Mean Corpuscular Volume 84 fL (80-97); Mean Platelet Volume 7.7 fL (7.4-10.4); Nucleated Red Blood Cells % 0; Platelet Count 262 10^3/ul (150-450); Red Blood Count 4.29 10^6/ul (4.00-5.40); Red Cell Distribution Width 17 % (10.5-15); White Blood Count 5.7 10^3/ul (3.5-10.8)
[2018-09-29 19:02] LABS: Albumin 3.7 g/dL (3.2-5.2); Albumin/Globulin Ratio 1.3 (1-3); BUN/Creatinine Ratio 20.3 (8-20); C Reactive Protein 1.47 mg/L (<8.01); Calcium 9.1 mg/dL (8.6-10.3); EGFR African American 89.2 (>60); EGFR Non-African American 73.7 (>60); Globulin 2.8 g/dL (2-4); Potassium 4.1 mmol/L (3.5-5.0); Total Bilirubin 0.4 mg/dL (0.2-1.0); Total Protein 6.5 g/dL (6.4-8.9)
[2018-09-29 19:37] LABS: Urine Appearance Clear; Urine Bacteria Absent (Absent); Urine Bilirubin Negative (Negative); Urine Blood Negative (Negative); Urine Color Straw; Urine Glucose Negative (Negative); Urine Ketones Negative (Negative); Urine Nitrite Negative (Negative); Urine Protein Negative (Negative); Urine Red Blood Cell Trace(0-2/hpf) (Absent); Urine Specific Gravity 1.009 (1.010-1.030); Urine Squamous Epithelial Cell Present (Absent); Urine Urobilinogen Negative (Negative); Urine White Blood Cell Trace(0-5/hpf) (Absent)
--- NOTE | 2018-09-29 19:44 | ED ---
Abdominal Pain/Female - HPI Summary HPI Summary: Patient complains of her usual chronic diffuse abdominal pain described as cramping and bloating, nausea as well as cough and subjective fever starting last night. Denies SANDERSON, sore throat, CP, SOB, V/D, change in urine, vaginal symptoms. Medical history is DM 2, HTN, IBS, GERD, glaucoma, constipation. Patient seen here for same symptoms with negative CT abdomen and pelvis. Patient states she is awaiting colonoscopy, which was delayed due to eye cataract surgery. - History of Current Complaint Chief Complaint: EDAbdPain Stated Complaint: "ABD PAIN" PER EMS Time Seen by Provider: 09/29/18 18:20 Hx Obtained From: Patient Onset/Duration: Lasting Weeks Timing: Intermittent Episode Lasting Severity Initially: Severe Severity Currently: Severe Pain Intensity: 10 Pain Scale Used: 0-10 Numeric Location: Diffuse Radiates: No Character: Cramping Aggravating Factor(s): Nothing Alleviating Factor(s): Nothing Associated Signs and Symptoms: Positive: Fever, Cough, Nausea Allergies/Adverse Reactions: Allergies Allergy/AdvReac Type Severity Reaction Status Date / Time No Known Allergies Allergy Verified 09/25/18 13:39 PMH/Surg Hx/FS Hx/Imm Hx Endocrine/Hematology History: Reports: Hx Diabetes - type II - oral meds Denies: Hx Anticoagulant Therapy, Hx Thyroid Disease Cardiovascular History: Reports: Hx Hypercholesterolemia, Hx Hypertension, Other Cardiovascular Problems/Disorders - HYPERCHOLESTEROLEMIA Denies: Hx Angioplasty, Hx Auto Implanted Cardiovert Defib, Hx Cardiac Arrest , Hx Congestive Heart Failure, Hx Coronary Artery Disease, Hx Deep Vein Thrombosis, Hx Pacemaker/ICD Respiratory History: Denies: Hx Asthma, Hx Chronic Obstructive Pulmonary Disease (COPD) GI History: Reports: Hx Gastroesophageal Reflux Disease, Hx Irritable Bowel - takes bentyl, amitiza, Hx Jaundice - when very young, Other GI Disorders - IBS History: Denies: Hx Renal Disease Musculoskeletal History: Reports: Hx Arthritis - osteoarthritis, Hx Back Problems, Hx Bursitis, Other Musculoskeletal History - left hip joint disease Sensory History: Reports: Hx Cataracts - both eyes, Hx Contacts or Glasses - glasses, Hx Glaucoma Denies: Hx Hearing Aid Opthamlomology History: Reports: Hx Cataracts - both eyes, Hx Contacts or Glasses - glasses, Hx Glaucoma Neurological History: Reports: Hx Headaches, Hx Migraine, Other Neuro Impairments/Disorders - vertigo Denies: Hx Dementia, Hx Seizures Psychiatric History: Reports: Hx Anxiety - about heights Denies: Hx Panic Disorder, Hx Substance Abuse - Cancer History Hx Chemotherapy: No Hx Radiation Therapy: No - Surgical History Surgery Procedure, Year, and Place: hysterectom 2004. colonoscopy; Hx Anesthesia Reactions: No - Immunization History Date of Tetanus Vaccine: pt unable to recall Date of Influenza Vaccine: pt unable to recall Infectious Disease History: No Infectious Disease History: Denies: Hx Hepatitis, Hx Human Immunodeficiency Virus (HIV), Hx Tuberculosis , Traveled Outside the [place] in Last 30 Days - Family History Known Family History: Positive: Hypertension, Other - Negative for Breast CA - Social History Alcohol Use: None Hx Substance Use: No Substance Use Type: Reports: None Hx Tobacco Use: No Smoking Status (MU): Never Smoked Tobacco Review of Systems Positive: Fever Eyes: Negative ENT: Negative Cardiovascular: Negative Positive: Cough Positive: Abdominal Pain, Nausea Genitourinary: Negative Musculoskeletal: Negative Skin: Negative Neurological: Negative Psychological: Normal All Other Systems Reviewed And Are Negative: Yes Physical Exam - Summary Physical Exam Summary: Patient does not react to abdominal exam while talking to right of way worker, but afterwards states 10 out of 10 abdominal pain. Lung sounds are clear to auscultation bilaterally. RRR. Triage Information Reviewed: Yes Vital Signs On Initial Exam: Initial Vitals Temp Pulse Resp BP Pulse Ox 98.0 F 88 14 138/80 99 09/29/18 18:12 09/29/18 18:12 09/29/18 18:12 09/29/18 18:12 09/29/18 18:12 Vital Signs Reviewed: Yes Appearance: Positive: Well-Appearing Skin: Positive: Warm Head/Face: Positive: Normal Head/Face Inspection Eyes: Positive: Normal Neck: Positive: Supple Respiratory/Lung Sounds: Positive: Clear to Auscultation Cardiovascular: Positive: Normal Abdomen Description: Positive: Nontender Musculoskeletal: Positive: Normal Neurological: Positive: Normal Psychiatric: Positive: Normal AVPU Assessment: Alert - [place] Coma Scale Best Eye Response: 4 - Spontaneous Best Motor Response: 6 - Obeys Commands Best Verbal Response: 5 - Oriented Coma Scale Total: 15 Diagnostics - Vital Signs Vital Signs Temp Pulse Resp BP Pulse Ox 09/29/18 19:12 80 17 99 09/29/18 18:54 79 10 109/56 99 09/29/18 18:25 79 25 107/76 98 09/29/18 18:23 79 15 97 09/29/18 18:12 98.0 F 88 14 138/80 99 - Laboratory Lab Results: Lab Results 09/29/18 09/29/18 09/29/18 Range/Units 18:38 18:38 19:21 WBC 5.7 (3.5-10.8) 10^3/ul RBC 4.29 (4.00-5.40) 10^6/ul Hgb 11.6 L (12.0-16.0) g/dl Hct 36 (35-47) % MCV 84 (80-97) fL MCH 27 (27-31) pg MCHC 33 (31-36) g/dl RDW 17 H (10.5-15) % Plt Count 262 (150-450) 10^3/ul MPV 7.7 (7.4-10.4) fL Neut % (Auto) 75.2 % Lymph % (Auto) 12.4 % Darke % (Auto) 9.6 % Eos % (Auto) 2.6 % Baso % (Auto) 0.2 % Absolute Neuts (auto) 4.3 (1.5-7.7) 10^3/ul Absolute Lymphs (auto) 0.7 L (1.0-4.8) 10^3/ul Absolute Monos (auto) 0.6 (0-0.8) 10^3/ul Absolute Eos (auto) 0.1 (0-0.6) 10^3/ul Absolute Basos (auto) 0 (0-0.2) 10^3/ul Absolute Nucleated RBC 0 10^3/ul Nucleated RBC % 0 Sodium 138 (135-145) mmol/L Potassium 4.1 (3.5-5.0) mmol/L Chloride 107 (101-111) mmol/L Carbon Dioxide 25 (22-32) mmol/L Anion Gap 6 (2-11) mmol/L BUN 16 (6-24) mg/dL Creatinine 0.79 (0.51-0.95) mg/dL Est GFR ( Amer) 89.2 (>60) Est GFR (Non-Af Amer) 73.7 (>60) BUN/Creatinine Ratio 20.3 H (8-20) Glucose 101 H (70-100) mg/dL Calcium 9.1 (8.6-10.3) mg/dL Total Bilirubin 0.40 (0.2-1.0) mg/dL AST 19 (13-39) U/L ALT 18 (7-52) U/L Alkaline Phosphatase 78 (34-104) U/L C-Reactive Protein 1.47 (<8.01) mg/L Total Protein 6.5 (6.4-8.9) g/dL Albumin 3.7 (3.2-5.2) g/dL Globulin 2.8 (2-4) g/dL Albumin/Globulin Ratio 1.3 (1-3) Lipase 36 (11.0-82.0) U/L Urine Color Straw Urine Appearance Clear Urine pH 6.0 (5-9) Ur Specific [place] 1.009 L (1.010-1.030) Urine Protein Negative (Negative) Urine Ketones Negative (Negative) Urine Blood Negative (Negative) Urine Nitrate Negative (Negative) Urine Bilirubin Negative (Negative) Urine Urobilinogen Negative (Negative) Ur Leukocyte Esterase Trace A (Negative) Urine WBC (Auto) Trace(0-5/hpf) (Absent) Urine RBC (Auto) Trace(0-2/hpf) (Absent) Ur Squamous Epith Cells Present A (Absent) Urine Bacteria Absent (Absent) Urine Glucose Negative (Negative) Result Diagrams: 09/29/18 18:38 09/29/18 18:38 Lab Statement: Any lab studies that have been ordered have been reviewed, and results considered in the medical decision making process. Abdominal Pain Fem Course/Dx - Course Course Of Treatment: Patient complains of her usual chronic diffuse abdominal pain described as cramping and bloating, nausea as well as cough and subjective fever starting last night. Denies SANDERSON, sore throat, CP, SOB, V/D, change in urine, vaginal symptoms. Medical history is DM 2, HTN, IBS, GERD, glaucoma, constipation. Patient seen here for same symptoms with negative CT abdomen and pelvis. Patient states she is awaiting colonoscopy, which was delayed due to eye cataract surgery. Physical exam:Patient does not react to abdominal exam while talking to right of way worker, but afterwards states 10 out of 10 abdominal pain. Lung sounds are clear to auscultation bilaterally. RRR. Vital signs within normal limits. Labs unremarkable. Urine unremarkable. Flu negative. Chest x-ray unremarkable. - Diagnoses Provider Diagnoses: Chronic generalized abdominal pain, Cough Discharge - Sign-Out/Discharge Documenting (check all that apply): Patient Departure Patient Received Moderate/Deep Sedation with Procedure: No - Discharge Plan Condition: Stable Disposition: HOME Prescriptions: Ondansetron ODT TAB* [Zofran 4 MG Odt TAB*] 4 mg PO Q8H PRN 4 Days #14 tab.odt PRN Reason: Nausea Patient Education Materials: Upper Respiratory Infection (ED), Chronic Abdominal Pain (ED) Referrals: Genesis Louise MD [Primary Care Provider] - Omer Ca MD [Medical Doctor] - Additional Instructions: Follow-up with primary care and GI Dr. Ca for further evaluation of chronic abdominal pain. Return to the ED for any new or worsening symptoms. - Billing Disposition and Condition Condition: STABLE Disposition: Home
[2018-09-29 20:36] LABS: Influenza A Molecular NEGATIVE (Negative); Influenza B Molecular NEGATIVE (Negative)
[2018-09-29 21:06] VITALS: BP 117/67
== END 2018-09-29 21:10 | disposition home or self-care (01) ==
LOC: ED 18:06
DX: R10.84 Generalized abdominal pain (principal); R05 Cough; R11.0 Nausea; R50.9 Fever, unspecified; E11.9 Type 2 diabetes mellitus without complications; Z79.84 Long term (current) use of oral hypoglycemic drugs; I10 Essential (primary) hypertension; E78.00 Pure hypercholesterolemia, unspecified
CPT/HCPCS: 36415; 71046; 80053; 81003; 81015; 83690; 85025; 86140; 87086; 96361; 96374; 99283; A9270-GY; J2405

== ENCOUNTER 2018-10-02 09:35 | Day surgery (SDC) | payer MEDICARE, MEDICAID ==
[~2018-10-02 09:35] MED LIST changes: -Cyclopentolate 1% OPTH.SOL* 2 ML BTL ONE; -Ketorolac 0.5% OPHTH (NF) 0.5 % 5 ML BTL ONE; -Lidocaine 1%* 5 ML VIAL ONE; -Neomycin/Polymy/Dex OPHTH.OIN* 3.5 GM ONE; -Tetracaine 0.5% OPTH.SOL 4 ML* 1 DROP BTL ONE; -Tropicamide 1% OPTH.SOL* BTL ONE
[2018-10-02] MEDS ORDERED: Midazolam* 1 MG/ML 5 ML VIAL (5 MG) ONE (10:05)
[2018-10-02] MEDS ORDERED: fentaNYL* 50 MCG/ML 2 ML VIAL (100 MCG VIAL) ONE (10:05)
[2018-10-02 12:05] VITALS: BP 126/70
[2018-10-02] MEDS ORDERED: Neomycin/Polymy/Dex OPHTH.OIN* 3.5 GM ONE (13:22)
[2018-10-02] MEDS ORDERED: Ketorolac 0.5% OPHTH (NF) 0.5 % 5 ML BTL ONE (13:22)
[2018-10-02] MEDS ORDERED: Phenylephrine OPHTH SOL 2.5%* 2 ML ONE (13:22)
[2018-10-02] MEDS ORDERED: Cyclopentolate 1% OPTH.SOL* 2 ML BTL ONE (13:22)
[2018-10-02] MEDS ORDERED: Lidocaine 1%* 5 ML VIAL ONE (13:22)
[2018-10-02] MEDS ORDERED: Tetracaine 0.5% OPTH.SOL 4 ML* 1 DROP BTL ONE (13:22)
[2018-10-02] MEDS ORDERED: Tropicamide 1% OPTH.SOL* BTL ONE (13:22)
--- NOTE | 2018-10-02 13:57 | OP ---
DATE OF OPERATION: 10/02/18 - [place] [facility] DATE OF : 57 SURGEON: Omer Leavitt MD GRAIN LOADER: None. ANESTHESIA: Topical with intravenous sedation. PRE-OP DIAGNOSIS: Cataract and glaucoma, left eye. POST-OP DIAGNOSIS: Cataract and glaucoma, left eye. OPERATIVE PROCEDURE: Phacoemulsification and cataract extraction with posterior chamber intraocular lens implant and iStent implant, left eye. COMPLICATIONS: None. BLOOD LOSS: None. DESCRIPTION OF PROCEDURE: The patient was brought to the operating room and received intravenous sedation. A drop of tetracaine was placed in her left eye. The patient was prepped and draped in the usual sterile fashion for ophthalmic surgery and attention was directed to the left eye where a speculum was placed. A paracentesis was created at the 5 o'clock position and 0.1 cc of 1% preservative- free Lidocaine was injected into the anterior chamber followed by DisCoVisc. The eye was digitally stabilized. A 2.75 mm keratome was used to create a triplanar clear corneal incision at the 3 o'clock position. A continuous curvilinear capsulorrhexis was created with a cystotome and Utrata forceps. BSS on a cannula was used to hydrodissect the lens from the capsule. Phacoemulsification was performed in a [id number]-[id number] technique to create 4 fragments which were removed. Residual cortical material was removed with irrigation and aspiration. DisCoVisc was used to inflate the capsular bag. An [id number] 21.5 diopter lens was inserted into the capsular bag. Supplemental DisCoVisc was used to deepen the anterior chamber and coat the surface of the cornea. The patient's head was rotated away from the surgeon and the microscope was rotated towards the surgeon. A gonioprism was placed in the surface of the eye. An iStent on its injector was introduced into the anterior chamber. Under direct visualization, the iStent was inserted into the nasal trabecular meshwork. The iStent inserted and the gonioprism was removed. The patient's head and the microscope were returned to a neutral position. Irrigation and aspiration were performed, removed viscoelastic from the eye. BSS on a cannula was used to hydrate the corneal stroma and seal the wound. At the end of the case, the pupil was round and the lens was centered. The iStent was in good place. The eye pressure appeared normal and the wound was watertight. The speculum was removed and topical Maxitrol ointment was placed on the surface of the eye. The eye was closed, patched and shielded and the patient was sent to the recovery room in stable condition with postop instructions and followup appointment given. [id number]/CPS #: [id number] MTDD
== END 2018-10-03 22:00 | disposition home or self-care (01) ==
LOC: OREAST 09:35
PROVIDERS: ATTEND Ophthalmology
DX: H25.12 Age-related nuclear cataract, left eye (principal); H40.1121 Primary open-angle glaucoma, left eye, mild stage; I10 Essential (primary) hypertension; E78.5 Hyperlipidemia, unspecified; E11.9 Type 2 diabetes mellitus without complications; Z79.84 Long term (current) use of oral hypoglycemic drugs; K58.9 Irritable bowel syndrome, unspecified; F41.9 Anxiety disorder, unspecified
CPT/HCPCS: 36415; 71046; 80053; 85025; 86140; 87651; 99283; A9270-GY; C1783; J2250; J3010; V2632

== ENCOUNTER 2018-10-02 20:27 | Emergency (ER) | payer MEDICARE, MEDICAID ==
--- NOTE | 2018-10-02 23:51 | ED ---
Throat Pain/Nasal Congestion - HPI Summary HPI Summary: Patient complains of productive cough, loss of voice, sore throat, subjective fever, nasal congestion 3 days. Denies SANDERSON, neck stiffness, facial pressure, ear pain, CP, SOB, N/V/D, abdominal pain, change in urine, change in BM. No antipyretics taken since this morning. - History of Current Complaint Chief Complaint: EDGeneral Time Seen by Provider: 10/02/18 23:31 Hx Obtained From: Patient Onset/Duration: Gradual Onset, Lasting Days Severity: Moderate Associated Signs And Symptoms: Positive: Dysphagia, Hoarseness, Nasal Discharge Cough: Productive - Allergies/Home Medications Allergies/Adverse Reactions: Allergies Allergy/AdvReac Type Severity Reaction Status Date / Time No Known Allergies Allergy Verified 10/02/18 20:39 PMH/Surg Hx/FS Hx/Imm Hx Endocrine/Hematology History: Reports: Hx Diabetes - type II - oral meds Denies: Hx Anticoagulant Therapy, Hx Thyroid Disease Cardiovascular History: Reports: Hx Hypercholesterolemia, Hx Hypertension, Other Cardiovascular Problems/Disorders - HYPERCHOLESTEROLEMIA Denies: Hx Angioplasty, Hx Auto Implanted Cardiovert Defib, Hx Cardiac Arrest , Hx Congestive Heart Failure, Hx Coronary Artery Disease, Hx Deep Vein Thrombosis, Hx Pacemaker/ICD Respiratory History: Denies: Hx Asthma, Hx Chronic Obstructive Pulmonary Disease (COPD) GI History: Reports: Hx Gastroesophageal Reflux Disease, Hx Irritable Bowel - takes bentyl, amitiza, Hx Jaundice - when very young, Other GI Disorders - IBS History: Denies: Hx Renal Disease Musculoskeletal History: Reports: Hx Arthritis - osteoarthritis, Hx Back Problems, Hx Bursitis, Other Musculoskeletal History - left hip joint disease Sensory History: Reports: Hx Cataracts - both eyes, Hx Contacts or Glasses - glasses, Hx Glaucoma Denies: Hx Hearing Aid Opthamlomology History: Reports: Hx Cataracts - both eyes, Hx Contacts or Glasses - glasses, Hx Glaucoma Neurological History: Reports: Hx Headaches, Hx Migraine, Other Neuro Impairments/Disorders - vertigo Denies: Hx Dementia, Hx Seizures Psychiatric History: Reports: Hx Anxiety - about heights Denies: Hx Panic Disorder, Hx Substance Abuse - Cancer History Hx Chemotherapy: No Hx Radiation Therapy: No - Surgical History Surgery Procedure, Year, and Place: hysterectom 2004. colonoscopy; Hx Anesthesia Reactions: No - Immunization History Date of Tetanus Vaccine: pt unable to recall Date of Influenza Vaccine: pt unable to recall Infectious Disease History: No Infectious Disease History: Denies: Hx Hepatitis, Hx Human Immunodeficiency Virus (HIV), Hx Tuberculosis , Traveled Outside the [place] in Last 30 Days - Family History Known Family History: Positive: Hypertension, Other - Negative for Breast CA - Social History Alcohol Use: None Hx Substance Use: No Substance Use Type: Reports: None Hx Tobacco Use: No Smoking Status (MU): Never Smoked Tobacco Review of Systems Positive: Fever Eyes: Negative Positive: Sore Throat, Nasal Discharge Cardiovascular: Negative Positive: Cough Gastrointestinal: Negative Genitourinary: Negative Musculoskeletal: Negative Skin: Negative Neurological: Negative Psychological: Normal All Other Systems Reviewed And Are Negative: Yes Physical Exam Triage Information Reviewed: Yes Vital Signs On Initial Exam: Initial Vitals Temp Pulse Resp BP Pulse Ox 98.0 F 98 16 142/91 97 10/02/18 20:35 10/02/18 20:35 10/02/18 20:35 10/02/18 20:35 10/02/18 20:35 Vital Signs Reviewed: Yes Appearance: Positive: Well-Appearing Skin: Positive: Warm Head/Face: Positive: Normal Head/Face Inspection Eyes: Positive: Normal ENT: Positive: Pharyngeal erythema, Nasal congestion, TMs normal, Muffled voice , Hoarse voice, Uvula midline. Negative: Tonsillar swelling, Tonsillar exudate , Trismus, Sinus tenderness Neck: Positive: Supple Respiratory/Lung Sounds: Positive: Clear to Auscultation Cardiovascular: Positive: Normal Abdomen Description: Positive: Nontender Musculoskeletal: Positive: Normal Neurological: Positive: Normal Psychiatric: Positive: Normal AVPU Assessment: Alert - [place] Coma Scale Best Eye Response: 4 - Spontaneous Best Motor Response: 6 - Obeys Commands Best Verbal Response: 5 - Oriented Coma Scale Total: 15 Diagnostics - Vital Signs Vital Signs Temp Pulse Resp BP Pulse Ox 10/02/18 22:37 98.1 F 76 16 139/74 98 10/02/18 20:35 98.0 F 98 16 142/91 97 - Laboratory Lab Results: Lab Results 10/02/18 Range/Units 23:29 Group A Strep Rapid Negative (Negative) Result Diagrams: 10/02/18 23:50 10/02/18 23:50 Lab Statement: Any lab studies that have been ordered have been reviewed, and results considered in the medical decision making process. EENT Course/Dx - Course Course Of Treatment: Patient complains of productive cough, loss of voice, sore throat, subjective fever, nasal congestion 3 days. Denies SANDERSON, neck stiffness, facial pressure, ear pain, CP, SOB, N/V/D, abdominal pain, change in urine, change in BM. No antipyretics taken since this morning. Vital signs within normal limits. Strep negative. Chest x-ray negative. Labs unremarkable. Recommend alternating Tylenol and ibuprofen every 3 hours. Discussed lidocaine for sore throat pain. - Diagnoses Provider Diagnoses: Respiratory infection Discharge - Sign-Out/Discharge Documenting (check all that apply): Patient Departure Patient Received Moderate/Deep Sedation with Procedure: No - Discharge Plan Condition: Stable Disposition: HOME Patient Education Materials: Upper Respiratory Infection (ED) Referrals: Genesis Louise MD [Primary Care Provider] - - Billing Disposition and Condition Condition: STABLE Disposition: Home
[2018-10-02 23:58] LABS: ABS Basophils 0 10^3/ul (0-0.2); ABS Eosinophils 0 10^3/ul (0-0.6); ABS Lymphocytes 1.4 10^3/ul (1.0-4.8); ABS Monocytes 0.5 10^3/ul (0-0.8); ABS Neutrophils 3.9 10^3/ul (1.5-7.7); ABS Nucleated RBC 0 10^3/ul; Eosinophil % 0.2 %; Hematocrit 39 % (35-47); Hemoglobin 12.5 g/dl (12.0-16.0); Lymphocyte % 24.3 %; Mean Corpuscular HGB Conc 32 g/dl (31-36); Mean Corpuscular Hemoglobin 27 pg (27-31); Mean Corpuscular Volume 83 fL (80-97); Mean Platelet Volume 7.7 fL (7.4-10.4); Nucleated Red Blood Cells % 0.2; Platelet Count 234 10^3/ul (150-450); Red Blood Count 4.68 10^6/ul (4.00-5.40); Red Cell Distribution Width 16 % (10.5-15); White Blood Count 5.8 10^3/ul (3.5-10.8)
[2018-10-03 00:12] LABS: Albumin 3.6 g/dL (3.2-5.2); Albumin/Globulin Ratio 1.2 (1-3); BUN/Creatinine Ratio 12.7 (8-20); C Reactive Protein 23.45 mg/L (<8.01); Calcium 8.7 mg/dL (8.6-10.3); EGFR African American 89.2 (>60); EGFR Non-African American 73.7 (>60); Potassium 4.2 mmol/L (3.5-5.0); Total Bilirubin 0.2 mg/dL (0.2-1.0); Total Protein 6.6 g/dL (6.4-8.9)
[2018-10-03] MEDS ORDERED: Lidocaine 2% VISCOUS* 15 ML UDC PO ONE (00:33)
[2018-10-03] MEDS ORDERED: Azithromycin TAB* 250 MG PO ONE (00:36)
[2018-10-03 01:03] VITALS: BP 147/96
== END 2018-10-03 01:05 | disposition home or self-care (01) ==
LOC: ED 20:27
DX: J98.8 Other specified respiratory disorders (principal); R05 Cough; J02.9 Acute pharyngitis, unspecified; E11.9 Type 2 diabetes mellitus without complications; Z79.84 Long term (current) use of oral hypoglycemic drugs; I10 Essential (primary) hypertension; K21.9 Gastro-esophageal reflux disease without esophagitis
CPT/HCPCS: 36415; 71046; 80053; 85025; 86140; 87651; 99283; A9270-GY

== ENCOUNTER 2018-10-09 11:26 | Emergency (ER) | payer MEDICARE, MEDICAID ==
--- OUTSIDE RECORDS SUMMARY | 2018-10-09 11:43 | XMS REPORT | Continuity of Care Document ---
:1955 External Reference #:[id number] Author Name Gigi Stauffer, OD Address [address] [place] [address] Care Team Providers Name Role Phone Carmen MERRILL, Amado Care Team Information Bread Molder Unavailable Carmen MERRILL, Amado Primary Care Physician Unavailable Payers Date Identification Numbers Payment Provider Subscriber Policy Number: [id number] [place] Nayeli Melara PayID: [id number] [address] [place] [address] Expires: 2018 Policy Number: [id number] Medicaid [place] Nayeli Melara PayID: [id number] [address] [place] [address] Policy Number: [id number] [facility] Nayeli Melara PayID: [id number] [address] [place] [address] Policy Number: [id number] Medicaid [place] Nayeli Melara PayID: [id number] [address] [place] [address] Advance Directives Description No Information Available Problems [...] Patient has never smoked Smoking Status Reviewed: 10/09/18 Patient has never smoked Allergies, Adverse Reactions, Alerts Description No Known Drug Allergies Medications Medication Date Status Form Strength Qnty SIG Indications Ordering Provider Ketorolac 09/12 Active Solution 0.5% 5ml 1 drops left Trometh eye twice a Leavitt, day M.D. Pred Forte 09/12 Active Suspension 1% 10ml 1 drops left eye four Leavitt, times a day M.D. Timolol 03/20 Active Solution 0.5% 5unit Instill 1 H40.10x2 Male s Drop Into Leavitt, Each Eye Two M.D. Times A Day Latanoprost 03/20 Active Solution 0.005% 2.5un Instill 1 H40.10x2 its Drop In Each Leavitt, Eye Every M.D. Night Atorvastatin Active Tablets 20mg Unknown Calcium /0000 Januvia Active Tablets 100mg Carmen MERRILL, /0000 Amado Klor-Con M20 Active Tablets ER 20Meq Carmen MERRILL, /0000 Amado Losartan Active Tablets 25mg Carmen MERRILL, Potassium /0000 Amado Nexium Active Capsules DR 40mg Unknown /0000 Potassium Active Tablets ER 20Meq Carmen MERRILL, Chloride Ernestine /0000 Amado ER Pioglitazone Active Tablets 30mg Take [...] /0000 Capsule By Mouth Twice A Day Vigamox 09/12 Hx Solution 0.5% 9ml 1 drop drops left eye Leavitt, - four times a M.D. Pioglitazone Hx Tablets 30mg Carmen MERRILL, HCL /0000 Amado - 07/19 Phenadoz 00/ Hx Suppository 25mg Unknown /0000 - 07/19 Amitiza / Hx Capsules 24mcg Carmen MERRILL, /0000 Amado - 07/19 Sumatriptan Hx Tablets 25mg Unknown Succinate /0000 - 07/19 Ondansetron Hx Tablets 4mg Take One Unknown HCL /0000 Tablet By - Mouth Every 09/19 6 Hours Needed For Nausea Immunizations Description No Information Available Vital Signs Date Vital Result Comment 10/03/2018 9:19am Intraocular Pressure Right Eye 11 mmHg Intraocular Pressure Left Eye 13 mmHg 09/26/2018 9:40am Intraocular Pressure Right Eye 15 [...] Test Result H/L Range Note Laboratory test 10/02/2018 [facility] Point of Care 131 mg/dL High 70-[address] [place] [address] [phone] Laboratory test 09/25/2018 [facility] Point of Care 95 mg/dL N 70-100 [address] [place] [address] [phone] Weigher Bulker: [id number] Weigher Bulker: [id number] Procedures Date Code Description Status 09/25/2018 00684 Extracapsular Cataract Extraction W/Intraocular Lens Completed 09/25/2018 0191T Insertion Of Anterior Segment Aqueous Drainage Device Completed 09/03/2018 25011 Ophthalmic Biometry By Partial Coherence Interferometry Completed W/Intra 09/03/2018 29589 Eye Exam Est Intermediate Completed 07/19/2018 32521 Fundus Photography W/Interpretation & Report Completed 07/19/2018 11445 Eye Exam Est Intermediate Completed 04/19/2018 80885 Visual Field Exam Extended, Unilateral Or Bilateral Completed 04/19/2018 27333 Correct Trichiasis, Epilation By Forceps Only Completed 10/17/2017 30554 Oct, Optic Nerve Completed 10/17/2017 94958 Eye Exam Est Intermediate Completed 07/19/2017 21557 Fundus Photography W/Interpretation & Report Completed 07/19/2017 92673 Refraction Completed 07/19/2017 08457 Eye Exam Est Intermediate Completed 04/19/2017 03740 Eye Exam Est Intermediate Completed 12/21/2016 74173 Visual Field Exam Extended, Unilateral Or Bilateral Completed 12/21/2016 38646 Eye Exam Est Intermediate Completed 09/19/2016 73402 Oct, Optic Nerve Completed 09/19/2016 69849 Eye Exam Est Intermediate Completed 05/19/2016 66999 Fundus Photography W/Interpretation & Report Completed 05/19/2016 15199 Ophthalmoscopy Subsequent Completed 05/19/2016 06680 Refraction Completed 05/19/2016 56784 Eye Exam Est Comprehensive Completed 02/15/2016 25777 Eye Exam Est Intermediate Completed 09/23/2015 22661 Visual Field Exam Extended, Unilateral Or Bilateral Completed 09/23/2015 54464 Eye Exam Est Intermediate Completed 06/05/2015 67377 Eye Exam Est Intermediate Completed 06/05/2015 11169 Oct, Optic Nerve Completed 02/27/2015 60484 Fundus Photography W/Interpretation & Report Completed 02/27/2015 78469 Eye Exam Est Intermediate Completed 11/17/2014 46055 Eye Exam Est Intermediate Completed 08/19/2014 55484 Visual Field Exam Extended, Unilateral Or Bilateral Completed 08/19/2014 85748 Eye Exam Est Intermediate Completed 07/23/2014 53203 Eye Exam Est Intermediate Completed 03/20/2014 87955 Fundus Photography W/Interpretation & Report Completed 03/20/2014 34183 Refraction Completed 03/20/2014 69821 Eye Exam Est Comprehensive Completed 08/24/2011 09637 Visual Field Exam Extended, Unilateral Or Bilateral Completed 08/24/2011 85851 Eye Exam Est Intermediate Completed 12/10/2010 44327 Eye Exam Est Comprehensive Completed 12/10/2010 94909 Ophthalmoscopy Subsequent Completed 12/10/2010 66175 Fundus Photography W/Interpretation & Report Completed 06/09/2010 74838 Visual Field Exam Extended, Unilateral Or Bilateral Completed 06/09/2010 13672 Eye Exam Est Intermediate Completed 05/12/2010 60978 Visual Field Exam Extended, Unilateral Or Bilateral Completed 05/12/2010 57066 Refraction Completed 05/12/2010 02483 Eye Exam Est Intermediate Completed 05/12/2010 66764 Corneal Pachymetry, Unilateral/Bilateral Completed 03/23/2010 56500 Fundus Photography W/Interpretation & Report Completed 03/23/2010 24885 Ophthalmoscopy Initial Completed 03/23/2010 06674 Eye Exam New Comprehensive Completed Encounters Type [...] Treatment Future Appointment(s):11/09/2018 10:00 am - Gigi Stauffer, OD at [id number] - Gigi Stauffer, [id number] Primary open-angle glaucoma, bilateral, moderate [id number] Presence of intraocular lens
[2018-10-09 11:53] VITALS: BP 128/78
--- NOTE | 2018-10-09 12:16 | UC ---
UC General HPI - HPI Summary HPI Summary: Here for abdominal pain. Patient with chronic abdominal pain and IBS who has been in and out of ER and PCP for pain and URI illness. States she just finished an antibiotic for her throat and still taking and antibiotic for her ear. Productive cough has persisted. No SOB or CP. Abdominal pain is lower abdominal pain. Developed cramping during the night and took an amitiza at 4 am and then began with loose stools this morning. Was prescribed hyoscyamine but it is not covered. States she needs a new med to cover her until she gets a colonoscopy which is not yet scheduled. Is scheduled to see Dr. Ca on . States she gets a subjective fever everyday for the past few days and take tylenol. Did not take tylenol today. +Nausea. No vomiting. Meds; Reviewed but patient not clear on all her meds. - History of Current Complaint Chief Complaint: UCGeneralIllness Stated Complaint: STOMACH PAIN Time Seen by Provider: 10/09/18 11:57 Pain Intensity: 6 - Allergy/Home Medications Allergies/Adverse Reactions: Allergies Allergy/AdvReac Type Severity Reaction Status Date / Time hyoscyamine [From Levsin] Allergy Itching Verified 10/09/18 11:54 lisinopril Allergy Rash Verified 10/09/18 11:54 Home Medications: Home Medications Acetaminophen [Tylophen] 500 mg PO Q4HR PRN 10/09/18 [History Confirmed 10/09/18 ] Amoxicillin/Clavulanate TAB* [Augmentin TAB 875*] 1 tab PO BID 10/09/18 [ History Confirmed 10/09/18] Aspirin/Acetaminophen/Caffeine [Excedrin Migraine Caplet] 1 tab PO ONCE PRN [History Confirmed 10/09/18] Calcium Carbonate [Calcium/C/D] 2 chw PO DAILY 10/09/18 [History Confirmed 10/09] Cold-Hot Pack [Thermacare] 1 applic TOPICAL TID PRN 10/09/18 [History Confirmed 10/09/18] Fluticasone NASAL SPRAY 50MCG* [Flonase NASAL SPRAY 50MCG*] 1 spray INH BID PRN 10/09/18 [History Confirmed 10/09/18] Hyoscyamine Sulfate 0.125 mg PO Q4HR PRN 10/09/18 [History Confirmed 10/09/18] LORazepam [Lorazepam] 0.5 mg PO BID 10/09/18 [History Confirmed 10/09/18] Loratadine 10 mg PO DAILY 10/09/18 [History Confirmed 10/09/18] Nabumetone 750 mg PO BID 10/09/18 [History Confirmed 10/09/18] Simethicone [Gas Relief] 80 mg PO BID 10/09/18 [History Confirmed 10/09/18] Triamcinolone 0.1% CREAM (NF) [Kenalog 0.1% Cream (NF)] 1 applic TOPICAL DAILY 10/09/18 [History Confirmed 10/09/18] PMH/Surg Hx/FS Hx/Imm Hx Endocrine History: Diabetes Cardiovascular History: Hypertension GI/ History: Other - IBS Other History Of: Negative For: Anticoagulant Therapy - Surgical History Surgical History: Yes Surgery Procedure, Year, and Place: hysterectom 2004. colonoscopy; - Family History Known Family History: Positive: Hypertension, Other - Negative for Breast CA - Social History Alcohol Use: None Substance Use Type: None Smoking Status (MU): Never Smoked Tobacco Review of Systems All Other Systems Reviewed And Are Negative: Yes Constitutional: Positive: Fever ENT: Positive: Sinus Congestion Respiratory: Positive: Cough Gastrointestinal: Positive: Abdominal Pain, Nausea Physical Exam Triage Information Reviewed: Yes Appearance: Well-Appearing Vital Signs: Initial Vital Signs Temp 96.9 F 10/09/18 11:45 Pulse 111 10/09/18 11:45 Resp 18 10/09/18 11:45 BP 128/78 10/09/18 11:45 Pulse Ox 98 10/09/18 11:45 Vital Signs Reviewed: Yes ENT: Positive: Pharynx normal, Nasal congestion, Other - TM right ear - dull, NO bulging or erythema TM left: Normal Dental Exam: Normal Neck exam: Normal Neck: Positive: Supple, Nontender Respiratory: Positive: Lungs clear, Normal breath sounds Cardiovascular: Positive: No Murmur, Tachycardia Abdomen Description: Positive: Soft, Other: - morbidly obese, suprapubic tenderness. No rebound or guarding Bowel Sounds: Positive: Present Diagnostics - Radiology CXR Radiology Interpretation Completed By: Radiologist - Hyperinflation, consistent with COPD. No active cardiopulmonary disease Course/Dx - Course Course Of Treatment: This is a 63 yr old with chronic abdominal pain and IBS who presents with worsening abdominal pain Assessment Benign abdominal exam CXR: No acute finding U/A: +1 ketones, no glucose, No pyuria Dx: IBS Recommend CXR was negative and you do not have a urinary tract infection COntinue to drink plenty of fluids. Stick to a bland, soft diet. Follow up with rn referral to discuss alternative medicine for your IBS that is covered by your insurance and to follow up as scheduled your apt. with Dr. Ca Discontinue antibiotics as this may be contributing to your abdominal pain Cough and congestion appear to be viral and no further antibiotics are warranted If symptoms persist or worsen, call your primary for further evaluation or return to urgent care or the ER - Diagnoses Provider Diagnosis: Irritable bowel syndrome Discharge - Sign-Out/Discharge Documenting (check all that apply): Patient Departure All imaging exams completed and their final reports reviewed: Yes - Discharge Plan Condition: Fair Disposition: HOME Referrals: Genesis Louise MD [Primary Care Provider] - Additional Instructions: CXR was negative and you do not have a urinary tract infection COntinue to drink plenty of fluids. Stick to a bland, soft diet. Follow up with rn referral to discuss alternative medicine for your IBS that is covered by your insurance and to follow up as scheduled your apt. with Dr. Ca Discontinue antibiotics as this may be contributing to your abdominal pain Cough and congestion appear to be viral and no further antibiotics are warranted If symptoms persist or worsen, call your primary for further evaluation or return to urgent care or the ER Recommend follow up with your PCP in the next 5-7 days - Billing Disposition and Condition Condition: FAIR Disposition: Home
== END 2018-10-09 13:09 | disposition home or self-care (01) ==
LOC: UCEAST 11:26
DX: K58.9 Irritable bowel syndrome, unspecified (principal); E11.9 Type 2 diabetes mellitus without complications; I10 Essential (primary) hypertension; R05 Cough; R11.0 Nausea; G89.29 Other chronic pain; Z79.82 Long term (current) use of aspirin
CPT/HCPCS: 71046; 81003; 99212; G0463

== ENCOUNTER 2018-11-19 21:12 | Emergency (ER) | payer MEDICARE, OTHER ==
--- OUTSIDE RECORDS SUMMARY | 2018-11-19 21:26 | XMS REPORT | Continuity of Care Document ---
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 Carmen MERRILL, Amado Primary Care Physician Unavailable Payers Date Identification Numbers Payment Provider Subscriber Policy Number: [id number] Medicare [place] Nayeli Melara PayID: [id number] [address] [place] [address] Expires: 2018 Policy Number: [id number] Medicaid [place] Nayeli Melara PayID: [id number] [address] [place] [address] Policy Number: [id number] [employer] Nayeli Melara PayID: [id number] [address] [place] [address] Policy Number: [id number] Medicaid [place] Nayeli Mel[place] PayID: [id number] [address] [place] [address] Advance Directives Description No Information Available Problems Active Problems Provider Date Open-angle glaucoma Omer Leavitt M.D. Onset: 03/20/2014 Type 2 diabetes mellitus Omer Leavitt M.D. Onset: 03/20/2014 Nuclear senile cataract Omer Leavitt M.D. Onset: 03/20/2014 Headache Gigi Tan O.D. Onset: 07/23/2014 Primary open-angle glaucoma, severe stage Omer Leavitt M.D. Onset: 2014 Primary open-angle glaucoma, moderate stage Omer Leavitt M.D. Onset: 09/22 Family History Date Family Member(s) Observation Comments General Glaucoma General Diabetes General Brother Father Noncontributory Father due to Unknown Causes () Mother Noncontributory Mother due to Unknown Causes () Social History Type Date Description Comments Sex Unknown ETOH Use Denies alcohol use Tobacco Use Start: Unknown Patient has never smoked Smoking Status Reviewed: 11/12/18 Patient has never smoked Allergies, Adverse Reactions, Alerts Description No Known Drug Allergies Medications Active Medications SIG Qnty Indications Ordering Date Provider Refresh P.M. 1/4" ribbon 3.500gm Omer Leavitt, 10/16/2018 applied to ocular M.D. Ointment surface every night at bedtime both eyes Timolol Maleate Instill 1 Drop 5units H40.10x2 Omer Leavitt, 03/20/2014 0.5% Into Each Eye Two M.D. Solution Times A Day Latanoprost Instill 1 Drop In 2.5units H40.10x2 Omer Leavitt, 03/20/2014 0.005% Each Eye Every M.D. Solution Night Amitiza Take One Capsule Unknown 24mcg By Mouth Twice A Capsules Day Phenadoz Insert One Unknown 25mg Suppository Suppository Rectally Four Times A Day as Needed Ondansetron Dissolve One Unknown 4mg Tablet On Tongue Tablets Dispers Every 8 Hours as Needed For Nausea Dicyclomine HCL Take One Capsule Unknown 10mg By Mouth Three Capsules Times A Day as Needed Pioglitazone HCL Take One Tablet By Unknown 30mg Mouth Every Day Tablets Potassium Chloride Carmen MERRILL, Ernestine ER Amado 20Meq Tablets ER Nexium Unknown 40mg Capsules DR Kenan Morales MD, Amado 25mg Tablets Klor-Con M20 Carmen MERRILL, 20Meq Amado Tablets ER Fany Morales MD, 100mg Tablets Amado Atorvastatin Calcium Unknown 20mg Tablets History Medications Vigamox 1 drop drops 9ml Omer Leavitt, 09/12/2018 - 0.5% Solution left eye four M.D. 10/09/2018 times a day Ketorolac Tromethamine 1 drops left eye 5ml Omer Leavitt, 09/12/2018 - 0.5% twice a day M.D. 11/12/2018 Solution Pred Forte 1 drops left eye 10ml Omer Leavitt, 09/12/2018 - 1% Suspension four times a day M.D. 11/12/2018 Pioglitazone HCL Carmen MERRILL, Amado - 30mg 07/19/2018 Tablets Phenadoz Unknown - 25mg Suppository 07/19/2018 Tuyet Morales MD, Amado - 24mcg Capsules 07/19/2018 Sumatriptan Succinate Unknown - 25mg 07/19/2018 Tablets Ondansetron HCL Take One Tablet Unknown - 4mg Tablets By Mouth Every 6 09/19/2016 Hours as Needed For Nausea Immunizations Description No Information Available Vital Signs Date Vital Result Comment 10/16/2018 10:14am Intraocular Pressure Right Eye 19 mmHg Intraocular Pressure Left Eye 19 mmHg Cornea Thickness Left Eye 474 m Cornea Thickness Right Eye 478 m Pachymetry adjusted IOP Right Eye +5 Pachymetry adjusted IOP Left Eye +4 10/09/2018 12:45pm Intraocular Pressure Right Eye 13 mmHg Intraocular Pressure Left Eye 13 mmHg 10/03/2018 9:19am Intraocular Pressure Right Eye 11 [...] Result H/L Range Note Laboratory test 10/02/2018 [facility] Point of Care 131 mg/dL High 70-[address] Glucose [place], [place] [id number] [phone] Laboratory test 09/25/2018 [facility] Point of Care 95 mg/dL N 70-100 [address] Glucose [place], [place] [id number] [phone] 1 Film Sorter: [id number] Film Sorter: [id number] Procedures Date Code Description Status 10/02/2018 29223 Extracapsular Cataract Extraction W/Intraocular Lens Completed 10/02/2018 0191T Insertion Of Anterior Segment Aqueous Drainage Device Completed 09/25/2018 05536 Extracapsular Cataract Extraction W/Intraocular Lens Completed 09/25/2018 0191T Insertion Of Anterior Segment Aqueous Drainage Device Completed 09/03/2018 82863 Ophthalmic Biometry By Partial Coherence Interferometry Completed W/Intra 09/03/2018 87037 Eye Exam Est Intermediate Completed 07/19/2018 39692 Fundus Photography W/Interpretation & Report Completed 07/19/2018 14424 Eye Exam Est Intermediate Completed 04/19/2018 10341 Visual Field Exam Extended, Unilateral Or Bilateral Completed 04/19/2018 29261 Correct Trichiasis, Epilation By Forceps Only Completed 10/17/2017 49410 Oct, Optic Nerve Completed 10/17/2017 04794 Eye Exam Est Intermediate Completed 07/19/2017 62677 Eye Exam Est Intermediate Completed 07/19/2017 15211 Refraction Completed 07/19/2017 93839 Fundus Photography W/Interpretation & Report Completed 04/19/2017 60549 Eye Exam Est Intermediate Completed 12/21/2016 85000 Visual Field Exam Extended, Unilateral Or Bilateral Completed 12/21/2016 01690 Eye Exam Est Intermediate Completed 09/19/2016 57185 Oct, Optic Nerve Completed 09/19/2016 22623 Eye Exam Est Intermediate Completed 05/19/2016 59959 Fundus Photography W/Interpretation & Report Completed 05/19/2016 61052 Ophthalmoscopy Subsequent Completed 05/19/2016 94593 Refraction Completed 05/19/2016 95832 Eye Exam Est Comprehensive Completed 02/15/2016 52640 Eye Exam Est Intermediate Completed 09/23/2015 04148 Eye Exam Est Intermediate Completed 09/23/2015 78786 Visual Field Exam Extended, Unilateral Or Bilateral Completed 06/05/2015 59760 Oct, Optic Nerve Completed 06/05/2015 23148 Eye Exam Est Intermediate Completed 02/27/2015 53799 Fundus Photography W/Interpretation & Report Completed 02/27/2015 42259 Eye Exam Est Intermediate Completed 11/17/2014 58507 Eye Exam Est Intermediate Completed 08/19/2014 56028 Visual Field Exam Extended, Unilateral Or Bilateral Completed 08/19/2014 79527 Eye Exam Est Intermediate Completed 07/23/2014 40734 Eye Exam Est Intermediate Completed 03/20/2014 47890 Fundus Photography W/Interpretation & Report Completed 03/20/2014 52425 Refraction Completed 03/20/2014 10591 Eye Exam Est Comprehensive Completed 08/24/2011 02087 Eye Exam Est Intermediate Completed 08/24/2011 43528 Visual Field Exam Extended, Unilateral Or Bilateral Completed 12/10/2010 47826 Fundus Photography W/Interpretation & Report Completed 12/10/2010 33625 Ophthalmoscopy Subsequent Completed 12/10/2010 20450 Eye Exam Est Comprehensive Completed 06/09/2010 79022 Visual Field Exam Extended, Unilateral Or Bilateral Completed 06/09/2010 83108 Eye Exam Est Intermediate Completed 05/12/2010 60621 Visual Field Exam Extended, Unilateral Or Bilateral Completed 05/12/2010 71597 Refraction Completed 05/12/2010 01907 Eye Exam Est Intermediate Completed 05/12/2010 22260 Corneal Pachymetry, Unilateral/Bilateral Completed 03/23/2010 39772 Fundus Photography W/Interpretation & Report Completed 03/23/2010 94506 Ophthalmoscopy Initial Completed 03/23/2010 01300 Eye Exam New Comprehensive Completed Encounters Type [...]
[2018-11-19] MEDS ORDERED: Lidocaine 2% VISCOUS* 15 ML UDC PO ONE (22:55)
[2018-11-19] MEDS ORDERED: Al Hydrox/Mg Hydrox/Simet LIQ* 30 ML UDC PO ONE (22:55)
--- NOTE | 2018-11-19 23:20 | ED ---
HPI Chest Pain - HPI Summary HPI Summary: Patient complains of palpitations and chest pain after eating spicy food last night. Chest pain or palpitations have been persistent since last night, worse with eating and drinking since last night. Patient states history of heartburn , states this feels like her usual heartburn but worse, also states she feels that she is bloated with gas and has diffuse abdominal discomfort. Patient states she took Nexium and Carafate without relief. Denies fever, cough, sore throat, SOB, change in urine, change in bowel, vaginal symptoms. Medical history is GERD, DM 2, HTN, diabetes, HLD. - History of Current Complaint Chief Complaint: EDDysrhythmPalp Time Seen by Provider: 11/19/18 22:36 Hx Obtained From: Patient Onset/Duration: Started Hours Ago Timing: Constant Initial Severity: Severe Current Severity: Severe Pain Intensity: 10 Pain Scale Used: 0-10 Numeric Chest Pain Location: Diffuse Chest Pain Radiates: Yes Chest Pain Radiates To:: Epigastric Character: Burning Aggravating Factor(s): Other: Alleviating Factor(s): Rest Associated Signs and Symptoms: Positive: Chest Pain, Abdominal Pain - Additional Pertinent History Primary Care Physician: [id number] - Allergy/Home Medications Allergies/Adverse Reactions: Allergies Allergy/AdvReac Type Severity Reaction Status Date / Time hyoscyamine [From Levsin] Allergy Itching Verified 11/19/18 21:20 lisinopril Allergy Rash Verified 11/19/18 21:20 PMH/Surg Hx/FS Hx/Imm Hx Endocrine/Hematology History: Reports: Hx Diabetes - type II - oral meds Denies: Hx Anticoagulant Therapy, Hx Thyroid Disease Cardiovascular History: Reports: Hx Hypercholesterolemia, Hx Hypertension, Other Cardiovascular Problems/Disorders - HYPERCHOLESTEROLEMIA Denies: Hx Angioplasty, Hx Auto Implanted Cardiovert Defib, Hx Cardiac Arrest , Hx Congestive Heart Failure, Hx Coronary Artery Disease, Hx Deep Vein Thrombosis, Hx Pacemaker/ICD Respiratory History: Denies: Hx Asthma, Hx Chronic Obstructive Pulmonary Disease (COPD) GI History: Reports: Hx Gastroesophageal Reflux Disease, Hx Irritable Bowel - takes bentyl, amitiza, Hx Jaundice - when very young, Other GI Disorders - IBS History: Denies: Hx Renal Disease Musculoskeletal History: Reports: Hx Arthritis - osteoarthritis, Hx Back Problems, Hx Bursitis, Other Musculoskeletal History - left hip joint disease Sensory History: Reports: Hx Cataracts - both eyes, Hx Contacts or Glasses - glasses, Hx Glaucoma Denies: Hx Hearing Aid Opthamlomology History: Reports: Hx Cataracts - both eyes, Hx Contacts or Glasses - glasses, Hx Glaucoma Neurological History: Reports: Hx Headaches, Hx Migraine, Other Neuro Impairments/Disorders - vertigo Denies: Hx Dementia, Hx Seizures Psychiatric History: Reports: Hx Anxiety - about heights Denies: Hx Panic Disorder, Hx Substance Abuse - Cancer History Hx Chemotherapy: No Hx Radiation Therapy: No - Surgical History Surgery Procedure, Year, and Place: hysterectomy 2004 Hx Anesthesia Reactions: No - Immunization History Date of Tetanus Vaccine: pt unable to recall Date of Influenza Vaccine: pt unable to recall Infectious Disease History: No Infectious Disease History: Denies: Hx Hepatitis, Hx Human Immunodeficiency Virus (HIV), Hx Tuberculosis , Traveled Outside the [place] in Last 30 Days - Family History Known Family History: Positive: Hypertension, Other - Negative for Breast CA - Social History Alcohol Use: None Hx Substance Use: No Substance Use Type: Reports: None Hx Tobacco Use: No Smoking Status (MU): Never Smoked Tobacco Review of Systems Constitutional: Negative Eyes: Negative ENT: Negative Positive: Chest Pain Respiratory: Negative Positive: Abdominal Pain Genitourinary: Negative Musculoskeletal: Negative Skin: Negative Neurological: Negative Psychological: Normal All Other Systems Reviewed And Are Negative: Yes Physical Exam - Summary Physical Exam Summary: Abdomen soft nontender. Chest pain nonreproducible. Lung sounds clear to auscultation bilaterally. RRR. No peripheral edema. Triage Information Reviewed: Yes Vital Signs On Initial Exam: Initial Vitals Temp Pulse Resp BP Pulse Ox 98.7 F 89 16 140/72 99 11/19/18 21:17 11/19/18 21:17 11/19/18 21:17 11/19/18 21:17 11/19/18 21:17 Vital Signs Reviewed: Yes Appearance: Positive: Well-Appearing Skin: Positive: Warm Head/Face: Positive: Normal Head/Face Inspection Eyes: Positive: Normal ENT: Positive: Normal ENT inspection Neck: Positive: Supple Respiratory/Lung Sounds: Positive: Clear to Auscultation Cardiovascular: Positive: Normal Abdomen Description: Positive: Nontender Musculoskeletal: Positive: Normal Neurological: Positive: Normal Psychiatric: Positive: Normal AVPU Assessment: Alert - Deja Coma Scale Best Eye Response: 4 - Spontaneous Best Motor Response: 6 - Obeys Commands Best Verbal Response: 5 - Oriented Coma Scale Total: 15 Diagnostics - Vital Signs Vital Signs Temp Pulse Resp BP Pulse Ox 11/19/18 21:17 98.7 F 89 16 140/72 99 - Laboratory Result Diagrams: 11/19/18 23:07 11/19/18 23:07 Lab Statement: Any lab studies that have been ordered have been reviewed, and results considered in the medical decision making process. Chest Pain Course/Dx - Course Course Of Treatment: Patient complains of palpitations and chest pain after eating spicy food last night. Chest pain or palpitations have been persistent since last night, worse with eating and drinking since last night. Patient states history of heartburn, states this feels like her usual heartburn but worse, also states she feels that she is bloated with gas and has diffuse abdominal discomfort. Patient states she took Nexium and Carafate without relief. Denies fever, cough, sore throat, SOB, change in urine, change in bowel , vaginal symptoms. Medical history is GERD, DM 2, HTN, diabetes, HLD. Physical exam:Abdomen soft nontender. Chest pain nonreproducible. Lung sounds clear to auscultation bilaterally. RRR. No peripheral edema. Vital signs within normal limits. Labs unremarkable. EKG sinus rhythm. Chest x-ray negative. Symptoms improved with GI cocktail. Persistent Chest pain since last night. Initial troponin negative. Follow-up with primary care. Patient understands and approves of plan. - Diagnoses Provider Diagnoses: GERD (gastroesophageal reflux disease) Discharge - Sign-Out/Discharge Documenting (check all that apply): Patient Departure Patient Received Moderate/Deep Sedation with Procedure: No - Discharge Plan Condition: Stable Disposition: HOME Patient Education Materials: Gastroesophageal Reflux Disease (ED) Referrals: Genesis Louise MD [Primary Care Provider] - Additional Instructions: Follow-up with primary care. Return to the ED for any new or worsening symptoms. - Billing Disposition and Condition Condition: STABLE Disposition: Home
[2018-11-19 23:21] LABS: ABS Basophils 0 10^3/ul (0-0.2); ABS Eosinophils 0.1 10^3/ul (0-0.6); ABS Lymphocytes 2.4 10^3/ul (1.0-4.8); ABS Monocytes 0.8 10^3/ul (0-0.8); ABS Neutrophils 4.3 10^3/ul (1.5-7.7); ABS Nucleated RBC 0 10^3/ul; Eosinophil % 1.4 %; Hematocrit 36 % (33-41); Hemoglobin 11.7 g/dL (12.0-16.0); Lymphocyte % 31.7 %; Mean Corpuscular HGB Conc 33 g/dL (31-36); Mean Corpuscular Hemoglobin 27 pg (27-31); Mean Corpuscular Volume 84 fL (80-97); Mean Platelet Volume 7.3 fL (7.4-10.4); Nucleated Red Blood Cells % 0.2; Platelet Count 319 10^3/uL (150-450); Red Blood Count 4.31 10^6 /uL (3.70-4.87); Red Cell Distribution Width 17 % (10.5-15); White Blood Count 7.6 10^3/uL (3.5-10.8)
[2018-11-19 23:26] LABS: INR 0.99 (0.82-1.09)
[2018-11-19 23:37] LABS: ALT 11 U/L (7-52); AST 14 U/L (13-39); Albumin 3.6 g/dL (3.2-5.2); Albumin/Globulin Ratio 1.2 (1-3); Alkaline Phosphatase 70 U/L (34-104); Anion Gap 5 mmol/L (2-11); BUN/Creatinine Ratio 20.9 (8-20); Blood Urea Nitrogen 19 mg/dL (6-24); C Reactive Protein < 1.00 mg/L (<8.01); CO2 Carbon Dioxide 27 mmol/L (22-32); Calcium 9.1 mg/dL (8.6-10.3); Chloride 105 mmol/L (101-111); EGFR African American 75.8 (>60); EGFR Non-African American 62.6 (>60); Glucose 109 mg/dL (70-100); Magnesium 1.8 mg/dL (1.9-2.7); Sodium 137 mmol/L (135-145); Total Protein 6.6 g/dL (6.4-8.9)
[2018-11-19 23:52] LABS: TSH (Thyroid Stimulating Horm) 2.02 mcIU/mL (0.34-5.60)
[2018-11-20 00:08] VITALS: BP 139/83
== END 2018-11-20 00:07 | disposition home or self-care (01) ==
LOC: ED 21:12
DX: K21.9 Gastro-esophageal reflux disease without esophagitis (principal); E11.9 Type 2 diabetes mellitus without complications; I10 Essential (primary) hypertension; E78.5 Hyperlipidemia, unspecified; Z79.84 Long term (current) use of oral hypoglycemic drugs; E78.00 Pure hypercholesterolemia, unspecified; K58.9 Irritable bowel syndrome, unspecified
CPT/HCPCS: 36415; 71046; 80053; 83690; 83735; 84443; 84484; 85025; 85610; 86140; 93005; 99283; A9270-GY

== ENCOUNTER 2019-06-03 21:47 | Emergency (ER) | payer MEDICARE, OTHER ==
[2019-06-03] MEDS ORDERED: Al Hydrox/Mg Hydrox/Simet LIQ* 30 ML UDC PO ONE (21:58)
[2019-06-03] MEDS ORDERED: Dicyclomine CAP* 10 MG PO ONE (21:58)
[2019-06-03] MEDS ORDERED: Lidocaine 2% VISCOUS* 15 ML UDC PO ONE (21:58)
[2019-06-03] MEDS ORDERED: Ondansetron ODT TAB* 4 MG SL ONE (21:59)
--- NOTE | 2019-06-03 22:28 | ED ---
Abdominal Pain/Female - HPI Summary HPI Summary: Patient is a 64 y/o F presenting to the ED via EMS for a chief complaint of diffuse abdominal pain for the last few days. Patient also reports generalized weakness, abdominal bloating, nausea, lightheadedness, blurry vision when not using her glasses, and headache. Patient denies vomiting, decreased appetite, dysuria, urinary burning, or fever. Patient last had a bowel movement with constipation on 06/03/19. Patient rates the abdominal pain as 10/10 in severity. Patient took pain medications without relief of headache, which she states in unusual. Patient has a PMHx of IBS, DM, GERD, and HTN. Patient has a PSHx of complete hysterectomy. Patient lives alone. Medications reviewed. - History of Current Complaint Chief Complaint: EDAbdPain Stated Complaint: GENERAL ILLNESS PER EMS Time Seen by Provider: 06/03/19 21:55 Hx Obtained From: Patient Onset/Duration: Sudden Onset, Still Present Timing: Constant Severity Initially: Severe Severity Currently: Severe Pain Intensity: 10 Pain Scale Used: 0-10 Numeric Location: Diffuse Radiates: No Aggravating Factor(s): Nothing Alleviating Factor(s): OTC Analgesics - No relief with Tylenol Associated Signs and Symptoms: Positive: Constipation, Nausea. Negative: Fever , Urinary Symptoms - Negative dysuria or urinary burning, Vomiting Allergies/Adverse Reactions: Allergies Allergy/AdvReac Type Severity Reaction Status Date / Time hyoscyamine [From Levsin] Allergy Itching Verified 11/19/18 21:20 lisinopril Allergy Rash Verified 11/19/18 21:20 PMH/Surg Hx/FS Hx/Imm Hx Previously Healthy: Yes Endocrine/Hematology History: Reports: Hx Diabetes - type II - oral meds Denies: Hx Anticoagulant Therapy, Hx Thyroid Disease Cardiovascular History: Reports: Hx Hypercholesterolemia, Hx Hypertension, Other Cardiovascular Problems/Disorders - HYPERCHOLESTEROLEMIA Denies: Hx Angioplasty, Hx Auto Implanted Cardiovert Defib, Hx Cardiac Arrest , Hx Congestive Heart Failure, Hx Coronary Artery Disease, Hx Deep Vein Thrombosis, Hx Pacemaker/ICD Respiratory History: Denies: Hx Asthma, Hx Chronic Obstructive Pulmonary Disease (COPD) GI History: Reports: Hx Gastroesophageal Reflux Disease, Hx Irritable Bowel - takes bentyl, amitiza, Hx Jaundice - when very young, Other GI Disorders - IBS History: Denies: Hx Renal Disease Musculoskeletal History: Reports: Hx Arthritis - osteoarthritis, Hx Back Problems, Hx Bursitis, Other Musculoskeletal History - left hip joint disease Sensory History: Reports: Hx Cataracts - both eyes, Hx Contacts or Glasses - glasses, Hx Glaucoma Denies: Hx Hearing Aid Opthamlomology History: Reports: Hx Cataracts - both eyes, Hx Contacts or Glasses - glasses, Hx Glaucoma Neurological History: Reports: Hx Headaches, Hx Migraine, Other Neuro Impairments/Disorders - vertigo Denies: Hx Dementia, Hx Seizures Psychiatric History: Reports: Hx Anxiety - about heights Denies: Hx Panic Disorder, Hx Substance Abuse - Cancer History Hx Chemotherapy: No Hx Radiation Therapy: No - Surgical History Surgical History: Yes Surgery Procedure, Year, and Place: hysterectomy 2004 Hx Anesthesia Reactions: No - Immunization History Date of Tetanus Vaccine: pt unable to recall Date of Influenza Vaccine: pt unable to recall Infectious Disease History: No Infectious Disease History: Denies: Hx Hepatitis, Hx Human Immunodeficiency Virus (HIV), Hx Tuberculosis , Traveled Outside the [place] in Last 30 Days - Family History Known Family History: Positive: Hypertension, Other - Negative for Breast CA - Social History Occupation: Unemployed Lives: With Family Alcohol Use: None Hx Substance Use: No Substance Use Type: Reports: None Hx Tobacco Use: No Smoking Status (MU): Never Smoked Tobacco Review of Systems Positive: Other - Negative decreased appetite. Negative: Fever Positive: Blurred Vision - When not wearing glasses Positive: Abdominal Pain - Diffuse with bloating, Nausea, Other - Positive constipation. Negative: Vomiting Negative: burning - Urinary, dysuria Neurological: Other - Positive lightheadedness Positive: Headache, Weakness - Generalized All Other Systems Reviewed And Are Negative: Yes Physical Exam - Summary Physical Exam Summary: Appearance: Well-appearing, Well-nourished, lying in bed comfortably Skin: Warm, dry, no obvious rash Eyes: sclera anicteric, no conjunctival pallor ENT: mucous membranes moist, pharynx appears normal Neck: Supple, nontender Respiratory: Clear to auscultation, no signs of respiratory distress Cardiovascular: Normal S1, S2. No murmurs. Normal distal pulses in tibial and radial bilaterally. Abdomen: Soft, nontender, normal active bowel sounds present Musculoskeletal: Normal, Strength/ROM Intact Neurological: A&Ox3, awake and alert, mentation is normal, speech is fluent and appropriate Psychiatric: affect is normal, does not appear anxious or depressed Triage Information Reviewed: Yes Vital Signs On Initial Exam: Initial Vitals Temp Pulse Resp BP Pulse Ox 99.1 F 82 18 144/91 98 06/03/19 21:58 06/03/19 21:58 06/03/19 21:58 06/03/19 21:58 06/03/19 21:58 Vital Signs Reviewed: Yes Procedures - Sedation Patient Received Moderate/Deep Sedation with Procedure: No Diagnostics - Vital Signs Vital Signs Temp Pulse Resp BP Pulse Ox 06/03/19 21:58 99.1 F 82 18 144/91 98 - Laboratory Result Diagrams: 06/03/19 23:19 06/03/19 23:19 Lab Statement: Any lab studies that have been ordered have been reviewed, and results considered in the medical decision making process. Abdominal Pain Fem Course/Dx - Course Course Of Treatment: Patient is a 64 y/o F presenting to the ED via EMS for a chief complaint of diffuse abdominal pain for the last few days. Patient also reports generalized weakness, abdominal bloating, nausea, lightheadedness, blurry vision when not using her glasses, and headache. Patient denies vomiting , decreased appetite, dysuria, urinary burning, or fever. Patient last had a bowel movement with constipation on 06/03/19. Patient rates the abdominal pain as 10/10 in severity. Patient took pain medications without relief of headache, which she states in unusual. Patient has a PMHx of IBS, DM, GERD, and HTN. Patient has a PSHx of complete hysterectomy. Patient lives alone. Medications reviewed. On exam, unremarkable findings. In the ED course, patient was given simethicone 30 ml PO, dicyclomine 10 mg PO, lidocaine 15 ml PO, ondansetron 8 mg SL, and acetaminophen 1 tab PO. Laboratory abnormal findings: Hgb 11.2, Hct 34, RDW 17, BUN/Creatinine ratio 20.9, glucose 149, total protein 6.2, urine specific gravity 1.009. Patient will be discharged with a diagnosis of headache and chronic abdominal pain. Follow up with PCP in 2 days. - Diagnoses Provider Diagnoses: Headache, Chronic abdominal pain Discharge ED - Sign-Out/Discharge Documenting (check all that apply): Patient Departure - Discharge - Discharge Plan Condition: Good Disposition: HOME Patient Education Materials: Irritable Bowel Syndrome (ED), Tension Headache ( ED) Referrals: Bhavana Rosas MD [Primary Care Provider] - If Needed - Billing Disposition and Condition Condition: GOOD Disposition: Home - Attestation Statements Document Initiated by Aric: Yes Documenting Scribe: Pat Rahman Provider For Whom Aric is Documenting (Include Credential): Norris Alonzo MD Scribe Attestation: Pat Do, scribed for Norris Alonzo MD on 06/07/19 at 0303. Scribe Documentation Reviewed: Yes Provider Attestation: The documentation as recorded by the Pat garcia accurately reflects the service I personally performed and the decisions made by me, Norris Alonzo MD Status of Scribe Document: Viewed
--- OUTSIDE RECORDS SUMMARY | 2019-06-03 22:28 | XMS REPORT | Continuity of Care Document ---
:1955 External Reference #:[id number] Author Name Bhavana Rosas MD (transmitted by agent of provider Jessica Miranda) Address [address] [facility] [facility], [place] [address] Care Team Providers Name Role Phone Bhavana Rosas M.D. - Family Medicine Care Team Information Blood Bank Technician Omer Ca MD - Gastroenterology Care Team Information Blood Bank Technician [phone] Maikel Lloyd MD - Care Team Information Blood Bank Technician [phone] Otolaryngology Problems Active Problems Provider Date Type 2 diabetes mellitus Amado Morales M.D.,FACP Onset: 07/09/2007 Gastroesophageal reflux disease Amado Morales M.D.,FACP Onset: 2007 Degenerative joint disease involving Amado Morales M.D.,FACP Onset: multiple joints Allergic rhinitis due to pollen Mitzy Aldana N.P. Onset: 04/04/2012 Dermatitis Amado Morales M.D.,FACP Onset: 07/09/2007 Chronic mixed headache syndrome Amado Morales M.D.,FACP Onset: 2013 Irritable bowel syndrome Amado Morales M.D.,FACP Onset: 07/09/2007 Blossoma Morales Ybarra M.D. Onset: 04/02/2018 Social History Type Date Description Comments Sex Unknown Tobacco Use Start: Unknown Never Smoked Cigarettes ETOH Use 12/01/2017 Denies alcohol use Tobacco Use Start: Unknown Patient has never smoked Recreational Drug Use Denies Drug Use Smoking Status Reviewed: 04/30/19 Patient has never smoked Allergies, Adverse Reactions, Alerts Active Allergies Reaction Severity Comments Date Lisinopril rash 02/29/2012 Levsin urticaria 03/02/2012 Inactive Allergies NKDA 2011 Medications Active Medications SIG Qnty Indications Ordering Date Provider Mirtazapine one by mouth at 30tabs Bhavanasabine RussellRosas, 01/25/2019 15mg Tablets bedtime Xyzal Allergy 24HR one daily 30tabs J30.9 Bhavana Rosas, 01/25/2019 5mg MD Tablets Dicyclomine HCL one by mouth up 60caps Bhavana Rosas, 11/09/2018 10mg to 4 x/day as MD Capsules needed for stomach cramps Atorvastatin Calcium take one tablet 90tabs E78.5 Bhavana Rosas, 10/19/2018 20mg by mouth at MD Tablets bedtime Fluticasone Propionate 1 sprays each 16gm Bhavana Rosas, 10/05/2018 nostril twice MD 50mcg/Act Suspension daily Prochlorperazine [address] of 24units Bhavanasabine Rosas, 09/14/2018 25mg rectum every day MD Suppository as needed Pioglitazone HCL take one tablet 30tabs Bhavanasabine Frenche, 09/12/2018 30mg by mouth every MD Tablets day Ondansetron dissolve one 30tabs H83.09 Bhavana Rosas, 06/18/2018 4mg Tablets tablet orally MD Dispers every 8 hours as needed for nausea. Nabumetone take 1 tablet by 180tabs Amado Barber 05/14/2018 750mg Tablets mouth twice a day [place], as needed M.D.,FACP Simethicone 1 tab twice a day 30units Amado Barber 11/07/2017 80mg Chewtabs as needed [place], bloating M.D.,FACP Potassium Chloride Ernestine Take One Tablet 90tabs Phillofisabine Galeana, 12/07/2016 ER By Mouth Every MET[employer] PRODUCTS VIEWER 20Meq Tablets ER Day Acetaminophen Extra 1 tab q 4 hrs as 120tabs Other Ordering 10/27/2016 Strength needed for pain Provider 500mg Tablets Excedrin Migraine 1 tab bid as 30tabs Other Ordering 10/27/2016 needed for Provider [phone] Tablets migraine Poise Pads Moderate pt uses 4 pads 120units Allen Block, 10/19/2016 Absorbency Long per day, may fill RESIDENTIAL TREATMENT COUNSELOR Pads generically Depend Silhouette or generic 120units N39.46 Allen Block, 08/30/2016 Active Fit equivalent change RESIDENTIAL TREATMENT COUNSELOR Misc twice a day as needed Bathtub Safety Rail 1 safety bar for 1units N39.46 Allen Block, 2016 Misc tub use RESIDENTIAL TREATMENT COUNSELOR M15.0 Raised Toilet Seat use for ease of 1units N39.46 Allen Block, 08/30/2016 Misc toileting RESIDENTIAL TREATMENT COUNSELOR Senna take two tablets by 180tabs Bhavana Rosas MD 05/27/2016 8.6mg Tablets mouth at bedtime as needed for constipation Freestyle Lite Test use for testing daily 100units Amado Barber 2015 and as needed e11.9 Rebeca Morales,FACP Strips Blood Pressure check bp twice a week 1units I10 Allen Block, 12/04/2015 Kit/Oscillating/Digita RESIDENTIAL TREATMENT COUNSELOR l Kit Freestyle Lancets use as directed 50units Amado Barber 05/23/2014 [facility] [place]beca Morales,FACP Walker With Wheels, use as need for Dx 1units Amado Barber 10/10/2013 Basket And Brakes code: 250.60 Diabetic Rebeca Morales,FACP 1-07/31" Neuropathy [facility] [place] Humidifier 1.25 Gallon use daily 1units Amado Barber 04/23/2013 Rebeca Morales,FACP 1.25Gal [facility] [place] T.E.D. Anti-Embolism please fit, pt 3units R60.0 Catalina Rosales, 2012 Stockings Knee Length prefers black N.P. Misc Amitiza take one capsule by 60caps K58.1 Bhavana Rosas MD 11/21/2012 24mcg Capsules mouth twice a day Nexium take one capsule by 90caps K21.9 Bhavana Rosas MD 11/09/[address] mouth every day Losartan Potassium Take One Tablet By 30tabs I10 Bhavana Rosas MD 2011 25mg Mouth Every Day Tablets Triamcinolone Apply topically to 15gm L50.0 Bhavana Rosas MD 03/02/2012 Acetonide affected area twice a 0.1% Cream day for 2 weeks and then as needed. Januvia Take One Tablet By 30tabs Yasmeen Johnson, 06/08/2011 100mg Tablets Mouth Every Day Rebeca Freestyle Lite Blood check fingerstick 1units Amado Barber 05/26/2011 Glucose Monitoring daily Rebeca Morales,FACP System Device Multivitamins one po qday 30tabs Amado Barber 11/24/2010 Tablets Rebeca Morales,FACP Calcium 1 per day Morales 04/08/2010 1000mg Rebeca Ybarra Thermacare Back/Hip topical tid prn 30units Amado Barber 10/30/2009 Misc for Rebeca Morales,FACP delivery Carafate take 10ml (2 420units K21.9 Alexis EAnna 01/01/2008 1GM/10ML teaspoonful) by mouth Rebeca Reeves Suspension four times a day as needed Salonpas Lidocaine Unknown Lidocaine Viscous Unknown 2% Solution History Medications Mirtazapine one by mouth 60tabs Bhavana Rosas MD 12/26/2018 - 7.5mg daily, at 01/25/2019 Tablets bedtime. may increase to 2 tabs after 2 weeks Escitalopram Oxalate 1 by mouth every 30tabs Bhavana Rosas MD 12/20/2018 - day in in the 12/26/2018 10mg Tablets morning, with food Sertraline HCL start one daily 60tabs F43.21 Bhavana Rosas MD 12/14/2018 - 25mg for one week, 12/20/2018 Tablets then 2 tabs po, take at night Immunizations CPT Code Status Date Vaccine Lot # [id number] Given 04/27/2018 Influenza Virus Vaccine, Quadrivalent, Split, [id number] Preservative Free 29292 Given 03/30/2017 Influenza Virus Vaccine, Quadrivalent, Split, [id number] Preservative Free 69359 Given 02/24/2017 Zoster (Zostavax) [id number] 22983 Given 04/20/2016 Influenza Virus Vaccine, Quadrivalent, Split, [id number] Preservative Free 52324 Given 05/22/2015 Influenza Virus Vaccine, Quadrivalent, Split, [id number] Preservative Free 50069 Given 04/14/2014 Influenza Virus Vaccine, Quadrivalent, Split, [id number] Preservative Free 84141 Given 04/17/2013 Flu Vaccine Split Virus Preservative Free For [id number] Indiv 3Yr Older 19728 Given 11/09/2012 Hepatitis B Vaccine Adult Dosage [id number] Q2038 Given 04/04/2012 Fluzone Vaccine [id number] 01065 Given 02/27/2012 Hepatitis B Vaccine Adult Dosage [id number] 21046 Given 01/26/2012 Hepatitis B Vaccine Adult Dosage [id number] 14012 Given 10/27/2011 Tdap - Tetanus/Diptheria/Acellular Pertussis [id number] 39112 Given 04/22/2011 Influenza Virus 3Yrs & Over [id number] 23234 Given 05/14/2010 Influenza Virus 3Yrs & Over [id number] 78925 Given 05/26/2009 Influenza Virus Vaccine, Pandemic Formulation [id number] 15120 Given 05/26/2009 Administration Swine Flu Shot 55102 Given 05/19/2009 Influenza Virus 3Yrs & Over [id number] 86173 Given 05/12/2008 Influenza Virus 3Yrs & Over 38127 Given 05/23/2007 Influenza Virus 3Yrs & Over 12008 Given 05/23/2007 Influenza Virus 3Yrs & Over [id number] 00134 Given 04/10/2007 Pneumonia Vaccine Vital Signs Date Vital Result Comment 04/30/2019 9:09am Height 65 inches 5'5" Weight 250.00 lb Heart Rate 79 /min BP Systolic Sitting 120 mmHg Lue lg cuff BP Diastolic Sitting 78 mmHg Lue lg cuff O2 % BldC Oximetry 97 % BMI (Body Mass Index) 41.6 kg/m2 01/25/2019 8:57am Height 65 inches 5'5" Weight 248.00 lb Heart Rate 85 /min BP Systolic 120 mmHg BP Diastolic 80 mmHg Body Temperature 98.2 F O2 % BldC Oximetry 97 % BMI (Body Mass Index) 41.3 kg/m2 Results Test Date Facility Test Result H/L Range Note Laboratory test 02/14/2019 [facility] Hemoglobin A1c 6.4 % High 4.0-5.[address] (Glyco HGB) [place] [address] [phone] Laboratory test 01/25/2019 [facility] Hemoglobin A1c 6.0 5-7 finding Laboratory test 11/19/2018 [facility] Troponin-I 0.00 ng/mL < 0.04 2 finding [address] (TnI) [place] [address] [phone] Comp Metabolic 11/19/2018 [facility] Sodium 137 mmol/L Normal 135-[address] [place] [address] [phone] Potassium 4.0 mmol/L Normal 3.5-5.0 Chloride 105 mmol/L Normal 101-111 Co2 Carbon Dioxide 27 mmol/L Normal 22-32 Anion Gap 5 mmol/L Normal 2-11 Glucose 109 mg/dL High 70-100 Blood Urea Nitrogen 19 mg/dL Normal 6-24 Creatinine 0.91 mg/dL Normal 0.51-0.95 BUN/Creatinine Ratio 20.9 High 8-20 Calcium 9.1 mg/dL Normal 8.6-10.3 Total Protein 6.6 g/dL Normal 6.4-8.9 Albumin 3.6 g/dL Normal 3.2-5.2 Globulin 3.0 g/dL Normal 2-4 Albumin/Globulin Ratio 1.2 Normal 1-3 Total Bilirubin 0.40 mg/dL Normal 0.2-1.0 Alkaline Phosphatase 70 U/L Normal 34-104 Alt 11 U/L Normal 7-52 Ast 14 U/L Normal 13-39 Egfr Non- 62.6 >60 Egfr 75.8 >60 3 Laboratory test 11/19/2018 [facility] Magnesium 1.8 mg/dL Low 1.9-2.[address] [place] [address] [phone] Lipase 44 U/L Normal 11.0-82.0 C Reactive Protein < 1.00 mg/L Normal <8.01 TSH (Thyroid Stim Horm) 2.02 mcIU/mL Normal 0.34-5.60 Laboratory test 10/30/2018 [facility] Clotest SEE RESULT [address] [place] [address] [phone] Laboratory test 10/30/2018 [facility] Surgical SEE RESULT [address] [place] [address] [phone] Laboratory test 10/30/2018 [facility] Point of Care 91 mg/dL Normal 70-10 [address] Glucose 0 [place] [address] [phone] 1 Therapeutic target for the treatment of diabetes mellitus patients is <7% HBA1C, and in selective patients <6.0%. Please refer to [place] [employer] diabetic care guidelines for further information. 2 Troponin-I testing on Plasma Separator Tubes (PST) has a known false positive rate of 0.20-0.40%. All positive troponins reflex immediately to secondary confirmatory testing. Using the [employer] 800 Access Immunoassay systems, the 99th percentile upper reference limit was demonstrated to be < 0.03 ng/mL. 3 Because ethnic data is not always readily available, this report includes an eGFR for both -Americans and non- Americans. The National Kidney Disease Education Program (NKDEP) does not endorse the use of the MDRD equation for patients that are not between the ages of 18 and 70, are , have extremes of body size, muscle mass, or nutritional status, or are non- or non-. According to the National Kidney Foundation, irrespective of diagnosis, the stage of the disease is based on the level of kidney function: Stage Description GFR(mL/min/1.73 m(2)) 1 Kidney damage with normal or decreased GFR 90 2 Kidney damage with mild decrease in GFR 60-89 3 Moderate decrease in GFR 30-59 4 Severe decrease in GFR 15-29 5 Kidney failure <15 (or dialysis) 4 SEE RESULT BELOW Name: OSEAS MELARA : [address]: Omer Ca MD Acct: [id number] Unit: [id number] AGE: 63 Location: ENDO Re10/30/18 SEX: F Status: REG REF SPEC: [id number] NICK: 10/30/18-[address] [facility] [address]: Omer Ca MD REQ: [id number] RECD: 10/30/18 STATUS: VALERIY JERONIMO DR: Genesis Louise MD _ SOURCE: GAS ANTRUM SPDESC: ORDERED: Clotest Procedure Result Reported Site Clotest Final 10/31/18- 0802 ML Clotest Negative * ML - Main Lab . END OF REPORT DEPARTMENT OF PATHOLOGY, [address] [place] [address] Doug Marlow M.D. Director AGGIE # [id number] 5 SEE RESULT BELOW Name: OSEAS MELARA Sabine : [address]: Omer Ca MD Acct: [id number] Unit: [id number] AGE: 63 Location: ENDO Re10/30/18 SEX: F Status: DEP REF SPEC: [id number] NICK: 10/30/18-[address] [facility] [address]: Omer Ca MD REQ: [id number] RECD: 10/30/18-0790 STATUS: SLOAN JERONIMO DR: Genesis Louise MD _ ORDERED: LEVEL 4/4, IMMUNO-FIRST ADDENDUM An H. pylori immunohistochemical staining, with appropriately reacting controls, was performed on sections cut from specimen one and is negative for Helicobacter organisms. Addendum Signed (signature on file) Gina Hanson MD 07/11 1225 FINAL DIAGNOSIS 1. Stomach, thickened gastric fold, biopsy: -- Body-type gastric mucosa with mild chronic gastritis; see comment. 2. Stomach, fundus thickened fold, biopsy: -- Fundic gland polyp. 3. Colon, descending, biopsy: -- Hyperplastic polyp. 4. Colon, rectosigmoid, biopsy: -- Hyperplastic polyp. COMMENT: An H. pylori immunohistochemical stain is pending for specimen 1 and the results will be reported in an addendum. CONTINUED ON NEXT PAGE DEPARTMENT OF PATHOLOGY, [address] [place] [address] Doug Marlow M.D. Director [facility] # [id number] RUN DATE: 11/02/18 [facility] LAB LIVE PAGE 2 Patient: JOSE MMARIONOSEAS Sabine [id number] (Continued) CLINICAL HISTORY (Continued) CLINICAL HISTORY Nausea aide POST-OPERATIVE DIAGNOSIS EGD: larynx - not seen; esophagus - normal no erosions; stomach - pouch papillated antrum body and fundus; no erosions biopsy (2); duodenum - normal x 35 cm; colonoscopy: poor prep; (2) nodules; conclusions: gastropathy; colon nodules; constipation GROSS DESCRIPTION 1. The specimen is received in formalin labeled, Thickened Gastric Fold Biopsy, and consists of two brito irregular soft tissue fragments averaging 0.6 by up to 0.3 x 0.2 cm which are submitted entirely in one cassette. 2. The specimen is received in formalin labeled, Thickened Fold Gastric Fundus, and consists of three brito irregular soft tissue fragments ranging from 0.5 x 0.4 x 0.2 cm to 1.0 x 0.3 x 0.1 cm which are submitted entirely in one cassette. 3. The specimen is received in formalin labeled, Biopsy Descending Colon Polyp, and consists of two brito irregular to polypoid soft tissue fragments averaging 0.5 x 0.3 x 0.2 cm which are submitted entirely in one cassette. 4. The specimen is received in formalin labeled, Biopsy Rectosigmoid Polyp , and consists of a 0.4 x 0.3 x 0.2 cm brito polypoid soft tissue fragment which is submitted entirely in one cassette. Signed by and Reported on: Gina Hanson MD 11/01/18 1128 END OF REPORT DEPARTMENT OF PATHOLOGY, [address] [place] [address] Doug Marlow M.D. Director [facility] # [id number] 6 [employer] Electrical Helper: [id number] Procedures Date Code Description Status 10/30/2018 16795 Colonoscopy Flexible W/Biopsy Completed 10/30/2018 07230 Endoscopy Upper GI Biopsy Completed 07/26/2018 [id number] Bone Mineral Density Test Completed 07/19/2018 541260499 Diabetic Retinal Eye Exam Completed 07/06/2018 72842811 Mammogram Completed 04/20/2017 23837870 Mammogram Completed 09/02/2016 468595022 Diabetic Foot Exam Completed 09/23/2015 261493425 Diabetic Retinal Eye Exam Completed 01/01/2015 12591448 Mammogram Completed 07/23/2014 860464549 Diabetic Retinal Eye Exam Completed 03/20/2014 663198262 Diabetic Retinal Eye Exam Completed 05/16/2013 39319637 Mammogram Completed 08/11/2011 78089498 Mammogram Completed 08/04/2010 61474809 Mammogram Completed 07/02/2009 77290691 Colonoscopy Completed 06/17/2009 59539652 Mammogram Completed 05/21/2008 18719951 Mammogram Completed 05/24/2003 73125502 Colonoscopy Completed Medical Devices Description No Information Available Encounters Type Date Location Provider Dx Diagnosis Office Visit 01/25/2019 [facility] Bhavana Rosas MD F43.21 Adjustment disorder 9:40a Medicine - [facility] with depressed mood J30.9 Allergic rhinitis, unspecified K58.2 Mixed irritable bowel syndrome R60.0 Localized edema E11.9 Type 2 diabetes mellitus without complications Office Visit 12/14/2018 9:20a [facility] Internal Bhavana Rosas MD K58.2 Mixed irritable Medicine - Ccmob bowel syndrome J30.9 Allergic rhinitis, unspecified F43.21 Adjustment disorder with depressed mood Assessments Date Code Description Provider 04/30/2019 M54.5 Low back pain Bhavana Rosas MD 04/30/2019 F43.21 Adjustment disorder with depressed mood Bhavana Rosas MD 04/30/2019 R60.0 Localized edema Bhavana Rosas MD 04/30/2019 E11.9 Type 2 diabetes mellitus without complications Bhavana Rosas MD 01/25/2019 F43.21 Adjustment disorder with depressed mood Bhavana Rosas MD 01/25/2019 J30.9 Allergic rhinitis, unspecified Bhavana Rosas MD 01/25/2019 K58.2 Mixed irritable bowel syndrome Bhavana Rosas MD 01/25/2019 R60.0 Localized edema Bhavana Rosas MD 01/25/2019 E11.9 Type 2 diabetes mellitus without complications Bhavana Rosas MD 12/14/2018 K58.2 Mixed irritable bowel syndrome Bhavana Rosas MD 12/14/2018 J30.9 Allergic rhinitis, unspecified Bhavana Rosas MD 12/14/2018 F43.21 Adjustment disorder with depressed mood Bhavana Rosas MD 10/30/2018 K63.5 Polyp of colon Omer Ca MD 10/30/2018 K59.00 Constipation, unspecified Omer Ca MD 10/30/2018 K29.50 Unspecified chronic gastritis without bleeding Omer Ca MD 10/30/2018 K21.9 Gastro-esophageal reflux disease without Omer Ca MD esophagitis 10/30/2018 K31.9 Disease of stomach and duodenum, unspecified Omer Ca MD 10/30/2018 R11.0 Nausea Omer Ca MD 10/30/2018 R14.0 Abdominal distension (gaseous) Omer Ca MD Plan of Treatment Future Appointment(s):07/31/2019 10:40 am - [facility] Bhavana Rosas MDM54.5 Low back painReferral:Jerson Silverio MD, Surgery,MmiiuloubdE71.21 Adjustment disorder with depressed moodComments:continue fvxncjvsngfT98.0 Localized edemaComments:improved since last visit. use compression stocking whenever you can, and elevate your legsE11.9 Type 2 diabetes mellitus without complicationsComments:You are meeting goal for blood sugar control. Changes to medications are not indicated. A yearly nutrition visit is available to all diabetics. You are on a moderate-potency statin to prevent new orrecurrent heart disease, which is common in diabetics.Follow up:3 months, Dr. YeboahImmunizations/Injections: Pneumonia Vaccine Goals 04/30/2019 - Bhavana Rosas MDE11.9 Type 2 diabetes mellitus without complicationsGoal Hemoglobin A1c is less than 7.0% in ages 18-74 Goal Hemoglobin A1c is between 7.0% and 8.0% in age over 75 Goal Blood pressure is less than 130/85. Cholesterol should be lowered by a high or moderate-dose statin. Functional Status Description No Information Available Mental Status Description No Information Available Referrals Refer to Reason for Referral Status Appt Date Jerson Silverio MD pt established with you for several years, now Created with recurrence of low back pain, suspected stenosis [address] [place] [address] [phone]
--- OUTSIDE RECORDS SUMMARY | 2019-06-03 22:28 | XMS REPORT | Continuity of Care Document ---
:1955 External Reference #:[id number] Author Name Omer Leavitt M.D. Address [address] [place] [place] [address] Care Team Providers Name Role Phone Carmen MERRILL, Amado - Internal Care Team Information Inbound Sales Representative [phone] Medicine [facility] Care Team Information Inbound Sales Representative Problems Active Problems Provider Date Open-angle glaucoma Omer Leavitt M.D. Onset: 03/20/2014 Type 2 diabetes mellitus Omer Leavitt M.D. Onset: 03/20/2014 Nuclear senile cataract Omre Leavitt M.D. Onset: 03/20/2014 Headache Gigi Tan O.D. Onset: 07/23/2014 Primary open-angle glaucoma, severe stage Omer Leavitt M.D. Onset: 2014 Primary open-angle glaucoma, moderate stage Omer Leavitt M.D. Onset: 09/22 Social History Type Date Description Comments Sex Unknown ETOH Use Denies alcohol use Tobacco Use Start: Unknown Patient has never smoked Smoking Status Reviewed: 04/25/19 Patient has never smoked Allergies, Adverse Reactions, Alerts Description No Known Drug Allergies Medications Active Medications SIG Qnty Indications Ordering Date Provider Latanoprost 1 drops both eyes 7.5ml H40.1132 Omer Leavitt, 04/05/2019 0.005% every night M.D. Solution Atorvastatin Calcium Unknown 20mg Tablets Fany Morales MD, 100mg Tablets Amado Klor-Con M20 Carmen MERRILL, 20Meq Amado Tablets ER Losartan Potassium Carmne MERRILL, 25mg Amado Tablets Nexium Unknown 40mg Capsules DR Potassium Chloride Carmen MERRILL, Ernestine ER Amado 20Meq Tablets ER Pioglitazone HCL Take One Tablet By Unknown 30mg Mouth Every Day Tablets Dicyclomine HCL Take One Capsule By Unknown 10mg Mouth Three Times A Capsules Day as Needed Ondansetron Dissolve One Tablet Unknown 4mg Tablets On Tongue Every 8 Dispers Hours as Needed For Nausea Phenadoz Insert One Unknown 25mg Suppository Suppository Rectally Four Times A Day as Needed Amitiza Take One Capsule By Unknown 24mcg Capsules Mouth Twice A Day Immunizations Description No Information Available Vital Signs Date Vital Result Comment 04/26/2019 10:48am Intraocular Pressure Right Eye 14 mmHg Intraocular Pressure Left Eye 14 mmHg 04/05/2019 9:25am Intraocular Pressure Right Eye 16 mmHg Intraocular Pressure Left Eye 16 mmHg Results Description No Information Available Procedures Date Code Description Status 04/26/2019 93515 Oct, Optic Nerve Completed 04/26/2019 58618 Eye Exam Est Intermediate Completed 04/05/2019 78952 Visual Field Exam Extended, Unilateral Or Bilateral Completed 01/21/2019 98895 Oct, Optic Nerve Completed 01/03/2019 63178 Remove Secondary Cataract, Laser (Yag) Completed 12/24/2018 82123 Remove Secondary Cataract, Laser (Yag) Completed Medical Devices Description No Information Available Encounters Type Date Location Provider Dx Diagnosis Office Visit 04/05/2019 Main Office Omer Leavitt, H40.1132 Primary open- angle 9:30a M.D. glaucoma, bilateral, moderate stage Office Visit 01/21/2019 Main Office Gigi Stauffer, OD Z96.1 Presence of 9:45a intraocular lens H16.143 Punctate keratitis, bilateral H40.1132 Primary open-angle glaucoma, bilateral, moderate stage Assessments Date Code Description Provider 04/26/2019 H40.1132 Primary open-angle glaucoma, bilateral, Omer Leavitt M.D. moderate stage 04/26/2019 Z96.1 Presence of intraocular lens Omer Leavitt M.D. 04/05/2019 H40.1132 Primary open-angle glaucoma, bilateral, Omer Leavitt M.D. moderate stage 01/21/2019 Z96.1 Presence of intraocular lens Gigi Stauffer, OD 01/21/2019 H16.143 Punctate keratitis, bilateral Gigi Stauffer, OD 01/21/2019 H40.1132 Primary open-angle glaucoma, bilateral, Gigi Stauffer, OD moderate stage 01/03/2019 H26.492 Other secondary cataract, left eye Omer Leavitt M.D. 12/24/2018 H26.491 Other secondary cataract, right eye Omer Leavitt M.D. 11/12/2018 H26.493 Other secondary cataract, bilateral Gigi Stauffer, OD 11/12/2018 H40.1132 Primary open-angle glaucoma, bilateral, Gigi Stauffer, OD moderate stage 11/12/2018 H16.143 Punctate keratitis, bilateral Gigi Stauffer, OD Plan of Treatment 04/26/2019 - Omer Leavitt M.D.H40.1132 Primary open-angle glaucoma, bilateral , moderate stageFollow up:4 mos fullZ96.1 Presence of intraocular lens Functional Status Description No Information Available Mental Status Description No Information Available Referrals Description No Information Available
--- OUTSIDE RECORDS SUMMARY | 2019-06-03 22:28 | XMS REPORT | Continuity of Care Document ---
:1955 External Reference #:[id number] Author Name Omer Leavitt M.D. Address [address] [place] [address] Care Team Providers Name Role Phone Carmen MERRILL, Amado - Internal Care Team Information Burn Nurse [phone] [facility] Care Team Information Burn Nurse [phone] Problems Active Problems Provider Date Open-angle glaucoma [...] Patient has never smoked Smoking Status Reviewed: 04/05/19 Patient has never smoked Allergies, Adverse Reactions, Alerts Description No Known Drug Allergies Medications Active Medications SIG Qnty Indications Ordering Date Provider Latanoprost 1 drops both eyes 7.5ml H40.1132 Omer Leavitt, 04/05/2019 0.005% every night M.D. Solution Atorvastatin Calcium Unknown 20mg Tablets Fany Morales MD, 100mg Tablets Amado Klor-Con M20 Carmen MERRILL, 20Meq Amado Tablets ER Losartan Potassium Carmen MERRILL, 25mg Amado Tablets Nexium Unknown 40mg [...] Unknown 24mcg Capsules Mouth Twice A Day History Medications Refresh P.M. /" ribbon 3.500gm Omer Leavitt, 10/16/2018 - applied to ocular M.DAnna 01/03/2019 Ointment surface every night at bedtime both eyes Immunizations Description No Information Available Vital Signs Date Vital Result Comment 04/05/2019 9:25am Intraocular Pressure Right Eye 16 mmHg Intraocular Pressure Left Eye 16 mmHg 01/21/2019 10:05am Intraocular Pressure Right Eye 17 mmHg Intraocular Pressure Left Eye 17 mmHg Results Description No Information Available Procedures Date Code Description Status 04/05/2019 92473 Visual Field Exam Extended, Unilateral Or Bilateral Completed 04/05/2019 49971 Eye Exam New Intermediate Completed 01/21/2019 47828 Oct, Optic Nerve Completed 01/03/2019 46829 Remove Secondary Cataract, Laser (Yag) Completed 12/24/2018 17440 Remove Secondary Cataract, Laser (Yag) Completed Medical Devices Description No Information Available Encounters Type Date Location Provider Dx Diagnosis Office Visit 01/21/2019 Main Office Gigi Stauffer, OD Z96.1 Presence of 9:45a intraocular lens H16.143 Punctate keratitis, bilateral H40.1132 Primary open-angle glaucoma, bilateral, moderate stage Assessments Date Code Description Provider 04/05/2019 H40.1132 Primary open-angle glaucoma, bilateral, Omer [...] H16.143 Punctate keratitis, bilateral Gigi Stauffer, OD 10/16/2018 H40.1132 Primary open-angle glaucoma, bilateral, Gigi Stauffer, OD moderate stage 10/16/2018 H26.493 Other secondary cataract, bilateral Gigi Stauffer, OD 10/16/2018 H16.143 Punctate keratitis, bilateral Gigi Stauffer, OD 10/09/2018 H40.1132 Primary open-angle glaucoma, bilateral, Gigi Stauffer, OD moderate stage 10/09/2018 Z96.1 Presence of intraocular lens Gigi Stauffer, OD Plan of Treatment 04/05/2019 - Omer Leavitt M.D.H40.1132 Primary open-angle glaucoma, bilateral , moderate stageNew Medication:Latanoprost 0.005 % - 1 drops both eyes every nightFollow up:3 wk iop Functional Status Description No Information Available Mental Status Description No Information Available Referrals Description No Information Available
[2019-06-03 23:29] LABS: Urine Appearance Clear; Urine Bilirubin Negative (Negative); Urine Blood Negative (Negative); Urine Color Straw; Urine Glucose Negative (Negative); Urine Ketones Negative (Negative); Urine Nitrite Negative (Negative); Urine Protein Negative (Negative); Urine Specific Gravity 1.009 (1.010-1.030); Urine Urobilinogen Negative (Negative)
[2019-06-03 23:41] LABS: ABS Eosinophils 0.2 10^3/ul (0-0.6); ABS Lymphocytes 2.1 10^3/ul (1.0-4.8); ABS Monocytes 0.7 10^3/ul (0-0.8); ABS Neutrophils 4.9 10^3/ul (1.5-7.7); Eosinophil % 1.9 %; Hematocrit 34 % (35-47); Hemoglobin 11.2 g/dL (12.0-16.0); Lymphocyte % 26.6 %; Mean Corpuscular HGB Conc 33 g/dL (31-36); Mean Corpuscular Hemoglobin 27 pg (27-31); Mean Corpuscular Volume 83 fL (80-97); Mean Platelet Volume 7.7 fL (7.4-10.4); Nucleated Red Blood Cells % 0.1; Platelet Count 256 10^3/uL (150-450); Red Blood Count 4.13 10^6 /uL (3.70-4.87); Red Cell Distribution Width 17 % (10-15); White Blood Count 7.8 10^3/uL (3.5-10.8)
[2019-06-03 23:43] LABS: Albumin 3.3 g/dL (3.2-5.2); Albumin/Globulin Ratio 1.1 (1-3); BUN/Creatinine Ratio 20.9 (8-20); C Reactive Protein 1.71 mg/L (<8.01); Calcium 8.8 mg/dL (8.6-10.3); EGFR African American 80.6 (>60); EGFR Non-African American 66.6 (>60); Globulin 2.9 g/dL (2-4); Potassium 3.9 mmol/L (3.5-5.0); Total Bilirubin 0.2 mg/dL (0.2-1.0); Total Protein 6.2 g/dL (6.4-8.9)
[2019-06-04] MEDS ORDERED: Butalb/Acetamin/Caff TAB* 1 TAB PO ONE (01:40)
[2019-06-04] MEDS ORDERED: ASA-APAP-CAFFEINE ES (NF) 1 TAB TAB PO SCH (02:00)
[2019-06-04 02:04] VITALS: BP 145/79
== END 2019-06-04 02:03 | disposition home or self-care (01) ==
LOC: ED 21:47
DX: R51 Headache (principal); G89.29 Other chronic pain; R10.9 Unspecified abdominal pain; K58.9 Irritable bowel syndrome, unspecified; E11.9 Type 2 diabetes mellitus without complications; K21.9 Gastro-esophageal reflux disease without esophagitis; E78.00 Pure hypercholesterolemia, unspecified; I10 Essential (primary) hypertension; R42 Dizziness and giddiness; H53.8 Other visual disturbances; Z79.899 Other long term (current) drug therapy; Z90.710 Acquired absence of both cervix and uterus; Z79.84 Long term (current) use of oral hypoglycemic drugs; F41.9 Anxiety disorder, unspecified
CPT/HCPCS: 36415; 80053; 81003; 83605; 83690; 85025; 86140; 99283; A9270-GY

== ENCOUNTER 2019-09-13 21:41 | Emergency (ER) | payer MEDICARE, MEDICAID ==
--- OUTSIDE RECORDS SUMMARY | 2019-09-13 22:07 | XMS REPORT | Continuity of Care Document ---
:1955 External Reference #:[id number] Author Name Chiara Yeboah MD (transmitted by agent of provider Jessica Miranda) Address [address] [place] [address] Care Team Providers Name Role Phone Bhavana Rosas M.D. - Family Medicine Care Team Information Medical Pathology Teacher Omer Ca MD - Gastroenterology Care Team Information Medical Pathology Teacher Maikel Lloyd MD - Care Team Information Medical Pathology Teacher [phone] Otolaryngology Problems Active Problems Provider Date Type 2 diabetes mellitus Amado Morales M.D.,FACP Onset: 07/09/2007 Gastroesophageal reflux disease Amado Morales M.D.,FACP Onset: 2007 Degenerative joint disease involving Amado Morales M.D.,FACP Onset: multiple joints Allergic rhinitis due to pollen Mitzy Aldana, N.P. Onset: 04/04/2012 Dermatitis Amado Morales M.D.,FACP Onset: 07/09/2007 Chronic mixed headache syndrome Amado Morales M.D.,FACP Onset: 2013 Irritable bowel syndrome Amado Morales M.D.,FACP Onset: 07/09/2007 Sciatica Morales Ybarra M.D. Onset: 04/02/2018 Social History Type Date Description Comments Sex Unknown Tobacco Use Start: Unknown Never Smoked Cigarettes ETOH Use 12/01/2017 Denies alcohol use Tobacco Use Start: Unknown Patient has never smoked Recreational Drug Use Denies Drug Use Smoking Status Reviewed: 09/03/19 Patient has never smoked Allergies, Adverse Reactions, Alerts Active Allergies Reaction Severity Comments Date Lisinopril rash 02/29/2012 Levsin urticaria 03/02/2012 Inactive Allergies NKDA 2011 Medications Active Medications SIG Qnty Indications Ordering Date Provider Mirtazapine take 1 tab by 30tabs F43.21 Chiara 08/13/2019 30mg Tablets mouth a bedtime MD Obinna Xyzal Allergy 24HR one daily 30tabs J30.9 Bhavana Rosas MD 01/25/2019 5mg Tablets Dicyclomine HCL one by mouth up 60caps [facility] 11/09/2018 10mg to 4 x/day as Rebeca Louise Capsules needed for stomach cramps Atorvastatin Calcium take one tablet 90tabs E78.5 Bhavana Rosas MD 2018 20mg by mouth at Tablets bedtime Fluticasone Propionate 1 sprays each 16gm Bhavana Rosas MD 10/05/2018 nostril twice 50mcg/Act Suspension daily Prochlorperazine Insert One 24units [facility] 09/14/2018 25mg Suppository Rebeca Louise Suppository Rectally Every Day as Needed Pioglitazone HCL take one tablet 30tabs [facility] 09/12/2018 30mg by mouth every Rebeca Louise Tablets day Ondansetron dissolve one 30tabs H83.09 Bhavana Rosas MD 06/18/2018 4mg Tablets tablet orally Dispers every 8 hours as needed for nausea. Nabumetone take 1 tablet by 180tabs Amado Barber 05/14/2018 750mg Tablets mouth twice a day Rebeca Morales,FACP as needed Simethicone 1 tab twice a day 30units Amado Barber 11/07/2017 80mg Chewtabs as needed Rebeca Morales,JUAN RAMON bloating Potassium Chloride Take One Tablet 90tabs Amelie Galeana, 12/07/2016 Ernestine ER By Mouth Every MOLD INJECTOR 20Meq Tablets ER Day Acetaminophen Extra 1 tab q 4 hrs as 120tabs Other Ordering 10/27/2016 Strength needed for pain Provider 500mg Tablets Excedrin Migraine 1 tab bid as 30tabs Other Ordering 10/27/2016 needed for Provider [phone] Tablets migraine Poise Pads Moderate pt uses 4 pads 120units Allen Umair, 10/19/2016 Absorbency Long per day, may fill LINE SERVICE SUPERVISOR Pads generically Depend Silhouette or generic 120units Allen Umair, 08/30/2016 Active Fit equivalent change LINE SERVICE SUPERVISOR Misc twice a day as needed Bathtub Safety Rail 1 safety bar for 1units N39.46 Allen Block, 2016 Misc tub use LINE SERVICE SUPERVISOR M15.0 Raised Toilet Seat use for ease of 1units N39.46 Allen Block, LINE SERVICE SUPERVISOR 2016 Misc toileting Senna take two tablets by 180tabs Bhavana Rosas MD 05/27/2016 8.6mg Tablets mouth at bedtime as needed for constipation Freestyle Lite Test use for testing 100units Amado Barber 05/11/2016 daily and as needed Rebeca Morales,FACP Strips e11.9 Blood Pressure check bp twice a 1units I10 Allen Block NP 12/04/2015 Kit/Oscillating/Digita week l Kit Freestyle Lancets use as directed 50units Amado Barber 05/23/2014 [facility] Rebeca Morales,FACP Walker With Wheels, use as need for Dx 1units Amado Barber 10/10/2013 Basket And Brakes code: 250.60 Rebeca Morales,FACP 1-07/31" Diabetic Neuropathy [facility] Humidifier 1.25 Gallon use daily 1units Amado Barber 04/23/2013 Rebeca Morales,FACP 1.25Gal [facility] T.E.D. Anti-Embolism please fit, pt 3units R60.0 Catalina Bobby, 2012 Stockings Knee Length prefers black N.P. Misc Amitiza take one capsule by 60caps K58.1 Bhavana Rosas MD 11/21/2012 24mcg Capsules mouth twice a day Nexium take one capsule by 90caps K21.9 Chiara Yeboah, 11/09/[address] mouth every day Losartan Potassium take one tablet by 90tabs I10 Chiara Yeboah, 2011 25mg mouth every day MD Tablets Triamcinolone Apply topically to 15gm L50.0 Bhavana Rosas MD 03/02/2012 Acetonide affected area twice 0.1% Cream a day for 2 weeks and then as needed. Januvia take one tablet by 30tabs Venecia Sorto, 06/08/2011 100mg Tablets mouth every day Rebeca, FACP Freestyle Lite Blood check fingerstick 1units Amado Barber 05/26/2011 Glucose Monitoring daily Rebeca Morales,FACP System Device Multivitamins one po qday 30tabs Amado Barber 11/24/2010 Tablets Rebeca Morales,FACP Calcium 1 per day Morales 04/08/2010 1000mg Rebeca Ybarra Thermacare Back/Hip topical tid prn 30units Amado Barber 10/30/2009 Misc Rebeca Morales,FACP for delivery Carafate take 10ml (2 420units K21.9 Alexis EAnna 01/01/2008 1GM/10ML teaspoonful) by Rebeca Reeves Suspension mouth four times a day as needed Salonpas Lidocaine Unknown Lidocaine Viscous Unknown 2% Solution Immunizations CPT Code Status Date Vaccine Lot # [id number] Given 08/13/2019 Pneumonia Vaccine [id number] 70633 Given 04/27/2018 Influenza Virus Vaccine, Quadrivalent, Split, [id number] Preservative Free 29675 Given 03/30/2017 Influenza Virus Vaccine, Quadrivalent, Split, [id number] Preservative Free 26687 Given 02/24/2017 Zoster (Zostavax) [id number] 57316 Given 04/20/2016 Influenza Virus Vaccine, Quadrivalent, Split, [id number] Preservative Free 06505 Given 05/22/2015 Influenza Virus Vaccine, Quadrivalent, Split, [id number] Preservative Free 18680 Given 04/14/2014 Influenza Virus Vaccine, Quadrivalent, Split, [id number] Preservative Free 58441 Given 04/17/2013 Flu Vaccine Split Virus Preservative Free For [id number] Indiv 3Yr Older 49700 Given 11/09/2012 Hepatitis B Vaccine Adult Dosage [id number] Q2038 Given 04/04/2012 Fluzone Vaccine [id number] 81324 Given 02/27/2012 Hepatitis B Vaccine Adult Dosage [id number] 94047 Given 01/26/2012 Hepatitis B Vaccine Adult Dosage [id number] 79394 Given 10/27/2011 Tdap - Tetanus/Diptheria/Acellular Pertussis [id number] 30773 Given 04/22/2011 Influenza Virus 3Yrs & Over [id number] 23921 Given 05/14/2010 Influenza Virus 3Yrs & Over [id number] 12651 Given 05/26/2009 Influenza Virus Vaccine, Pandemic Formulation [id number] 27518 Given 05/26/2009 Administration Swine Flu Shot 68514 Given 05/19/2009 Influenza Virus 3Yrs & Over [id number] 72969 Given 05/12/2008 Influenza Virus 3Yrs & Over 40863 Given 05/23/2007 Influenza Virus 3Yrs & Over 14325 Given 05/23/2007 Influenza Virus 3Yrs & Over [id number] 09807 Given 04/10/2007 Pneumonia Vaccine Vital Signs Date Vital Result Comment 09/03/2019 10:40am Height 65 inches 5'5" Weight 273.00 lb Heart Rate 98 /min BP Systolic 122 mmHg BP Diastolic 86 mmHg Body Temperature 98.2 F O2 % BldC Oximetry 98 % BMI (Body Mass Index) 45.4 kg/m2 08/13/2019 10:27am Height 65 inches 5'5" Weight 273.00 lb Heart Rate 82 /min BP Systolic Sitting 124 mmHg Manual BP Diastolic Sitting 82 mmHg Manual O2 % BldC Oximetry 98 % BMI (Body Mass Index) 45.4 kg/m2 Results Test Acquired Date Facility Test Result H/L Range Note Basic Metabolic 08/13/2019 [facility] Sodium 140 mmol/L Normal 135-[address] [place] [address] [phone] Potassium 4.3 mmol/L Normal 3.5-5.0 Chloride 107 mmol/L Normal 101-111 Co2 Carbon Dioxide 25 mmol/L Normal 22-32 Anion Gap 8 mmol/L Normal 2-11 Glucose 109 mg/dL High 70-100 Blood Urea Nitrogen 13 mg/dL Normal 6-24 Creatinine 0.76 mg/dL Normal 0.51-0.95 BUN/Creatinine Ratio 17.1 Normal 8-20 Calcium 9.3 mg/dL Normal 8.6-10.3 Egfr Non- 76.9 >60 Egfr 93.0 >60 1 Laboratory test 08/13/2019 Shipping Order Clerk In House Hemoglobin A1c 6.4 5-7 finding CBC Auto Diff 06/03/2019 [facility] White Blood 7.8 Normal 3.5 -10.[address] Count 10^3/[place] [address] [phone] Red Blood Count 4.13 10^6/uL Normal 3.70-4.87 Hemoglobin 11.2 g/dL Low 12.0-16.0 Hematocrit 34 % Low 35-47 Mean Corpuscular Volume 83 fL Normal 80-97 Mean Corpuscular Hemoglobin 27 pg Normal 27-31 Mean Corpuscular HGB Conc 33 g/dL Normal 31-36 Red Cell Distribution Width 17 % High 10-15 Platelet Count 256 10^3/uL Normal 150-450 Mean Platelet Volume 7.7 fL Normal 7.4-10.4 Abs Neutrophils 4.9 10^3/uL Normal 1.5-7.7 Abs Lymphocytes 2.1 10^3/uL Normal 1.0-4.8 Abs Monocytes 0.7 10^3/uL Normal 0-0.8 Abs Eosinophils 0.2 10^3/uL Normal 0-0.6 Abs Basophils 0.0 10^3/uL Normal 0-0.2 Abs Nucleated RBC 0.0 10^3/uL Granulocyte % 62.3 % Lymphocyte % 26.6 % Monocyte % 8.9 % Eosinophil % 1.9 % Basophil % 0.3 % Nucleated Red Blood Cells % 0.1 Comp Metabolic 06/03/2019 [facility] Sodium 138 mmol/L Normal 135-[address] [place] [address] [phone] Potassium 3.9 mmol/L Normal 3.5-5.0 Chloride 110 mmol/L Normal 101-111 Co2 Carbon Dioxide 22 mmol/L Normal 22-32 Anion Gap 6 mmol/L Normal 2-11 Glucose 149 mg/dL High 70-100 Blood Urea Nitrogen 18 mg/dL Normal 6-24 Creatinine 0.86 mg/dL Normal 0.51-0.95 BUN/Creatinine Ratio 20.9 High 8-20 Calcium 8.8 mg/dL Normal 8.6-10.3 Total Protein 6.2 g/dL Low 6.4-8.9 Albumin 3.3 g/dL Normal 3.2-5.2 Globulin 2.9 g/dL Normal 2-4 Albumin/Globulin Ratio 1.1 Normal 1-3 Total Bilirubin 0.20 mg/dL Normal 0.2-1.0 Alkaline Phosphatase 79 U/L Normal 34-104 Alt 17 U/L Normal 7-52 Ast 19 U/L Normal 13-39 Egfr Non- 66.6 >60 Egfr 80.6 >60 2 Laboratory test 06/03/2019 [facility] Lipase 53 U/L Normal 11.0-82.[address] [place] [address] [phone] C Reactive Protein 1.71 mg/L Normal <8.01 Lactic Acid 1.3 mmol/L Normal 0.5-2.0 3 1 Because ethnic data is not always readily [...] 15-29 5 Kidney failure <15 (or dialysis) 2 Because ethnic data is not always readily [...] 15-29 5 Kidney failure <15 (or dialysis) 3 [facility] Severe Sepsis and Septic Shock Management Bundle Measure requires all lactic acids initially measuring >2.0 mmol/L be repeated. Procedures Date Code Description Status 07/26/2018 [id number] Bone Mineral Density Test Completed 07/19/2018 [id number] Diabetic Retinal Eye Exam Completed 07/06/2018 [id number] Mammogram Completed 04/20/2017 [id number] Mammogram Completed 09/02/2016 [id number] Diabetic Foot Exam Completed 09/23/2015 [id number] Diabetic Retinal Eye Exam Completed 01/01/2015 [id number] Mammogram Completed 07/23/2014 [id number] Diabetic Retinal Eye Exam Completed 03/20/2014 [id number] Diabetic Retinal Eye Exam Completed 05/16/2013 [id number] Mammogram Completed 08/11/2011 [id number] Mammogram Completed 08/04/2010 [id number] Mammogram Completed 07/02/2009 [id number] Colonoscopy Completed 06/17/2009 [id number] Mammogram Completed 05/21/2008 [id number] Mammogram Completed 05/24/2003 [id number] Colonoscopy Completed Medical Devices Description No Information Available Encounters Type Date Location Provider Dx Diagnosis Office Visit 08/13/2019 [facility] Chiara Yeboah, E11.9 Type 2 diabetes 11:00a Medicine - [facility] mellitus without complications F43.21 Adjustment disorder with depressed mood M54.5 Low back pain Z23 Encounter for immunization Z68.42 Body mass index (BMI) 45.0-49.9, adult Office Visit 04/30/2019 9:20a [facility] Internal Bhavana Rosas MD M54.5 Low back pain Medicine - [facility] F43.21 Adjustment disorder with depressed mood R60.0 Localized edema E11.9 Type 2 diabetes mellitus without complications Assessments Date Code Description Provider 09/03/2019 F43.21 Adjustment disorder with depressed mood Chiara Yeboah MD 09/03/2019 E11.9 Type 2 diabetes mellitus without complications Chiara Yeboah MD 09/03/2019 M54.5 Low back pain Chiara Yeboah MD 09/03/2019 Z23 Encounter for immunization Chiara Yeboah MD 09/03/2019 Z68.42 Body mass index (BMI) 45.0-49.9, adult Chiara Yeboah MD 08/13/2019 E11.9 Type 2 diabetes mellitus without complications Chiara Yeboah MD 08/13/2019 F43.21 Adjustment disorder with depressed mood Chiara Yeboah MD 08/13/2019 M54.5 Low back pain Chiara Yeboah MD 08/13/2019 Z23 Encounter for immunization Chiara Yeboah MD 08/13/2019 Z68.42 Body mass index (BMI) 45.0-49.9, adult Chiara Yeboah MD 04/30/2019 M54.5 Low back pain Bhavana Rosas MD 04/30/2019 F43.21 Adjustment disorder with depressed mood Bhavana Rosas MD 04/30/2019 R60.0 Localized edema Bhavana Rosas MD 04/30/2019 E11.9 Type 2 diabetes mellitus without complications Bhavana Rosas MD Plan of Treatment Future Appointment(s):12/02/2019 10:40 am - [facility] Chiara Yeboah MDF43.21 Adjustment disorder with depressed moodFollow up:3 mlsxsjV21.9 Type 2 diabetes mellitus without xvmsxcwemumrtQ68.5 Low back painZ23 Encounter for spjtrclviclgU37.42 Body mass index (BMI) 45.0-49.9, adult Functional Status Description No Information Available Mental Status Description No Information Available Referrals Refer to Dr Reason for Referral Status Appt Date [facility] Sent [address] [place] [address] [phone] Omer Leavitt MD Sent 09/02/2019 [address] [place] [address] [phone] Justino Momin MD Sent [address] [place], [place] [id number] [phone] Jerson Silverio MD pt established with you for several years, now Sent 05/06 with recurrence of low back pain, suspected stenosis [address] [place], [place] [id number] [phone]
--- OUTSIDE RECORDS SUMMARY | 2019-09-13 22:07 | XMS REPORT | Continuity of Care Document ---
:1955 External Reference #:[id number] Author Name Chiara Yeboah MD (transmitted by agent of provider Keyona Bynum) Address [address] [place] [address] Care Team Providers Name Role Phone Bhavana Rosas M.D. - Family Medicine Care Team Information [employer]eman Omer Ca MD - Gastroenterology Care Team Information [employer] Maikel Lloyd MD - Care Team Information [employer] [phone] Otolaryngology Problems Active Problems Provider Date Type [...] Amado Morales M.D.,FACP Onset: 07/09/2007 Sciatica Morales bYarra M.D. Onset: 04/02/2018 Social History Type Date Description Comments Sex Unknown Tobacco Use Start: Unknown Never Smoked Cigarettes ETOH Use 12/01/2017 Denies alcohol use Tobacco Use Start: Unknown Patient has never smoked Recreational Drug Use Denies Drug Use Smoking Status Reviewed: 08/13/19 Patient has never smoked Allergies, Adverse Reactions, Alerts Active Allergies Reaction Severity Comments Date Lisinopril rash 02/29/2012 Levsin urticaria 03/02/2012 Inactive Allergies NKDA 2011 Medications Active Medications SIG Qnty Indications Ordering Date Provider Mirtazapine Take 1 tab by 30tabs F43.21 Chiara 08/13/2019 [...] 50mcg/Act Suspension daily Prochlorperazine Insert One 24units [facility] 09/14/2018 25mg Suppository Rebeca Louise [...] 750mg Tablets mouth twice a day Rebeca Morales,PURNIMAP as needed Simethicone 1 tab twice a day 30units Amado Barber 11/07/2017 80mg Chewtabs as needed Rebeca Morales,JUAN RAMON bloating Potassium Chloride Take One Tablet 90tabs Amelie Galeana, 12/07/2016 [facility] By Mouth Every TURPENTINE DISTILLER 20Meq Tablets ER Day Acetaminophen Extra 1 tab q 4 hrs as 120tabs Other Ordering 10/27/2016 Strength needed for pain Provider 500mg Tablets Excedrin Migraine 1 tab bid as 30tabs Other Ordering 10/27/2016 needed for Provider [phone] Tablets migraine Poise Pads Moderate pt uses 4 pads 120units Allen Block, 10/19/2016 Absorbency Long per day, may fill CASTING CLEANER Pads generically Depend Silhouette or generic 120units Allen Block, 08/30/2016 Active Fit equivalent change CASTING CLEANER Misc twice a day as needed Bathtub Safety Rail 1 safety bar for 1units N39.46 Allen Umair, 2016 Misc tub use CASTING CLEANER M15.0 Raised Toilet Seat use for ease of 1units N39.46 Allen Block, CASTING CLEANER 2016 Misc toileting Senna take two tablets [...] use as directed 50units [facility]ado Barber [facility],FACP Walker With Wheels, use as need for Dx 1units Amado Barber 10/10/2013 Basket And Brakes code: 250.60 Rebeca Morales,FACP 1-07/31" Diabetic Neuropathy [facility] Humidifier 1.25 Gallon use daily 1units Amado Barber 04/23/2013 Rebeca Morales,FACP 1.25Gal [facility] T.E.D. Anti-Embolism please fit, pt 3units R60.0 [...] for 2 weeks and then as needed. Sauluvia take one tablet by 30tabs Venecia Montgomeryon, 06/08/2011 100mg Tablets mouth every day Rebeca, [...] Carafate take 10ml (2 420units K21.9 Alexis Hartley 01/01/2008 1GM/10ML teaspoonful) by Rebeca Reeves Suspension mouth four times a day as needed Salonpas Lidocaine Unknown Lidocaine Viscous Unknown 2% Solution Immunizations CPT Code Status Date Vaccine Lot # [id number] Given 08/13/2019 Pneumonia Vaccine [id number] 53255 Given 04/27/2018 Influenza Virus Vaccine, Quadrivalent, Split, [id number] Preservative Free [id number] Given 03/30/2017 Influenza Virus Vaccine, Quadrivalent, Split, [id number] Preservative Free 73544 Given 02/24/2017 Zoster (Zostavax) [id number] 37607 Given 04/20/2016 Influenza Virus Vaccine, Quadrivalent, Split, [id number] Preservative Free 03288 Given 05/22/2015 Influenza Virus Vaccine, Quadrivalent, Split, [id number] Preservative Free 83784 Given 04/14/2014 Influenza Virus Vaccine, Quadrivalent, Split, [id number] Preservative Free 03280 Given 04/17/2013 Flu Vaccine Split Virus Preservative Free For [id number] Indiv 3Yr Older 39818 Given 11/09/2012 Hepatitis B Vaccine Adult Dosage [id number] Q2038 Given 04/04/2012 Fluzone Vaccine [id number] 79747 Given 02/27/2012 Hepatitis B Vaccine Adult Dosage [id number] 41018 Given 01/26/2012 Hepatitis B Vaccine Adult Dosage [id number] 51940 Given 10/27/2011 Tdap - Tetanus/Diptheria/Acellular Pertussis [id number] 78647 Given 04/22/2011 Influenza Virus 3Yrs & Over [id number] 04989 Given 05/14/2010 Influenza Virus 3Yrs & Over [id number] 17305 Given 05/26/2009 Influenza Virus Vaccine, Pandemic Formulation [id number] 65034 Given 05/26/2009 Administration Swine Flu Shot 07501 Given 05/19/2009 Influenza Virus 3Yrs & Over [id number] 27099 Given 05/12/2008 Influenza Virus 3Yrs & Over 42200 Given 05/23/2007 Influenza Virus 3Yrs & Over 99097 Given 05/23/2007 Influenza Virus 3Yrs & Over [id number] 60121 Given 04/10/2007 Pneumonia Vaccine Vital Signs Date Vital Result Comment 08/13/2019 10:27am Height 65 inches 5'5" Weight 273.00 lb Heart Rate 82 /min BP Systolic Sitting 124 mmHg Manual BP Diastolic Sitting 82 mmHg Manual O2 % BldC Oximetry 98 % BMI (Body Mass Index) 45.4 kg/m2 04/30/2019 9:09am Height 65 inches 5'5" Weight 250.00 lb Heart Rate 79 /min BP Systolic Sitting 120 mmHg Lue lg cuff BP Diastolic Sitting 78 mmHg Lue lg cuff O2 % BldC Oximetry 97 % BMI (Body Mass Index) 41.6 kg/m2 Results Test Acquired Date Facility Test Result H/L Range Note Laboratory test 08/13/2019 [facility] In House Hemoglobin A1c 6.4 5-7 finding CBC Auto Diff 06/03/2019 [facility] White Blood 7.8 Normal 3.5 -10.[address] Count 10^3/[place] [address] [phone] Red Blood Count 4.13 10^6/uL Normal 3.70-4.87 [...] Blood Cells % 0.1 Comp Metabolic 06/03/2019 [facility] Sodium 138 mmol/L Normal 135-145 Panel [address] [place] [address] [phone] Potassium 3.9 mmol/L Normal 3.5-5.0 Chloride 110 [...] Egfr Non- 66.6 >60 Egfr 80.6 >60 1 Laboratory test 06/03/2019 [facility] Lipase 53 U/L Normal 11.0-82.0 finding [address] [place] [address] [phone] C Reactive Protein 1.71 mg/L Normal <8.01 Lactic Acid 1.3 mmol/L Normal 0.5-2.0 2 Laboratory test 02/14/2019 [facility] Hemoglobin A1c 6.4 % High 4.0-5.[address] (Glyco HGB) [place] [address] [phone] 1 Because ethnic data is not always [...] 5 Kidney failure <15 (or dialysis) 2 [facility] Severe Sepsis and Septic Shock Management Bundle Measure requires all lactic acids initially measuring >2.0 mmol/L be repeated. 3 Therapeutic target for the treatment of diabetes mellitus patients is <7% HBA1C, and in selective patients <6.0%. Please refer to [place] [employer] diabetic care guidelines for further information. Procedures Date Code Description Status 07/26/2018 970705205 Bone Mineral Density Test Completed 07/19/2018 [id number] Diabetic Retinal Eye Exam Completed 07/06/2018 [id number] Mammogram Completed 04/20/2017 [id number] Mammogram Completed 09/02/2016 [id number] Diabetic Foot Exam Completed 09/23/2015 [id number] Diabetic Retinal Eye Exam Completed 01/01/2015 [id number] Mammogram Completed 07/23/2014 [id number] Diabetic Retinal Eye Exam Completed 03/20/2014 [id number] Diabetic Retinal Eye Exam Completed 05/16/2013 [id number] Mammogram Completed 08/11/2011 [id number] Mammogram Completed 08/04/2010 [id number] Mammogram Completed 07/02/2009 [id number] Colonoscopy Completed 06/17/2009 [id number] Mammogram Completed 05/21/2008 [id number] Mammogram Completed 05/24/2003 [id number] Colonoscopy Completed Medical Devices Description No Information Available Encounters Type Date Location Provider Dx Diagnosis Office Visit 04/30/2019 [facility] Internal Bhavana Rosas MD M54.5 [facility]21 Adjustment disorder with depressed mood R60.0 Localized edema E11.9 Type 2 diabetes mellitus without complications Assessments Date Code Description Provider 08/13/2019 E11.9 Type 2 diabetes mellitus without [...] Bhavana Rosas MD Plan of Treatment Future Appointment(s):09/03/2019 11:00 am - Chiara Yeboah MD at [facility] - Chiara Yeboah MDE11.9 Type 2 diabetes mellitus without complicationsComments:You have had stability in your A1c 6.4Continue to take all medications as directedYou are due for labs You are on a moderate- potency statin to prevent new or recurrent heart disease, which is common indiabetics. Goal Hemoglobin A1c is less than 7.0% in ages 18-74Goal Hemoglobin A1c is between 7.0% and 8.0% in age over 75Goal Blood pressure is less than 130/ 85.Cholesterol should be lowered by a high or moderate-dose statin. You are also due for cholesterol testing. Please schedule your annual examat your easrliest convenience.Referral:[facility], Omer Meng MD, OphthalmologyJustino Momin MD, ZpoqmnvesaS11.21 Adjustment disorder with depressed moodNew Medication: Mirtazapine 30 mg - Take 1 tab by mouth a bedtimeComments:Please increase Mirtazipine to 30mg once daily in the evening Can take 2-15mg tab until filling new doseFollow up:RTO in 3 eonbyQ67.5 Low back painZ23 Encounter for yaawqdqjbbbdY87.42 Body mass index (BMI) 45.0-49.9, adultReferral:[facility], Certified Paralegal Functional Status Description No Information Available Mental Status Description No Information Available Referrals Refer to Reason for Referral Status Appt Date [facility] Created [address] [place], [place] [id number] [phone] Omer Leavitt MD Created [address] [place] [address] [phone] Justino Momin MD Created [address] [place] [address] [phone] Jerson Silverio MD pt established with you for several years, now Sent 05/06 with recurrence of low back pain, suspected stenosis [address] [place] [address] [phone]
[2019-09-13] MEDS ORDERED: Naproxen TAB* 375 MG PO ONE (23:01)
--- NOTE | 2019-09-13 23:02 | ED ---
Dizziness - HPI Summary HPI Summary: This patient is a 64 year old female brought in by EMS presenting to [facility] with a chief complaint of headache and dizziness 12 hours ago. She states she has a Hx of diabetes and she checked her glucose of 160. She states she took 3 sets of Tylenol for the pain and after taking each set it would help but then come back shortly after. She describes the dizziness as a lightheadedness. She states she gets headaches often and would take medication and it would go away but this time the headache did not resolve. She states mild blurred vision. - History Of Current Complaint Chief Complaint: EDDizziness Stated Complaint: DIZZY PER EMS Time Seen by Provider: 09/13/19 22:52 Hx Obtained From: Patient Character: Lightheaded Aggravating Factor(s): Headache - Allergies/Home Medications Allergies/Adverse Reactions: Allergies Allergy/AdvReac Type Severity Reaction Status Date / Time hyoscyamine [From Levsin] Allergy Mild Itching Verified 09/13/19 21:58 lisinopril Allergy Mild Rash Verified 09/13/19 21:58 Home Medications: Home Medications Atorvastatin* [Lipitor 20 MG*] 20 mg PO BEDTIME 05/31/16 [History Confirmed ] Esomeprazole(NF) [Nexium(NF)] 40 mg PO QAM 05/31/16 [History Confirmed 09/13/19] Losartan TAB* [Cozaar TAB*] 25 mg PO QAM 05/31/16 [History Confirmed 09/13/19] Lubiprostone [Amitiza] 24 mcg PO BID 05/31/16 [History Confirmed 09/13/19] Pioglitazone TAB* [Actos TAB*] 30 mg PO QAM 05/31/16 [History Confirmed 09/13/19 ] SitaGLIPtin (NF) [Januvia (NF)] 100 mg PO QAM 05/31/16 [History Confirmed ] Multivitamin [Multivitamins] 1 cap PO QAM 10/21/16 [History Confirmed 09/13/19] Potassium Chloride 30 meq PO QAM 05/07/18 [History Confirmed 09/13/19] Sucralfate SUSP (NF) [Carafate SUSP (NF)] 10 ml PO QID PRN 05/07/18 [History Confirmed 09/13/19] Acetaminophen [Tylophen] 500 mg PO Q4HR PRN 10/09/18 [History Confirmed 09/13/19 ] Calcium Carbonate [Calcium/C/D] 2 chw PO DAILY 10/09/18 [History Confirmed 09/13] Cold-Hot Pack [Thermacare] 1 applic TOPICAL TID PRN 10/09/18 [History Confirmed 09/13/19] Fluticasone NASAL SPRAY 50MCG* [Flonase NASAL SPRAY 50MCG*] 1 spray BOTH NARES BID PRN 10/09/18 [History Confirmed 09/13/19] Nabumetone 750 mg PO BID PRN 10/09/18 [History Confirmed 09/13/19] Simethicone [Gas Relief] 80 mg PO BID PRN 10/09/18 [History Confirmed 09/13/19] Triamcinolone 0.1% CREAM (NF) [Kenalog 0.1% Cream (NF)] 1 applic TOPICAL DAILY 10/09/18 [History Confirmed 09/13/19] Methyl Salicylate/Menthol [Salonpas Patch] 1 each TOPICAL BID PRN 10/15/18 [ History Confirmed 09/13/19] Prochlorperazine SUPP* [Compazine Supp*] 25 mg [place] DAILY PRN 10/15/18 [History Confirmed 09/13/19] Sennosides [Senna] 17.2 mg PO BEDTIME PRN 10/15/18 [History Confirmed 09/13/19] Ondansetron TAB* [Zofran 4 MG Tab*] 4 mg PO Q8H PRN 10/22/18 [History Confirmed 09/13/19] PMH/Surg Hx/FS Hx/Imm Hx Endocrine/Hematology History: Reports: Hx Diabetes - type II - oral meds Denies: Hx Anticoagulant Therapy, Hx Thyroid Disease Cardiovascular History: Reports: Hx Hypercholesterolemia, Hx Hypertension, Other Cardiovascular Problems/Disorders - HYPERCHOLESTEROLEMIA Denies: Hx Angioplasty, Hx Auto Implanted Cardiovert Defib, Hx Cardiac Arrest , Hx Congestive Heart Failure, Hx Coronary Artery Disease, Hx Deep Vein Thrombosis, Hx Pacemaker/ICD Respiratory History: Denies: Hx Asthma, Hx Chronic Obstructive Pulmonary Disease (COPD) GI History: Reports: Hx Gastroesophageal Reflux Disease, Hx Irritable Bowel - takes bentyl, amitiza, Hx Jaundice - when very young, Other GI Disorders - IBS History: Denies: Hx Dialysis, Hx Renal Disease Musculoskeletal History: Reports: Hx Arthritis - osteoarthritis, Hx Back Problems, Hx Bursitis, Other Musculoskeletal History - left hip joint disease Sensory History: Reports: Hx Cataracts - both eyes, Hx Contacts or Glasses - glasses, Hx Glaucoma Denies: Hx Hearing Aid Opthamlomology History: Reports: Hx Cataracts - both eyes, Hx Contacts or Glasses - glasses, Hx Glaucoma Neurological History: Reports: Hx Headaches, Hx Migraine, Other Neuro Impairments/Disorders - vertigo Denies: Hx Dementia, Hx Seizures Psychiatric History: Reports: Hx Anxiety - about heights Denies: Hx Panic Disorder, Hx Substance Abuse - Cancer History Hx Chemotherapy: No Hx Radiation Therapy: No - Surgical History Surgery Procedure, Year, and Place: hysterectomy 2004 Hx Anesthesia Reactions: No - Immunization History Date of Tetanus Vaccine: pt unable to recall Date of Influenza Vaccine: pt unable to recall Infectious Disease History: No Infectious Disease History: Denies: Hx Hepatitis, Hx Human Immunodeficiency Virus (HIV), Hx Tuberculosis , Traveled Outside the [place] in Last 30 Days - Family History Known Family History: Positive: Hypertension, Other - Negative for Breast CA - Social History Alcohol Use: None Hx Substance Use: No Substance Use Type: Reports: None Hx Tobacco Use: No Smoking Status (MU): Never Smoked Tobacco Review of Systems Positive: Blurred Vision Neurological/Mental Status: Other - Dizziness Positive: Headache All Other Systems Reviewed And Are Negative: Yes Physical Exam - Summary Physical Exam Summary: Appearance: Well-appearing, Well-nourished, lying in bed comfortably Skin: Warm, dry, no obvious rash Eyes: sclera anicteric, no conjunctival pallor ENT: mucous membranes moist, pharynx appears normal Neck: Supple, nontender Respiratory: Clear to auscultation, no signs of respiratory distress Cardiovascular: Normal S1, S2. No murmurs. Normal distal pulses in tibial and radial bilaterally. Abdomen: Soft, nontender, normal active bowel sounds present Musculoskeletal: Normal, Strength/ROM Intact Neurological: A&Ox3, awake and alert, mentation is normal, speech is fluent and appropriate Psychiatric: affect is normal, does not appear anxious or depressed Triage Information Reviewed: Yes Vital Signs On Initial Exam: Initial Vitals Temp Pulse Resp BP Pulse Ox 97.8 F 88 24 149/91 97 09/13/19 21:47 09/13/19 21:47 09/13/19 21:47 09/13/19 21:47 09/13/19 21:47 Vital Signs Reviewed: Yes Procedures - Sedation Patient Received Moderate/Deep Sedation with Procedure: No Diagnostics - Vital Signs Vital Signs Temp Pulse Resp BP Pulse Ox 09/13/19 21:47 97.8 F 88 24 149/91 97 - Laboratory Lab Statement: Any lab studies that have been ordered have been reviewed, and results considered in the medical decision making process. Dizzy Course/Dx - Course Course Of Treatment: This patient is a 64 year old female brought in by EMS presenting to [facility] with a chief complaint of headache and dizziness 12 hours ago. Physical exam was unremarkable. Patient felt better and was ready to go home on reevaluation. Plan for discharge was discussed with the patient and she was agreeable with this plan. - Diagnoses Provider Diagnoses: Acute headache Discharge ED - Sign-Out/Discharge Documenting (check all that apply): Patient Departure - Discharge - Discharge Plan Condition: Good Disposition: HOME Patient Education Materials: Acute Headache (ED) Referrals: Bhavana Rosas MD [Primary Care Provider] - 1 Week - Billing Disposition and Condition Condition: GOOD Disposition: Home - Attestation Statements Document Initiated by Aric: Yes Documenting Staribe: Bobby Junior Provider For Whom Aric is Documenting (Include Credential): Norris Alonzo MD Scribe Attestation: Bobby Do scribed for Norris Alonzo MD on 09/15/19 at 1952. Scribe Documentation Reviewed: Yes Provider Attestation: The documentation as recorded by the Bobby garcia accurately reflects the service I personally performed and the decisions made by me, Norris Alonzo MD Status of Scribe Document: Viewed
[2019-09-14 00:24] VITALS: BP 126/84
== END 2019-09-14 00:22 | disposition home or self-care (01) ==
LOC: ED 21:41
DX: R51 Headache (principal); R42 Dizziness and giddiness; H53.8 Other visual disturbances; E11.9 Type 2 diabetes mellitus without complications; Z79.84 Long term (current) use of oral hypoglycemic drugs; E78.00 Pure hypercholesterolemia, unspecified; I10 Essential (primary) hypertension; K21.9 Gastro-esophageal reflux disease without esophagitis; Z79.899 Other long term (current) drug therapy; Z88.8 Allergy status to other drugs, medicaments and biological substances
CPT/HCPCS: 99283; A9270-GY